=== PATIENT | male | born 1975 | race Caucasian/White ===

== ENCOUNTER 2017-12-08 00:40 | Emergency (ER) | payer BC ==
--- OUTSIDE RECORDS SUMMARY | 2017-12-08 00:43 | XMS REPORT | Continuity of Care Document ---
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
325 mg=1 Active Enteric Coated tab, PO, BID, # 2018 Ortho Tablet 60 tab, 0 and Refill(s), given Spine to patient Dexamethasone
10 mg, 1 Inactive mL, Route: IVP, 2018 Orth[facility] Drug form: INJ, and ONCE, Dosing Spine Weight 120.545, kg, Start date: 12/01/17 13:19:00 CDT, Stop date: 12/01/17 13:19:00 CDT
Notes: MEDICATION WASTE Product Size: 10 mg Product Wasted: ___ mg Aspirin 81 MG
81 mg=1 Active Chewable Tablet tab, PO, BID, # 2018 Ortho 56 tab, 0 and Refill(s) Spine Acetaminophen 325
1 tab, PO, Active MG / Hydrocodone Q6H, PRN for 2018 Ortho Bitartrate 7.5 MG pain, X 10 day, and Oral Tablet # 40 tab, 0 Spine [Adams 7.5/325] Refill(s), given to patient celecoxib 200 MG
200 mg=1 Active Oral Capsule cap, PO, BID, # 2018 Ortho [Celebrex] 28 cap, 0 and Refill(s) Spine Lisinopril
40 mg, 2 Inactive tab, Route: PO2017 Ortho Drug form: TAB, and Daily, Dosing Spine Weight 120.545, kg, Start date: 12/01/17 9:00:00 CDT, Duration: 30 day, Stop date: 12/30/17 9:00:00 CDT
Notes: (Same as: Prinivil, Zestril) carvedilol
12.5 mg, 1 Inactive tab, Route: PO, 2017 Ortho Drug form: TAB, and Daily, Dosing Spine Weight 120.545, kg, Start date: 12/01/17 9:00:00 CDT, Duration: 30 day, Stop date: 12/30/17 9:00:00 CDT
Notes: Give with food. (Same As: Coreg) Amlodipine
10 mg, 1 Inactive tab, Route: PO, 2017 Ortho Drug form: TAB, and Daily, Dosing Spine Weight 120.545, kg, Start date: 12/01/17 9:00:00 CDT, Duration: 30 day, Stop date: 12/30/17 9:00:00 CDT
Notes: (Same as: Norvasc) Aspirin 325 MG
325 mg, 1 Inactive Enteric Coated tab, Route: PO, 2017 Ortho Tablet Drug form: and ECTAB, Q12H, Spine Dosing Weight 120.545, kg, Start date: 12/01/17 9:00:00 CDT, Duration: 30 day, Stop date: 12/30/17 21:00:00 CDT
Notes: (Do Not Crush) Do not crush or chew. Zofran
4 mg, 1 Inactive tab, Route: PO, 2017 Ortho Drug form: and TABDIS, Q8H, Spine Dosing Weight 120.545, kg, Start date: 12/01/17 0:00:00 CDT, Duration: 3 doses or times, Stop date: 12/01/17 16:00:00 CDT
Notes: (Same as: Zofran ODT) Tranexamic Acid
1.95 gm, 3 Inactive tab, Route: PO, 2017 Ortho Drug form: TAB, and ONCE, Dosing Spine Weight 120.545, kg, Start date: 11/30/17 19:19:00 CDT, Stop date: 11/30/17 19:19:00 CDT
Notes: (Same as: Lysteda) Non-Formulary docusate sodium
100 mg, 1 No Longer cap, Route: PO, Active 2018 Ortho Drug form: CAP, and BID, Dosing Spine Weight 120.545, kg, Start date: 11/30/17 17:00:00 CDT, Duration: 30 day, Stop date: 12/30/17 9:00:00 CDT
Notes: (Same as: Colace) (Do Not Crush) Celebrex
200 mg, 1 No Longer cap, Route: PO, Active 2017 Ortho Drug form: CAP, and BID, Dosing Spine Weight 120.545, kg, Start date: 11/30/17 17:00:00 CDT, Duration: 30 day, Stop date: 12/30/17 9:00:00 CDT
Notes: NSAID. Please check indication. Not for seizure. (Same As: CeleBREX) Cefazolin
2 gm, 100 No Longer mL, Route: IVPB, Active 2017 Ortho Drug form: INJ, and Q6H, Dosing Spine Weight 120.545, kg, Start date: 11/30/17 16:00:00 CDT, Duration: 3 doses or times, Stop date: 12/01/17 4:00:00 CDT, ABX Indication: Surgical Prophylaxis
Notes: Same as: Ancef Diphenhydramine
50 mg, 2 No Longer cap, Route: PO, Active 2017 Ortho Drug form: CAP, and TID, Dosing Spine Weight 120.545, kg, PRN Itching, Start date: 11/30/17 13:19:00 CDT, Duration: 30 day, Stop date: 12/30/17 13:18:00 CDT
Notes: (Same as: Benadryl) POLYETHYLENE
17 gm, 1 No Longer GLYCOL 3350 pkt, Route: PO, Active 2018 Ortho Drug form: PWDR, and ONCE, Dosing Spine Weight 120.545, kg, PRN Constipation, Start date: 11/30/17 13:19:00 CDT
Notes: Dissolve in 8 oz of water or juice. (Same as: Miralax) Dulcolax Laxative
5 mg, 1 No Longer tab, Route: PO, Active 2018 Ortho Drug form: and ECTAB, ONCE, Spine Dosing Weight 120.545, kg, PRN Constipation, Start date: 11/30/17 13:19:00 CDT
Notes: (Same As: Dulcolax, Correctol) (Do Not Crush) "Do Not Crush" Melatonin
3 mg, 1 No Longer tab, Route: PO, Active 2017 Ortho Drug form: TAB, and Bedtime, Dosing Spine Weight 120.545, kg, PRN Sleep, Start date: 11/30/17 13:19:00 CDT, Duration: 30 day, Stop date: 12/30/17 13:18:00 CDT
Notes: (Same as: Melatonin) Morphine
4 mg, 2 mL, No Longer Route: IVP, Drug Active 2017 Ortho form: INJ, Q4H, and Dosing Weight Spine 120.545, kg, PRN Pain Score 7-10, Start date: 11/30/17 13:19:00 CDT, Stop date: 12/30/17 13:18:00 CDT
Notes: (Same as:MORPhine Sulfate) Acetaminophen 325
1 tab, No Longer MG / Hydrocodone Route: PO, Drug Active 2018 Ortho Bitartrate 5 MG Form: TAB, and Oral Tablet Dosing Weight Spine [Adams 5/325] 120.545, kg, Q4H, PRN Pain Score 1-3, Start date: 11/30/17 13:19:00 CDT, Duration: 30 day, Stop date: 12/30/17 13:18:00 CDT
Notes: (Same as: Adams 325/5) Do not exceed 4gm/day of acetaminophen. Famotidine
20 mg, 1 No Longer tab, Route: PO, Active 2018 Ortho Drug form: TAB, and BID, Dosing Spine Weight 120.545, kg, PRN Indigestion, Start date: 11/30/17 13:19:00 CDT, Duration: 30 day, Stop date: 12/30/17 13:18:00 CDT
Notes: (Same as: Pepcid) Tylenol
650 mg, 2 No Longer tab, Route: PO, Active 2018 Ortho Drug form: TAB, and Q6H, Dosing Spine Weight 120.545, kg, PRN For Temp > 100.4 F, Start date: 11/30/17 13:19:00 CDT, Duration: 30 day, Stop date: 12/30/17 13:18:00 CDT
Notes: Do not exceed 4 gm/day. (Same as: Tylenol) Acetaminophen 325
1 tab, No Longer MG / Hydrocodone Route: PO, Drug Active 2018 Ortho Bitartrate 10 MG Form: TAB, and Oral Tablet Dosing Weight Spine 120.545, kg, Q4H, PRN Pain Score 4-6, Start date: 11/30/17 13:19:00 CDT, Duration: 30 day, Stop date: 12/30/17 13:18:00 CDT
Notes: Do not exceed 4gm/day of acetaminophen. (Same as: Adams 325/10) NS 1,000 mL
1,000 mL, No Longer Rate: 85 ml/hr, Active 2018 Ortho Infuse over: and 11.8 hr, Route: Spine IV, Dosing Weight 120.545 kg, Total Volume: 1,000, Start date: 11/30/17 13:19:00 CDT, Duration: 30 day, Stop date: 12/30/17 13:18:00 CDT, 2.5, m2 ondansetron
Route: IV, Inactive (ANES) Drug form: INJ, 2018 Ortho ONCE, Stop date: and 11/30/17 Spine 13:10:00 CDT fentaNYL (ANES)
Route: IV, Inactive Drug form: INJ, 2018 Ortho ONCE, Stop date: and 11/30/17 Spine 13:05:00 CDT fentaNYL (ANES)
Route: IV, Inactive Drug form: INJ, 2018 Ortho ONCE, Stop date: and 11/30/17 Spine 12:20:00 CDT dexamethasone
Route: IV, Inactive (ANES) Drug form: INJ, 2018 Ortho ONCE, Stop date: and 11/30/17 Spine 10:59:00 CDT rocuronium (ANES)
Route: IV, Inactive Drug form: INJ, 2018 Ortho ONCE, Stop date: and 11/30/17 Spine 10:59:00 CDT succinylcholine
Route: IV, Inactive (ANES) Drug form: INJ, 2018 Ortho ONCE, Stop date: and 11/30/17 Spine 10:54:00 CDT midazolam (ANES)
Route: IV, Inactive Drug form: SOLN, 2018 Ortho ONCE, Stop date: and 11/30/17 Spine 10:54:00 CDT lidocaine (ANES)
Route: IV, Inactive Drug form: INJ, 2018 Ortho ONCE, Stop date: and 11/30/17 Spine 10:54:00 CDT propofol (ANES)
Route: IV, Inactive Drug form: INJ, 2018 Ortho ONCE, Stop date: and 11/30/17 Spine 10:54:00 CDT ceFAZolin (ANES)
Route: IV, Inactive Drug form: INJ, 2018 Ortho ONCE, Stop date: and 11/30/17 Spine 10:28:00 CDT Lactated Ringers
1,000 mL, Inactive IV 1,000 mL Rate: 40 ml/hr, 2018 Ortho Infuse over: 25 and hr, Route: IV, Spine Dosing Weight 120.545 kg, Total Volume: 1,000, Start date: 11/30/17 9:55:00 CDT, Duration: 30 day, Stop date: 12/30/17 9:54:00 CDT, 2.5, m2 Lactated Ringers
Route: IV, Inactive Injection IV Total Volume: 2018 Ortho (ANES) 1000 mL 1,000, Start and date: 11/30/17 Spine 9:18:00 CDT, Stop date: 11/30/17 10:18:00 CDT Zofran ODT
4 mg, 1 No Longer tab, Route: PO, Active 2017 Ortho Drug form: and TABDIS, ONCE, Spine PRN Nausea & Vomiting, Start date: 11/30/17 9:02:00 CDT
Notes: (Same as: Zofran ODT) Naloxone
0.4 mg, 1 Inactive mL, Route: IVP, 2017 Ortho Drug form: INJ, and Q2MIN, Dosing Spine Weight 121.773, kg, PRN Narcotic Reversal, Start date: 11/30/17 7:45:00 CDT, Duration: 8 doses or times, Stop date: Limited # of times
Not es: Same as Narcan Flumazenil
0.2 mg, 2 Inactive mL, Route: IVP, 2017 Ortho Drug form: INJ, and PRN, Dosing Spine Weight 121.773, kg, PRN Benzodiazepine Reversal, Initial dose, Start date: 11/30/17 7:45:00 CDT, Stop date: 11/30/17 15:00:00 CDT
Notes : (Same as: Romazicon) Hydromorphone
0.5 mg, Inactive 0.25 mL, Route: 2017 Ortho IVP, Drug form: and INJ, Q5Min, Spine Dosing Weight 121.773, kg, PRN Pain Score 7-10, Start date: 11/30/17 7:45:00 CDT, Duration: 4 doses or times, Stop date: 11/30/17 15:00:00 CDT
Notes: Same as Dilaudid Ketorolac
30 mg, 1 Inactive mL, Route: IVP, 2017 Ortho Drug form: INJ, and ONCE, Dosing Spine Weight 121.773, kg, Start date: 11/30/17 7:45:00 CDT, Stop date: 11/30/17 7:45:00 CDT
Notes: (Same as:Toradol) IV bolus must be given >15 seconds. Give IM administration slowly and deeply into the muscle. Not for use > 4 days MEDICATION WASTE Product Size: 30 mg Product Wasted: ___ mg Acetaminophen
1,000 mg, Inactive 100 mL, Route: 2018 Ortho IVPB, Drug form: and INJ, ONCE, Spine Dosing Weight 121.773, kg, PRN Pain Score 1-5, Start date: 11/30/17 7:45:00 CDT
Notes: Infuse over 15 minutes Do not exceed 4gm/day of acetaminophen MEDICATION WASTE Product Size: 1000 mg Product Wasted: ___ mg Morphine
2 mg, 0.2 Inactive mL, Route: IVP, 2017 Ortho Drug form: INJ, and Q5Min, Dosing Spine Weight 121.773, kg, PRN Pain Score 4-6, Start date: 11/30/17 7:45:00 CDT, Duration: 5 doses or times, Stop date: 11/30/17 15:00:00 CDT
Notes : (Same as:MORPhine Sulfate) Oxycodone
10 mg, 2 Inactive tab, Route: PO, 2017 Ortho Drug form: TAB, and Q4H, Dosing Spine Weight 121.773, kg, PRN Pain Score 7-10, Start date: 11/30/17 7:45:00 CDT, Stop date: 11/30/17 15:00:00 CDT
Notes: (Same as: Roxicodone) Ondansetron
4 mg, 2 mL, Inactive Route: IVP, Drug 2017 Ortho form: INJ, ONCE, and Dosing Weight Spine 121.773, kg, PRN Nausea & Vomiting, Start date: 11/30/17 7:45:00 CDT
Notes: (Same as: Zofran) MEDICATION WASTE Product Size: 4 mg Product Wasted: ___ mg Meperidine
12.5 mg, Inactive 0.5 mL, Route: 2017 Ortho IVP, Drug form: and INJ, Q10Min, Spine Dosing Weight 121.773, kg, PRN Other -See Comment, For shivering, Start date: 11/30/17 7:45:00 CDT, Duration: 2 doses or times, Stop date: 11/30/17 15:00:00 CDT
Notes: (Same as: Demerol) "Use Precaution in Elderly, Seizure disorders, and Renal impairment" Promethazine
6.25 mg, Inactive 0.25 mL, Route: 2017 Ortho IVPB, Drug form: and INJ, ONCE, Spine Dosing Weight 121.773, kg, PRN Nausea & Vomiting, Start date: 11/30/17 7:45:00 CDT
Notes: Do not give IV push. (Same as: Phenergan) Hydralazine
10 mg, 0.5 Inactive mL, Route: IVP, 2017 Ortho Drug form: INJ, and Q20Min, Dosing Spine Weight 121.773, kg, PRN Elevated BP, Start date: 11/30/17 7:45:00 CDT, Duration: 2 doses or times, Stop date: 11/30/17 15:00:00 CDT
Notes : (Same as: Apresoline) Push over 5 minutes Labetalol
10 mg, 2 Inactive 11/30/ mL, Route: IVP, 2017 Ortho Drug form: INJ, and Q5Min, Dosing Spine Weight 121.773, kg, PRN Elevated BP, Start date: 11/30/17 7:45:00 CDT, Duration: 5 doses or times, Stop date: 11/30/17 15:00:00 CDT Tranexamic Acid
1.95 gm, 3 Inactive 11/30/ tab, Route: PO, 2017 Ortho Drug form: TAB, and ONCE, Dosing Spine Weight 121.773, kg, Start date: 11/30/17 7:05:00 CDT, Stop date: 11/30/17 7:05:00 CDT
Notes: (Same as: Lysteda) Non-Formulary Zofran ODT
4 mg, 1 Inactive tab, Route: PO, 2017 Ortho Drug form: and TABDIS, ONCE, Spine Dosing Weight 121.773, kg, Start date: 11/30/17 7:04:00 CDT, Stop date: 11/30/17 7:04:00 CDT
Notes: (Same as: Zofran ODT) Celebrex
400 mg, 2 Inactive cap, Route: PO, 2017 Ortho Drug form: CAP, and ONCE, Dosing Spine Weight 121.773, kg, Start date: 11/30/17 7:04:00 CDT, Stop date: 11/30/17 7:04:00 CDT
Notes: NSAID. Please check indication. Not for seizure. (Same As: CeleBREX) Dexamethasone
10 mg, 1 Inactive mL, Route: IVP2017 Ortho Drug form: INJ, and ONCE, Dosing Spine Weight 121.773, kg, Start date: 11/30/17 7:04:00 CDT, Stop date: 11/30/17 7:04:00 CDT
Notes: MEDICATION WASTE Product Size: 10 mg Product Wasted: ___ mg Ancef
2 gm, 100 Inactive mL, Route: IVPB2017 Ortho Drug form: INJ, and ONCE, Dosing Spine Weight 121.773, kg, Start date: 11/30/17 7:03:00 CDT, Stop date: 11/30/17 7:03:00 CDT, ABX Indication: Surgical Prophylaxis
Notes: Same as: Ancef Ancef + Sodium
1 gm, Inactive Chloride 0.9% IV Route: IVPB2017 Ortho 100 mL ONCE, Dosing and Weight 121.773, Spine kg, Start date: 11/30/17 7:02:00 CDT, Stop date: 11/30/17 7:02:00 CDT, ABX Indication: Surgical Prophylaxis
Notes: (Same As: Brant Haas) MEDICATION WASTE Product Size: 1000 mg Product Wasted: ___ mg polymyxin B
125,000 No Longer sulfate + Sodium unit, Route: Active 2018 Ortho Chloride 0.9% IV IRRIG, ONCALL, and 250 mL Start date: Spine 11/30/17 6:00:00 CDT, Duration: 1 doses or times, Stop date: 11/30/17 13:00:00 CDT, ABX Indication: Surgical Prophylaxis
Notes: (Same as: Polymyxin B Sulfate) vancomycin +
500 mg, No Longer Sodium Chloride Route: IRRIG, Active 2017 Ortho 0.9% IV 250 mL ONCALL, Start and date: 11/30/17 Spine 6:00:00 CDT, Duration: 1 doses or times, Stop date: 11/30/17 13:00:00 CDT, ABX Indication: Surgical Prophylaxis
Notes: TIME CRITICAL MEDICATION (Same As: Vancocin) For adult patients only: Round to nearest 250 mg per Medical Staff approval ropivacaine 0.5%
100 ml/hr, No Longer 246.25 mg + Route: Active 2017 Ortho EPINEPHrine 0.5 InFILtration(loc and mg + ketOROLAC 30 al), ONCALL, Spine mg/mL injectable Start date: solution 30 mg + 11/29/17 6:00:00 cl CDT, Stop date: 11/29/17 13:00:00 CDT meloxicam 15 mg
15 mg=1 Active oral tablet tab, PO, Daily, 2017 Ortho # 30 tab, 0 and Refill(s) Spine amLODIPine 10 mg
10 mg=1 Active oral tablet tab, PO, Daily, 2017 Ortho TAKE DOS, # 30 and tab, 0 Refill(s) Spine carvedilol 12.5
12.5 mg=1 Active mg oral tablet tab, PO, Daily, 2017 Ortho TAKE DOS, # 60 and tab, 0 Refill(s) Spine lansoprazole 15
30 mg, PO, Active MG Enteric Coated Daily, # 15 cap, 2018 Ortho Capsule 0 Refill(s) and [Prevacid] Spine lisinopril 40 mg
40 mg=1 Active oral tablet tab, PO, Daily, 2017 Ortho # 30 tab, 0 and Refill(s) Spine Allergies, Adverse Reactions, Alerts Substance Category Reaction Severity Reaction Status Date Comments Source type Reported NKDA Assertion Drug Active [facility] allergy [facility] Immunizations Immunization Date Given Site Status Last Updated Comments Source Results Order Name Results Value Reference Date Interpretation Comments Source Range CHEM PANEL A/G Ratio 1.2 0.7 - 1.6 12/01 [facility] CHEM PANEL Globulin 2.8 g/dL 2.7 - 4.2 12/01 [facility] CHEM PANEL B/C Ratio 14 6 - 25 12/01 [facility] CHEM PANEL AGAP 10.8 meq/L 10.0 - 12/01 20.0 [facility] CHEM PANEL eGFR 108 12/01 Result Comment: The eGFR is calculated using the CKD-EPI formula. In most young, healthy individuals the eGFR will be >90 mL/ min/1.73m2. The eGFR declines with age. An eGFR of 60-89 may be normal in mL/min/1.73 /2017 some populations, particularly the elderly, for whom the CKD-EPI formula has not been extensively validated. Use of the eGFR is not recommended in the following populations: Ortho m2 and Individuals with unstable creatinine concentrations, including patients and those with serious co-morbid conditions. Spine Patients with extremes in muscle mass or diet. The data above are obtained from the National Kidney Disease Education Program (NKDEP) which additionally recommends that when the eGFR is used in patients with extremes of body mass index for purposes of drug dosing, the eGFR should be multiplied by the estimated BMI. CHEM PANEL Calcium Lvl 7.8 mg/dL 8.5 - 10.5 12/01 [facility] CHEM PANEL Potassium Lvl 3.8 meq/L 3.5 - 5.1 12/01 [facility] CHEM PANEL Chloride Lvl 101 meq/L 95 - 109 12/01 [facility] CHEM PANEL CO2 28 meq/L 24 - 32 12/01 [facility] Sp[facility] CHEM PANEL Creatinine 0.86 mg/dL 0.50 - 06/15 [facility] Lvl 1.40 /2017 [facility] Spine CHEM PANEL Glucose Lvl 126 mg/dL 70 - 99 12/01 [facility] Sp[facility] CHEM PANEL BUN 12 mg/dL 7 - 22 12/01 [facility] Sp[facility] CHEM PANEL Alk Phos 65 unit/L 39 - 136 12/01 [facility] Spine CHEM PANEL ALANINE 63 unit/L 0 - 65 12/01 [facility] AMINOTRANSFER Ortho ASE and Spine CHEM PANEL Albumin Lvl 3.4 g/dL 3.5 - 5.0 12/01 [facility] Spine CHEM PANEL Total Protein 6.2 g/dL 6.4 - 8.4 12/01 [facility] Sp[facility] CHEM PANEL Sodium Lvl 136 meq/L 135 - 145 12/01 [facility] Spine CHEM PANEL ASPARTATE 38 unit/L 0 - 37 12/01 [facility] TRANSAMINASE [facility] Spine CHEM PANEL Bili Total 0.6 mg/dL 0.2 - 1.3 12/01 [facility] and Spine HEMATOLOGY Hgb 10.9 g/dL 14.0 - 12/01 MH 18.0 [facility] and Spine HEMATOLOGY Hct 31.9 % 42.0 - 12/01 MH 54.0 Ortho and Spine BLOOD BANK Antibody Scrn Negative 11/24 RESULTS /2017 Ortho (11/24/17 12:30 PM) and Spine BLOOD BANK ABO/Rh A NEG 11/24 RESULTS /2017 [facility] and Spine CHEM PANEL Bili Total 0.7 mg/dL 0.2 - 1.3 11/24 [facility] and Spine CHEM PANEL eGFR 104 11/24 Result Comment: The eGFR is calculated using the CKD-EPI formula. In most young, healthy individuals the eGFR will be >90 mL/ min/1.73m2. The eGFR declines with age. An eGFR of 60-89 may be normal in mL/min/1.73 /2018 some populations, particularly the elderly, for whom the CKD-EPI formula has not been extensively validated. Use of the eGFR is not recommended in the following populations: Ortho m2 and Individuals with unstable creatinine concentrations, including patients and those with serious co-morbid conditions. Spine Patients with extremes in muscle mass or diet. The data above are obtained from the National Kidney Disease Education Program (NKDEP) which additionally recommends that when the eGFR is used in patients with extremes of body mass index for purposes of drug dosing, the eGFR should be multiplied by the estimated BMI. CHEM PANEL Potassium Lvl 3.6 meq/L 3.5 - 5.1 11/24 [facility] Spine CHEM PANEL Sodium Lvl 137 meq/L 135 - 145 11/24 [facility] Spine CHEM PANEL BUN 8 mg/dL 7 - 22 11/24 [facility] Spine CHEM PANEL Creatinine 0.91 mg/dL 0.50 - 06 [facility] Lvl 1.40 /2017 [facility] and Spine CHEM PANEL Glucose Lvl 96 mg/dL 70 - 99 11/24 [facility] Spine CHEM PANEL CO2 31 meq/L 24 - 32 11/24 [facility] Spine CHEM PANEL Chloride Lvl 99 meq/L 95 - 109 11/24 [facility] Spine CHEM PANEL Alk Phos 89 unit/L 39 - 136 11/24 [facility] Spine CHEM PANEL ALANINE 59 unit/L 0 - 65 11/24 [facility]INO [facility] ASE and Spine CHEM PANEL ASPARTATE 46 unit/L 0 - 37 11/24 [facility] and Spine CHEM PANEL Albumin Lvl 4.5 g/dL 3.5 - 5.0 11/24 [facility] and Spine CHEM PANEL Total Protein 7.4 g/dL 6.4 - 8.4 11/24 [facility] and Spine CHEM PANEL Calcium Lvl 9.0 mg/dL 8.5 - 10.5 11/24 [facility] Spine CHEM PANEL Globulin 2.9 g/dL 2.7 - 4.2 11/24 [facility] and Spine CHEM PANEL B/C Ratio 9 6 - 25 11/24 [facility] and Spine CHEM PANEL AGAP 10.6 meq/L 10.0 - 06 MH 20.0 [facility] and Spine CHEM PANEL A/G Ratio 1.6 0.7 - 1.6 11/24 [facility] and Spine HEMATOLOGY Monocytes 8.1 % 2.0 - 12.0 11/24 [facility] and Spine HEMATOLOGY Eosinophils # 0.1 K/CMM 0.0 - 0.5 11/24 [facility] and Spine HEMATOLOGY Monocytes # 0.4 K/CMM 0.0 - 0.8 11/24 [facility] Spine HEMATOLOGY Lymphocytes # 1.1 K/CMM 1.0 - 5.5 11/24 [facility] and Spine HEMATOLOGY Segs-Bands # 3.9 K/CMM 1.5 - 8.1 11/24 [facility] Spine HEMATOLOGY Basophils 0.7 % 0.0 - 1.0 11/24 [facility] and Spine HEMATOLOGY Eosinophils 1.4 % 0.0 - 4.0 11/24 [facility] Spine HEMATOLOGY Lymphocytes 19.4 % 20.0 - 11/24 MH 40.0 /2017 [facility] and Spine HEMATOLOGY Segs 70.4 % 45.0 - 11/24 MH 75.0 /2017 [facility] and Spine HEMATOLOGY INR 1.00 0.85 - 11/24 MH 1.17 /2017 [facility] Spine HEMATOLOGY PROTIME 13.2 s 12.0 - 11/24 MH 14.7 /2017 [facility] and Spine HEMATOLOGY aPTT 28.9 s 22.9 - 11/24 MH 35.8 /2017 [facility] Spine HEMATOLOGY MPV 8.8 fL 7.4 - 10.4 11/24 [facility] Spine HEMATOLOGY Platelet 148 K/CMM 133 - 450 11/24 [facility] Sp[facility] HEMATOLOGY Hgb 14.3 g/dL 14.0 - 11/24 MH 18.0 [facility] and Spine HEMATOLOGY Hct 42.2 % 42.0 - 11/24 MH 54.0 /2017 [facility] Spine HEMATOLOGY MCH 30.6 pg 27.0 - 11/24 31.0 [facility] Spine HEMATOLOGY MCV 90.5 fL 80.0 - 11/24 94.0 [facility] Spine HEMATOLOGY MCHC 33.8 g/dL 32.0 - 11/24 MH 36.0 [facility] Spine HEMATOLOGY WBC 5.5 K/CMM 3.7 - 10.4 11/24 [facility] Spine HEMATOLOGY RBC 4.66 M/CMM 4.70 - 11/24 MH 6.10 /2017 [facility] and Spine HEMATOLOGY RDW 12.8 % 11.5 - 11/24 14.5 [facility] and Spine URINE CHEM U Cotinine Negative Negative 11/24 Lvl Ortho *NA* and Spine (11/24/17 12:30 PM) URINE AND UA WBC 0-2 /HPF None Seen 11/24 STOOL /HPF /2017 Ortho and Spine URINE AND UA Sq Epi None Seen Few 11/24 STOOL /2018 Ortho (11/24/17 12:12 PM) and Spine URINE AND UA Bacteria Occasional None Seen 11/24 STOOL /HPF /HPF /2017 [facility] and Spine URINE AND UA RBC 0-2 /HPF 0 - 2 11/24 STOOL [facility]o and Spine URINE AND UA Leuk Est Negative Negative 11/24 STOOL Ortho (11/24/17 12:12 PM) and Spine URINE AND UA Ketones Negative Negative 11/24 STOOL Ortho *NA* and Spine (11/24/17 12:12 PM) URINE AND UA Bili Negative Negative 11/24 STOOL Ortho *NA* and Spine (11/24/17 12:12 PM) URINE AND UA pH 7.0 5.0 - 8.0 11/24 STOOL Ortho and Spine URINE AND UA Glucose Negative Negative 11/24 STOOL Ortho (11/24/17 12:12 PM) and Spine URINE AND UA Protein Negative Negative 11/24 STOOL Ortho (11/24/17 12:12 PM) and Spine URINE AND UA Nitrite Negative Negative 11/24 STOOL Ortho (11/24/17 12:12 PM) and Spine URINE AND UA 1.0 EU/dL 0.1 - 1.0 11/24 STOOL Urobilinogen Ortho and Spine URINE AND UA Blood Negative Negative 11/24 STOOL Ortho (11/24/17 12:12 PM) and Spine URINE AND UA Spec Grav <=1.005 <=1.030 11/24 STOOL
*NA*<b Ortho r/>(11/24/17 and 12:12 PM) Spine URINE AND UA Turbidity Clear Clear 11/24 STOOL Ortho (11/24/17 12:12 PM) and Spine URINE AND UA Color Yellow Yellow 11/24 STOOL Ortho *NA* and Spine (11/24/17 12:12 PM) Vital Signs Vital Sign Value Date Comments Source Systolic (mm Hg) 118 12/01/2017 [facility] Spine Diastolic (mm Hg) 85 12/01/2017 [facility] Respitory Rate 18 12/01/2017 [facility] Heart Rate 87 12/01/2017 [facility] Temperature Oral (F) 98.1 F 12/01/2017 [facility] Heart Rate 89 12/01/2017 [facility] Systolic (mm Hg) 114 12/01/2017 [facility] Diastolic (mm Hg) 75 12/01/2017 [facility] Respitory Rate 18 12/01/2017 [facility] Heart Rate 86 12/01/2017 [facility] Systolic (mm Hg) 129 12/01/2017 [facility] Diastolic (mm Hg) 86 12/01/2017 [facility] Respitory Rate 18 12/01/2017 [facility] Temperature Oral (F) 98.1 F 12/01/2017 [facility] Temperature Oral (F) 97.9 F 12/01/2017 [facility] BMI Calculated 36.04 11/30/2017 [facility] Weight 120.545 11/30/2017 [facility] Height 182.88 cm 11/23/2017 [facility] Encounters Location Location Encounter Encounter Reason Attending ADM DC Status Source Details Type Number For Provider Date Date Visit [facility] Inpatient [id number] Dandre 11/30 12/01 Wilton Carballo [facility] Procedures Procedure Code Date Perfomer Comments Source Lumbar discectomy [id number] 06/19/2010 [facility]
--- OUTSIDE RECORDS SUMMARY | 2017-12-08 00:43 | XMS REPORT | Summary of Care ---
:1975 Author Organization [facility] Address [address] [place] [address]- Encounter HQ Sonur_steven(FIN) [phone] Date(s): 11/30/17 - 12/01/17 [facility] [address] [place] [phone]- [phone] Discharge Disposition: Home or Self Care Attending Physician: Dandre Stout MD Admitting Physician: Dandre Stout MD Referring Physician: Dandre Stout MD Vital Signs Most recent to oldest 1 2 3 [Reference Range]: Height 182.88 cm (11/23/17 1:19 PM) Temperature Oral [96.4-99.1 98.1 DegF 98.1 DegF 97.9 DegF DegF] (12/01/17 11:20 AM) (12/01/17 8:00 AM) (12/01/17 4:05 AM) Blood Pressure [90-140/60-90 118/85 mmHg 114/75 mmHg 129/86 mmHg mmHg] (12/01/17 11:20 AM) (12/01/17 10:55 AM) (12/01/17 9:36 AM) Respiratory Rate [14-20 18 BRMIN 18 BRMIN 18 BRMIN BRMIN] (12/01/17 11:20 AM) (12/01/17 9:36 AM) (12/01/17 8:00 AM) Peripheral Pulse Rate [60-100 87 bpm 89 bpm 86 bpm bpm] (12/01/17 11:20 AM) (12/01/17 10:55 AM) (12/01/17 9:36 AM) Weight 120.545 kg (11/30/17 6:10 AM) Body Mass Index 36.04 m2 (11/30/17 6:10 AM) Problem List Condition Effective Dates Status Health Status Informant Avascular necrosis(Confirmed) Active GERD (gastroesophageal reflux Active disease)(Confirmed) HTN (hypertension)(Confirmed) Active Pancreatitis(Confirmed) Resolved Allergies, Adverse Reactions, Alerts Substance Reaction Severity Status NKDA Active Medications acetaminophen-hydrocodone 325 mg-10 mg oral tablet 1 tab, Route: PO, Drug Form: TAB, Dosing Weight 120.545, kg, Q4H, PRN Pain Score 4-6, Start date: 11/30/17 13:19:00 CDT, Duration: 30 day, Stop date: 12/30 13:18:00 CDT Notes: Do not exceed 4gm/day of acetaminophen. (Same as: Pioneer 325/10) Start Date: 11/30/17 Stop Date: 12/01/17 Status: DiscontinuedamLODIPine 10 mg, 1 tab, Route: PO, Drug form: TAB, Daily, Dosing Weight 120.545, kg, Start date: 12/01/17 9:00:00 CDT, Duration: 30 day, Stop date: 12/30/17 9:00:00 CDT Notes: (Same as: Norvasc) Start Date: 12/01/17 Stop Date: 12/01/17 Status: DiscontinuedamLODIPine 10 mg oral tablet 10 mg=1 tab, PO, Daily, TAKE DOS, # 30 tab, 0 Refill(s) Start Date: 11/23/17 Status: OrderedAncef 2 gm, 100 mL, Route: IVPB, Drug form: INJ, ONCE, Dosing Weight 121.773, kg, Start date: 11/30/17 7:03:00 CDT, Stop date: 11/30/17 7:03:00 CDT, ABX Indication: Surgical Prophylaxis Notes: Same as: Ancef Start Date: 11/30/17 Stop Date: 11/30/17 Status: CompletedAncef + Sodium Chloride 0.9% IV 100 mL 1 gm, Route: IVPB, ONCE, Dosing Weight 121.773, kg, Start date: 11/30/17 7:02: 00 CDT, Stop date: 11/30/17 7:02:00 CDT, ABX Indication: Surgical Prophylaxis Notes: (Same As: Ancef, Kefzol) MEDICATION WASTE Product Size: 1000 mgProduct Wasted: ___ mg Start Date: 11/30/17 Stop Date: 11/30/17 Status: CompletedANES acetaminophen 1,000 mg, 100 mL, Route: IVPB, Drug form: INJ, ONCE, Dosing Weight 121.773, kg, PRN Pain Score 1-5, Start date: 11/30/17 7:45:00 CDT Notes: Infuse over 15 minutesDo not exceed 4gm/day of acetaminophen MEDICATION WASTE ProductSize: 1000 mgProduct Wasted: ___ mg Start Date: 11/30/17 Stop Date: 11/30/17 Status: CompletedANES flumazenil 0.2 mg, 2 mL, Route: IVP, Drug form: INJ, PRN, Dosing Weight 121.773, kg, PRN Benzodiazepine Reversal, Initial dose, Start date: 11/30/17 7:45:00 CDT, Stop date: 11/30/17 15:00:00 CDT Notes: (Same as: Romazicon) Start Date: 11/30/17 Stop Date: 11/30/17 Status: DiscontinuedANES hydrALAZINE 10 mg, 0.5 mL, Route: IVP, Drug form: INJ, Q20Min, Dosing Weight 121.773, kg, PRN Elevated BP, Startdate: 11/30/17 7:45:00 CDT, Duration: 2 doses or times, Stop date: 11/30/17 15:00:00 CDT Notes: (Same as: Apresoline)Push over 5 minutes Start Date: 11/30/17 Stop Date: 11/30/17 Status: DiscontinuedANES HYDROmorphone 0.5 mg, 0.25 mL, Route: IVP, Drug form: INJ, Q5Min, Dosing Weight 121.773, kg, PRN Pain Score 7-10, Start date: 11/30/17 7:45:00 CDT, Duration: 4 doses or times, Stop date: 11/30/17 15:00:00 CDT Notes: Same as Dilaudid Start Date: 11/30/17 Stop Date: 11/30/17 Status: CompletedANES ketOROLAC 30 mg, 1 mL, Route: IVP, Drug form: INJ, ONCE, Dosing Weight 121.773, kg, Start date: 11/30/17 7:45:00 CDT, Stop date: 11/30/17 7:45:00 CDT Notes: (Same as:Toradol) IV bolus must be given >15 seconds. Give IM administration slowly and deeply into the muscle.Not for use > 4 days MEDICATION WASTE Product Size: 30 mgProduct Wasted: ___ mg Start Date: 11/30/17 Stop Date: 11/30/17 Status: DiscontinuedANES labetalol 10 mg, 2 mL, Route: IVP, Drug form: INJ, Q5Min, Dosing Weight 121.773, kg, PRN Elevated BP, Start date: 11/30/17 7:45:00 CDT, Duration: 5 doses or times, Stop date: 11/30/17 15:00:00 CDT Start Date: 11/30/17 Stop Date: 11/30/17 Status: DiscontinuedANES meperidine 12.5 mg, 0.5 mL, Route: IVP, Drug form: INJ, Q10Min, Dosing Weight 121.773, kg, PRN Other -See Comment, For shivering, Start date: 11/30/17 7:45:00 CDT, Duration: 2 doses or times, Stop date: 11/30/17 15:00:00 CDT Notes: (Same as: Demerol) "Use Precaution in Elderly, Seizure disorders, and Renal impairment" Start Date: 11/30/17 Stop Date: 11/30/17 Status: DiscontinuedANES morphine Sulfate 2 mg, 0.2 mL, Route: IVP, Drug form: INJ, Q5Min, Dosing Weight 121.773, kg, PRN Pain Score 4-6, Start date: 11/30/17 7:45:00 CDT, Duration: 5 doses or times, Stop date: 11/30/17 15:00:00 CDT Notes: (Same as:MORPhine Sulfate) Start Date: 11/30/17 Stop Date: 11/30/17 Status: DiscontinuedANES naloxone 0.4 mg, 1 mL, Route: IVP, Drug form: INJ, Q2MIN, Dosing Weight 121.773, kg, PRN Narcotic Reversal, Start date: 11/30/17 7:45:00 CDT, Duration: 8 doses or times , Stop date: Limited # of times Notes: Same as Narcan Start Date: 11/30/17 Stop Date: 11/30/17 Status: DiscontinuedANES ondansetron 4 mg, 2 mL, Route: IVP, Drug form: INJ, ONCE, Dosing Weight 121.773, kg, PRN Nausea & Vomiting, Start date: 11/30/17 7:45:00 CDT Notes: (Same as: Zofran) MEDICATION WASTE Product Size: 4 mgProduct Wasted: ___ mg Start Date: 11/30/17 Stop Date: 11/30/17 Status: DiscontinuedANES oxyCODONE 10 mg, 2 tab, Route: PO, Drug form: TAB, Q4H, Dosing Weight 121.773, kg, PRN Pain Score 7-10, Start date: 11/30/17 7:45:00 CDT, Stop date: 11/30/17 15:00:00 CDT Notes: (Same as: Roxicodone) Start Date: 11/30/17 Stop Date: 11/30/17 Status: DiscontinuedANES promethazine 6.25 mg, 0.25 mL, Route: IVPB, Drug form: INJ, ONCE, Dosing Weight 121.773, kg, PRN Nausea & Vomiting, Start date: 11/30/17 7:45:00 CDT Notes: Do not give IV push. (Same as: Phenergan) Start Date: 11/30/17 Stop Date: 11/30/17 Status: Discontinuedaspirin 325 mg tablet, enteric coated 325 mg=1 tab, PO, BID, # 60 tab, 0 Refill(s), given to patient Start Date: 12/01/17 Stop Date: 12/31/17 Status: Orderedaspirin 325 mg tablet, enteric coated 325 mg, 1 tab, Route: PO, Drug form: ECTAB, Q12H, Dosing Weight 120.545, kg, Start date: 12/01/17 9:00:00 CDT, Duration: 30 day, Stop date: 12/30/17 21:00: 00 CDT Notes: (Do Not Crush) Do not crush or chew. Start Date: 12/01/17 Stop Date: 12/01/17 Status: Discontinuedaspirin 81 mg tablet, chewable 81 mg=1 tab, PO, BID, # 56 tab, 0 Refill(s) Start Date: 12/01/17 Stop Date: 12/29/17 Status: Orderedcarvedilol 12.5 mg, 1 tab, Route: PO, Drug form: TAB, Daily, Dosing Weight 120.545, kg, Start date: 12/01/17 9:00:00 CDT, Duration: 30 day, Stop date: 12/30/17 9:00:00 CDT Notes: Give with food. (Same As: Coreg) Start Date: 12/01/17 Stop Date: 12/01/17 Status: Discontinuedcarvedilol 12.5 mg oral tablet 12.5 mg=1 tab, PO, Daily, TAKE DOS, # 60 tab, 0 Refill(s) Start Date: 11/23/17 Status: OrderedceFAZolin (ANES) Route: IV, Drug form: INJ, ONCE, Stop date: 11/30/17 10:28:00 CDT Start Date: 11/30/17 Stop Date: 11/30/17 Status: CompletedceFAZolin (SCIP) 2 gm, 100 mL, Route: IVPB, Drug form: INJ, Q6H, Dosing Weight 120.545, kg, Start date: 11/30/17 16:00:00 CDT, Duration: 3 doses or times, Stop date: 4:00:00 CDT, ABX Indication: Surgical Prophylaxis Notes: Same as: Ancef Start Date: 11/30/17 Stop Date: 12/01/17 Status: CompletedCeleBREX 200 mg, 1 cap, Route: PO, Drug form: CAP, BID, Dosing Weight 120.545, kg, Start date: 11/30/17 17:00:00 CDT, Duration: 30 day, Stop date: 12/30/17 9:00:00 CDT Notes: NSAID. Please check indication. Not for seizure. (Same As: CeleBREX) Start Date: 11/30/17 Stop Date: 12/01/17 Status: DiscontinuedCeleBREX 400 mg, 2 cap, Route: PO, Drug form: CAP, ONCE, Dosing Weight 121.773, kg, Start date: 11/30/17 7:04:00 CDT, Stop date: 11/30/17 7:04:00 CDT Notes: NSAID. Please check indication. Not for seizure. (Same As: CeleBREX) Start Date: 11/30/17 Stop Date: 11/30/17 Status: CompletedCeleBREX 200 mg oral capsule 200 mg=1 cap, PO, BID, # 28 cap, 0 Refill(s) Start Date: 12/01/17 Stop Date: 12/15/17 Status: Ordereddexamethasone 10 mg, 1 mL, Route: IVP, Drug form: INJ, ONCE, Dosing Weight 120.545, kg, Start date: 12/01/17 13:19:00 CDT, Stop date: 12/01/17 13:19:00 CDT Notes: MEDICATION WASTE Product Size: 10 mgProduct Wasted: ___ mg Start Date: 12/01/17 Stop Date: 12/01/17 Status: Completeddexamethasone 10 mg, 1 mL, Route: IVP, Drug form: INJ, ONCE, Dosing Weight 121.773, kg, Start date: 11/30/17 7:04:00 CDT, Stop date: 11/30/17 7:04:00 CDT Notes: MEDICATION WASTE Product Size: 10 mgProduct Wasted: ___ mg Start Date: 11/30/17 Stop Date: 11/30/17 Status: Completeddexamethasone (ANES) Route: IV, Drug form: INJ, ONCE, Stop date: 11/30/17 10:59:00 CDT Start Date: 11/30/17 Stop Date: 11/30/17 Status: CompleteddiphenhydrAMINE 50 mg, 2 cap, Route: PO, Drug form: CAP, TID, Dosing Weight 120.545, kg, PRN Itching, Start date: 11/30/17 13:19:00 CDT, Duration: 30 day, Stop date: 13:18:00 CDT Notes: (Same as: Benadryl) Start Date: 11/30/17 Stop Date: 12/01/17 Status: Discontinueddocusate sodium 100 mg, 1 cap, Route: PO, Drug form: CAP, BID, Dosing Weight 120.545, kg, Start date: 11/30/17 17:00:00 CDT, Duration: 30 day, Stop date: 12/30/17 9:00:00 CDT Notes: (Same as: Colace) (Do Not Crush) Start Date: 11/30/17 Stop Date: 12/01/17 Status: DiscontinuedDulcolax Laxative 5 mg, 1 tab, Route: PO, Drug form: ECTAB, ONCE, Dosing Weight 120.545, kg, PRN Constipation, Start date: 11/30/17 13:19:00 CDT Notes: (Same As: Dulcolax, Correctol) (Do Not Crush) "Do Not Crush" Start Date: 11/30/17 Stop Date: 12/01/17 Status: Discontinuedfamotidine 20 mg, 1 tab, Route: PO, Drug form: TAB, BID, Dosing Weight 120.545, kg, PRN Indigestion, Start date: 11/30/17 13:19:00 CDT, Duration: 30 day, Stop date: 13:18:00 CDT Notes: (Same as: Pepcid) Start Date: 11/30/17 Stop Date: 12/01/17 Status: DiscontinuedfentaNYL (ANES) Route: IV, Drug form: INJ, ONCE, Stop date: 11/30/17 13:05:00 CDT Start Date: 11/30/17 Stop Date: 11/30/17 Status: CompletedfentaNYL (ANES) Route: IV, Drug form: INJ, ONCE, Stop date: 11/30/17 12:20:00 CDT Start Date: 11/30/17 Stop Date: 11/30/17 Status: CompletedLactated Ringers Injection IV (ANES) 1000 mL Route: IV, Total Volume: 1,000, Start date: 11/30/17 9:18:00 CDT, Stop date: 10:18:00 CDT Start Date: 11/30/17 Stop Date: 11/30/17 Status: CompletedLactated Ringers IV 1,000 mL 1,000 mL, Rate: 40 ml/hr, Infuse over: 25 hr, Route: IV, Dosing Weight 120.545 kg, Total Volume: 1,000, Start date: 11/30/17 9:55:00 CDT, Duration: 30 day, Stop date: 12/30/17 9:54:00 CDT, 2.5, m2 Start Date: 11/30/17 Stop Date: 11/30/17 Status: Discontinuedlidocaine (ANES) Route: IV, Drug form: INJ, ONCE, Stop date: 11/30/17 10:54:00 CDT Start Date: 11/30/17 Stop Date: 11/30/17 Status: Completedlisinopril 40 mg, 2 tab, Route: PO, Drug form: TAB, Daily, Dosing Weight 120.545, kg, Start date: 12/01/17 9:00:00 CDT, Duration: 30 day, Stop date: 12/30/17 9:00:00 CDT Notes: (Same as: Prinivil, Zestril) Start Date: 12/01/17 Stop Date: 12/01/17 Status: Discontinuedlisinopril 40 mg oral tablet 40 mg=1 tab, PO, Daily, # 30 tab, 0 Refill(s) Start Date: 11/23/17 Status: Orderedmelatonin 3 mg, 1 tab, Route: PO, Drug form: TAB, Bedtime, Dosing Weight 120.545, kg, PRN Sleep, Start date: 11/30/17 13:19:00 CDT, Duration: 30 day, Stop date: 12/30/17 13:18:00 CDT Notes: (Same as: Melatonin) Start Date: 11/30/17 Stop Date: 12/01/17 Status: Discontinuedmeloxicam 15 mg oral tablet 15 mg=1 tab, PO, Daily, # 30 tab, 0 Refill(s) Start Date: 11/23/17 Status: Orderedmidazolam (ANES) Route: IV, Drug form: SOLN, ONCE, Stop date: 11/30/17 10:54:00 CDT Start Date: 11/30/17 Stop Date: 11/30/17 Status: Completedmorphine Sulfate 4 mg, 2 mL, Route: IVP, Drug form: INJ, Q4H, Dosing Weight 120.545, kg, PRN Pain Score 7-10, Start date: 11/30/17 13:19:00 CDT, Stop date: 12/30/17 13:18: 00 CDT Notes: (Same as:MORPhine Sulfate) Start Date: 11/30/17 Stop Date: 12/01/17 Status: DiscontinuedNorco 5/325 oral tablet 1 tab, Route: PO, Drug Form: TAB, Dosing Weight 120.545, kg, Q4H, PRN Pain Score 1-3, Start date: 11/30/17 13:19:00 CDT, Duration: 30 day, Stop date: 12/30 13:18:00 CDT Notes: (Same as: Pioneer 325/5) Do not exceed 4gm/day of acetaminophen. Start Date: 11/30/17 Stop Date: 12/01/17 Status: DiscontinuedNorco 7.5/325 oral tablet 1 tab, PO, Q6H, PRN for pain, X 10 day, # 40 tab, 0 Refill(s), given to patient Start Date: 12/01/17 Stop Date: 12/11/17 Status: OrderedNS 1,000 mL 1,000 mL, Rate: 85 ml/hr, Infuse over: 11.8 hr, Route: IV, Dosing Weight 120.545 kg, Total Volume: 1,000, Start date: 11/30/17 13:19:00 CDT, Duration: 30 day, Stop date: 12/30/17 13:18:00 CDT, 2.5, m2 Start Date: 11/30/17 Stop Date: 12/01/17 Status: Discontinuedondansetron (ANES) Route: IV, Drug form: INJ, ONCE, Stop date: 11/30/17 13:10:00 CDT Start Date: 11/30/17 Stop Date: 11/30/17 Status: Completedpolyethylene glycol 3350 17 gm, 1 pkt, Route: PO, Drug form: PWDR, ONCE, Dosing Weight 120.545, kg, PRN Constipation, Start date: 11/30/17 13:19:00 CDT Notes: Dissolve in 8 oz of water or juice.(Same as: Miralax) Start Date: 11/30/17 Stop Date: 12/01/17 Status: Discontinuedpolymyxin B sulfate + Sodium Chloride 0.9% IV 250 mL 125,000 unit, Route: IRRIG, ONCALL, Start date: 11/30/17 6:00:00 CDT, Duration: 1 doses or times, Stop date: 11/30/17 13:00:00 CDT, ABX Indication: Surgical Prophylaxis Notes: (Same as: Polymyxin B Sulfate) Start Date: 11/30/17 Stop Date: 12/01/17 Status: DiscontinuedPrevacid OTC 15 mg oral delayed release capsule 30 mg, PO, Daily, # 15 cap, 0 Refill(s) Start Date: 11/23/17 Stop Date: 12/08/17 Status: Orderedpropofol (ANES) Route: IV, Drug form: INJ, ONCE, Stop date: 11/30/17 10:54:00 CDT Start Date: 11/30/17 Stop Date: 11/30/17 Status: Completedrocuronium (ANES) Route: IV, Drug form: INJ, ONCE, Stop date: 11/30/17 10:59:00 CDT Start Date: 11/30/17 Stop Date: 11/30/17 Status: Completedropivacaine 0.5% 246.25 mg + EPINEPHrine 0.5 mg + ketOROLAC 30 mg/mL injectable solution 30 mg + cl 100 ml/hr, Route: InFILtration(local), ONCALL, Start date: 11/29/17 6:00:00 CDT , Stop date: 11/29/1812:00:00 CDT Start Date: 11/29/17 Stop Date: 12/01/17 Status: Discontinuedsuccinylcholine (ANES) Route: IV, Drug form: INJ, ONCE, Stop date: 11/30/17 10:54:00 CDT Start Date: 11/30/17 Stop Date: 11/30/17 Status: Completedtranexamic acid 1.95 gm, 3 tab, Route: PO, Drug form: TAB, ONCE, Dosing Weight 120.545, kg, Start date: 11/30/17 19:19:00 CDT, Stop date: 11/30/17 19:19:00 CDT Notes: (Same as: Lysteda) Non-Formulary Start Date: 11/30/17 Stop Date: 11/30/17 Status: Completedtranexamic acid 1.95 gm, 3 tab, Route: PO, Drug form: TAB, ONCE, Dosing Weight 121.773, kg, Start date: 11/30/17 7:05:00 CDT, Stop date: 11/30/17 7:05:00 CDT Notes: (Same as: Lysteda) Non-Formulary Start Date: 11/30/17 Stop Date: 11/30/17 Status: CompletedTylenol 650 mg, 2 tab, Route: PO, Drug form: TAB, Q6H, Dosing Weight 120.545, kg, PRN For Temp > 100.4 F,Start date: 11/30/17 13:19:00 CDT, Duration: 30 day, Stop date: 12/30/17 13:18:00 CDT Notes: Do not exceed 4 gm/day. (Same as: Tylenol) Start Date: 11/30/17 Stop Date: 12/01/17 Status: Discontinuedvancomycin + Sodium Chloride 0.9% IV 250 mL 500 mg, Route: IRRIG, ONCALL, Start date: 11/30/17 6:00:00 CDT, Duration: 1 doses or times, Stop date: 11/30/17 13:00:00 CDT, ABX Indication: Surgical Prophylaxis Notes: TIME CRITICAL MEDICATION(Same As: Vancocin)For adult patients only: Round to nearest 250 mg per Medical Staff approval Start Date: 11/30/17 Stop Date: 12/01/17 Status: DiscontinuedZofran 4 mg, 1 tab, Route: PO, Drug form: TABDIS, Q8H, Dosing Weight 120.545, kg, Start date: 12/01/17 0:00:00 CDT, Duration: 3 doses or times, Stop date: 16:00:00 CDT Notes: (Same as: Zofran ODT) Start Date: 12/01/17 Stop Date: 12/01/17 Status: DiscontinuedZofran ODT 4 mg, 1 tab, Route: PO, Drug form: TABDIS, ONCE, PRN Nausea & Vomiting, Start date: 11/30/17 9:02:00 CDT Notes: (Same as: Zofran ODT) Start Date: 11/30/17 Stop Date: 12/01/17 Status: DiscontinuedZofran ODT 4 mg, 1 tab, Route: PO, Drug form: TABDIS, ONCE, Dosing Weight 121.773, kg, Start date: 11/30/17 7:04:00 CDT, Stop date: 11/30/17 7:04:00 CDT Notes: (Same as: Ana Rosa MARSHALL) Start Date: 11/30/17 Stop Date: 11/30/17 Status: Completed Results BLOOD BANK RESULTS Most recent to oldest [Reference Range]: 1 2 ABO/Rh A NEG *Unknown* (11/24/17 12:30 PM) Antibody Scrn Negative (11/24/17 12:30 PM) ELECTROLYTES Most recent to oldest [Reference Range]: 1 2 Sodium Lvl [135-145 mEq/L] 136 mEq/L 137 mEq/L (12/01/17 4:10 AM) (11/24/17 12:30 PM) Potassium Lvl [3.5-5.1 mEq/L] 3.8 mEq/L 3.6 mEq/L (12/01/17 4:10 AM) (11/24/17 12:30 PM) Chloride Lvl [95-109 mEq/L] 101 mEq/L 99 mEq/L (12/01/17 4:10 AM) (11/24/17 12:30 PM) CO2 [24-32 mEq/L] 28 mEq/L 31 mEq/L (12/01/17 4:10 AM) (11/24/17 12:30 PM) AGAP [10.0-20.0 mEq/L] 10.8 mEq/L 10.6 mEq/L (12/01/17 4:10 AM) (11/24/17 12:30 PM) CHEM PANEL Most recent to oldest [Reference Range]: 1 2 Creatinine Lvl [0.50-1.40 mg/dL] 0.86 mg/dL 0.91 mg/dL (12/01/17 4:10 AM) (11/24/17 12:30 PM) eGFR 108 mL/min/1.73m2 1 104 mL/min/1.73m2 2 *NA* *NA* (12/01/17 4:10 AM) (11/24/17 12:30 PM) BUN [7-22 mg/dL] 12 mg/dL 8 mg/dL (12/01/17 4:10 AM) (11/24/17 12:30 PM) B/C Ratio [6-25] 14 9 (6/15/18 4:10 AM) (11/24/17 12:30 PM) Glucose Lvl [70-99 mg/dL] 126 mg/dL 96 mg/dL *HI* (11/24/17 12:30 PM) (12/01/17 4:10 AM) Total Protein [6.4-8.4 g/dL] 6.2 g/dL 7.4 g/dL *LOW* (11/24/17 12:30 PM) (12/01/17 4:10 AM) Albumin Lvl [3.5-5.0 g/dL] 3.4 g/dL 4.5 g/dL *LOW* (11/24/17 12:30 PM) (12/01/17 4:10 AM) Globulin [2.7-4.2 g/dL] 2.8 g/dL 2.9 g/dL (12/01/17 4:10 AM) (11/24/17 12:30 PM) A/G Ratio [0.7-1.6] 1.2 1.6 (12/01/17 4:10 AM) (11/24/17 12:30 PM) Calcium Lvl [8.5-10.5 mg/dL] 7.8 mg/dL 9.0 mg/dL *LOW* (11/24/17 12:30 PM) (12/01/17 4:10 AM) ALT [0-65 unit/L] 63 unit/L 59 unit/L (12/01/17 4:10 AM) (11/24/17 12:30 PM) AST [0-37 unit/L] 38 unit/L 46 unit/L *HI* *HI* (12/01/17 4:10 AM) (11/24/17 12:30 PM) Alk Phos [39-136 unit/L] 65 unit/L 89 unit/L (12/01/17 4:10 AM) (11/24/17 12:30 PM) Bili Total [0.2-1.3 mg/dL] 0.6 mg/dL 0.7 mg/dL (12/01/17 4:10 AM) (11/24/17 12:30 PM) 1Result Comment: The eGFR is calculated using the CKD-EPI formula. In most young , healthy individualsthe eGFR will be >90 mL/min/1.73m2. The eGFR declines with age. An eGFR of 60-89 may be normal insome populations, particularly the elderly, for whom the CKD-EPI formula has not been extensively validated. Use of the eGFR is not recommended in the following populations: Individuals with unstable creatinine concentrations, including patients and those with serious co-morbid conditions. Patients with extremes in muscle mass or diet. The data above are obtained from the National Kidney Disease Education Program ( NKDEP) which additionally recommends that when the eGFR is used in patients with extremes of body mass index for purposesof drug dosing, the eGFR should be multiplied by the estimated BMI.2Result Comment: The eGFR is calculated using the CKD-EPI formula. In most young, healthy individualsthe eGFR will be >90 mL/min/1.73m2. The eGFR declines with age. An eGFR of 60-89 may be normal insome populations, particularly the elderly, for whom the CKD-EPI formula has not been extensively validated. Use of the eGFR is not recommended in the following populations: Individuals with unstable creatinine concentrations, including patients and those with serious co-morbid conditions. Patients with extremes in muscle mass or diet. The data above are obtained from the National Kidney Disease Education Program ( NKDEP) which additionally recommends that when the eGFR is used in patients with extremes of body mass index for purposesof drug dosing, the eGFR should be multiplied by the estimated BMI.URINE CHEM Most recent to oldest [Reference Range]: 1 2 U Cotinine Lvl [Negative] Negative *NA* (11/24/17 12:30 PM) URINE AND STOOL Most recent to oldest [Reference Range]: 1 2 UA Turbidity [Clear] Clear (11/24/17 12:12 PM) UA Color [Yellow] Yellow *NA* (11/24/17 12:12 PM) UA pH [5.0-8.0] 7.0 (11/24/17 12:12 PM) UA Spec Grav [<=1.030] <=1.005 *NA* (11/24/17 12:12 PM) UA Glucose [Negative] Negative (11/24/17 12:12 PM) UA Blood [Negative] Negative (11/24/17 12:12 PM) UA Ketones [Negative] Negative *NA* (11/24/17 12:12 PM) UA Protein [Negative] Negative (11/24/17 12:12 PM) UA Urobilinogen [0.1-1.0 EU/dL] 1.0 EU/dL (11/24/17 12:12 PM) UA Bili [Negative] Negative *NA* (11/24/17 12:12 PM) UA Leuk Est [Negative] Negative (11/24/17 12:12 PM) UA Nitrite [Negative] Negative (11/24/17 12:12 PM) UA WBC [None Seen /HPF] 0-2 /HPF (11/24/17 12:12 PM) UA RBC [0-2 /HPF] 0-2 /HPF (11/24/17 12:12 PM) UA Bacteria [None Seen /HPF] Occasional /HPF (11/24/17 12:12 PM) UA Sq Epi [Few] None Seen (11/24/17 12:12 PM) HEMATOLOGY Most recent to oldest [Reference Range]: 1 2 WBC [3.7-10.4 K/CMM] 5.5 K/CMM (11/24/17 12:30 PM) RBC [4.70-6.10 M/CMM] 4.66 M/CMM *LOW* (11/24/17 12:30 PM) Hgb [14.0-18.0 g/dL] 10.9 g/dL 14.3 g/dL *LOW* (11/24/17 12:30 PM) (12/01/17 4:10 AM) Hct [42.0-54.0 %] 31.9 % 42.2 % *LOW* (11/24/17 12:30 PM) (12/01/17 4:10 AM) MCV [80.0-94.0 fL] 90.5 fL (11/24/17 12:30 PM) MCH [27.0-31.0 pg] 30.6 pg (11/24/17 12:30 PM) MCHC [32.0-36.0 g/dL] 33.8 g/dL (11/24/17 12:30 PM) RDW [11.5-14.5 %] 12.8 % (11/24/17 12:30 PM) MPV [7.4-10.4 fL] 8.8 fL (11/24/17 12:30 PM) Platelet [133-450 K/CMM] 148 K/CMM (11/24/17 12:30 PM) Segs [45.0-75.0 %] 70.4 % (11/24/17 12:30 PM) Lymphocytes [20.0-40.0 %] 19.4 % *LOW* (11/24/17 12:30 PM) Monocytes [2.0-12.0 %] 8.1 % (11/24/17 12:30 PM) Eosinophils [0.0-4.0 %] 1.4 % (11/24/17 12:30 PM) Basophils [0.0-1.0 %] 0.7 % (11/24/17 12:30 PM) Segs-Bands # [1.5-8.1 K/CMM] 3.9 K/CMM (11/24/17 12:30 PM) Lymphocytes # [1.0-5.5 K/CMM] 1.1 K/CMM (11/24/17 12:30 PM) Monocytes # [0.0-0.8 K/CMM] 0.4 K/CMM (11/24/17 12:30 PM) Eosinophils # [0.0-0.5 K/CMM] 0.1 K/CMM (11/24/17 12:30 PM) PT [12.0-14.7 seconds] 13.2 seconds (11/24/17 12:30 PM) INR [0.85-1.17] 1.00 (11/24/17 12:30 PM) PTT [22.9-35.8 seconds] 28.9 seconds (11/24/17 12:30 PM) Immunizations No data available for this section Procedures Procedure Date Related Diagnosis Body Site Status Lumbar discectomy 2010 Completed Social History Social History Type Response Smoking Status Current some day smoker; Type: Cigarettes; Exposure to Tobacco Smoke None; Cigarette Smoking Last 365 Days Yes; Reg Smoking Cessation Counseling Yes1 entered on: 11/30/17 1STATES HE ONLY SMOKES "SOCIALLY" AND HAS NOT SMOKED IN 7-8 MONTHS Assessment and Plan Extracted from: Title: Discharge Summary Author: Dandre Stout MD Date: 12/01/17 Discharge Summary Admission date: 11/30/17 Discharge date:12/01/17 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 Patient underwent the operative procedure of a RTHA. Patient was monitored by the internal medicine servic e and remained stable throughout the post operative course. Patient's H&H on the first postoperative day was 10.9/31.9. Patient was seen by physical therapy twice daily and was ambulating well with a walker prior to discharge. ROM goals achieved. Patient was cleared for discharge on 12/01/17. Hospital course was uneventful. Diet: regular Meds: please see med reconciliation list Activity: WBAT, walker transition to cane, posterior hip precautions Follow up: follow up in [address] Stout Extracted from: Title: Orthopedic progress note Author: Coreen Erickson NP Date: 12/01/17 Progress Daily [facility] Completed: Monday, 12:32 by Coreen Erickson NP RM: 325 - 00, HY 3OSH OFELIA , MCKENNA LEWIS 42y (: 1975) Attending: Dandre Stout MD Service: Orthopedic Reason for Admission: AVASCULAR NECROSIS, RIGHT HIP Working DRG: Code status: None Specified=FULL CODE Isolation: No Isolation/Standard Precautions Allergies: NKDA SUBJECTIVE Pain well controlled. No overnight issues. Denies sob/n/v. Reports feeling well and is able to ambulate and work with PT. ASSESSMENT & EXAM Gen: A & O x4, no acute distress Card:pulses palpable, calves soft nontender, good capillary refill Resp:respirations regular and unlabored Musc: Right hip mild swelling, compressible, moderate tenderness, good stability, ROM progressing, EHL/FHL/TA intact Neuro:N/V and sensation intact Skin: dressing intact, HV d/c'd, mild ecchymosis present, no s/s infection PLAN & TREATMENT -FWBAT, posterior hip precautions -transition walker to cane as tolerated -continue PT and HEP education given -continue DVT prophylaxis ASA, SCD, MORGAN, ambulation -continue pain management -continue dressing, changed dressing since was peeling up and applied new silver dressing, may change drain site as needed with gauze and tegaderm -reinforced importance of no alcohol during post op perior and to increase protein intake -hospitalist consult for medical management -case management consult for discharge planning -plan for possible d/c home after second PT if meeting PT goals, follow up in 2 weeks DIAGNOSES & PROBLEMS s/p RTHA for Right hip DJD and AVN Ready for Discharge (Yes/No)? this PM 12hr drain output 30 cc 24hr Labs 12/01 0410 Sodium Lvl 136 Potassium Lvl 3.8 Chloride Lvl 101 CO2 28 AGAP 10.8 Glucose Lvl 126 H Creatinine Lvl 0.86 BUN 12 B/C Ratio 14 Total Protein 6.2 L Albumin Lvl 3.4 L Globulin 2.8 A/G Ratio 1.2 Calcium Lvl 7.8 L ALT 63 AST 38 H Alk Phos 65 Bili Total 0.6 eGFR 108 Hgb 10.9 L Hct 31.9 L Vitals Tmp(F) Pulse BP RR SpO2 FIO2 12/01 11:20 98.1 87 118/85 18 96 --- 12/01 10:55 ---- 89 114/75 -- --- --- 12/01 09:36 ---- 86 129/86 18 --- --- 12/01 08:00 98.1 90 129/87 18 98 --- 12/01 07:40 ---- --- ----- -- 98 --- 24 Hr Tmax: 98.5F (36.94c) at 11/30 14:35 Vital Signs are the last 5 in the past 48 hours. Date Wt(kg) Wt(lb) Ht(cm) Ht(in) Method 11/30 120.55 265.20 Measured 11/23 182.88 72.00 11/30 (initial) 120.55 265.20 Measured 11/23 182.88 72.00 Stated I&O Record In Out Bal 12/01 24hr Tot 352 500 -148 11/30 24hr Tot 3240 1950 1290 Medications (37) Active Scheduled Meds (7): 12/01/17 amLODIPine 10 mg PO Daily 12/01/17 aspirin (aspirin 325 mg tablet, enteric coated) 325 mg PO Q12H 12/01/17 carvedilol 12.5 mg PO Daily 11/30/17 celecoxib (CeleBREX) 200 mg PO BID 11/30/17 docusate (docusate sodium) 100 mg PO BID 12/01/17 lisinopril 40 mg PO Daily 12/01/17 ondansetron (Zofran) 4 mg PO Q8H Unscheduled Meds (3): 11/30/17 polymyxin B sulfate + Sodium Chloride 0.9% IV 250 mL 125,000 unit IRRIG ONCALL 250 ml/hr 11/29/17 ropivacaine 246.25 mg + EPINEPHrine 0.5 mg + ketOROLAC 30 mg + cloNIDine 80 microgram + Sodium Chlo (ropivacaine 0.5% 246.25 mg + EPINEPHrine 0.5 mg + ketOROLAC 30 mg/mL injectable solution 30 mg + cl) 246.25 mg InFILtration(local) ONCALL 100 ml/hr 11/30/17 vancomycin + Sodium Chloride 0.9% IV 250 mL 500 mg IRRIG ONCALL 250 ml /hr PRN Meds (7): 11/30/17 acetaminophen-hydrocodone (acetaminophen-hydrocodone 325 mg-10 mg oral tablet) 1 tab PO Q4H 11/30/17 acetaminophen-hydrocodone (Pioneer 5/325 oral tablet) 1 tab PO Q4H 11/30/17 acetaminophen (Tylenol) 650 mg PO Q6H 11/30/17 diphenhydrAMINE 50 mg PO TID 11/30/17 famotidine 20 mg PO BID 11/30/17 melatonin 3 mg PO Bedtime 11/30/17 morphine Sulfate 4 mg IVP Q4H One Time Meds (19): 11/30/17 (not done) ceFAZolin + Sodium Chloride 0.9% IV 100 mL (Ancef + Sodium Chloride 0.9% IV 100 mL) 1 gm IVPB ONCE 200 ml/hr 11/30/17 (not done) ceFAZolin (Ancef) 2 gm IVPB ONCE 200 ml/hr (Completed) ceFAZolin (ceFAZolin (ANES)) IV ONCE 11/30/17 (Completed) celecoxib (CeleBREX) 400 mg PO ONCE 12/01/17 (Ordered) dexamethasone 10 mg IVP ONCE 11/30/17 (Completed) dexamethasone 10 mg IVP ONCE (Completed) dexamethasone (dexamethasone (ANES)) IV ONCE (Completed) fentaNYL (fentaNYL (ANES)) IV ONCE (Completed) fentaNYL (fentaNYL (ANES)) IV ONCE 11/30/17 (Discontinued) ketOROLAC (ANES ketOROLAC) 30 mg IVP ONCE (Completed) lidocaine (lidocaine (ANES)) IV ONCE (Completed) midazolam (midazolam (ANES)) IV ONCE 11/30/17 (Completed) ondansetron (Zofran ODT) 4 mg PO ONCE (Completed) ondansetron (ondansetron (ANES)) IV ONCE (Completed) propofol (propofol (ANES)) IV ONCE (Completed) rocuronium (rocuronium (ANES)) IV ONCE (Completed) succinylcholine (succinylcholine (ANES)) IV ONCE 11/30/17 (Completed) tranexamic acid 1.95 gm PO ONCE 11/30/17 (Completed) tranexamic acid 1.95 gm PO ONCE Continuous Infusions (1): 11/30/17 Sodium Chloride 0.9% IV 1,000 mL (NS 1,000 mL) 1,000 mL 85 ml/hr Extracted from: Title: Consult Note Author: Omi Aggiesiobhan Miller DO Date: 11/24/17 1.Preop cardiovascular exam -Type of surgery:Right total hip arthroplasty, intermediate risk -Surgery specific medical issues:Hypertension -Physical exam concerns: -Patient is able to complete greater than 4 METs without cardiovascular symptoms(stairs) -Baseline EKG reveals normal sinus rhythm -Outpatient supervisor poultry processing:None -Revised cardiac index score is 0 thus putting the patient on a 0.4% risk of major perioperative cardiac event -Patient is considered a low perioperative cardiovascular risk for this intermediate risk procedure and may proceed with no further preoperative workup -The risks and benefitsof surgery were discussed with the patient 2.Right hip pain Patient is to undergo right total hip arthroplasty by Dr. Stout on November 30, 2017,he was previously taking meloxicam for pain but has stopped 3.Avascular necrosis The patient is to undergo right total hip arthroplastyby Dr. Stout on November 30, 2017 4.GERD (gastroesophageal reflux disease) Continue Prevacid as needed 5.HTN (hypertension) The blood pressure is controlled continue amlodipine, carvediloland lisinopril, hold lisinopril in the morning answered 6.Elevated LFTs AST is slightly elevated suspect this is secondary to alcohol useas the patient hasbeen drinking more alcohol thanhe normally does, he was counseled oncutting back, this will need to be monitored [facility] [address] hospitalist is a software developer consultant, please call [phone] with questions or concerns.
[2017-12-08] MEDS ORDERED: MORPHINE 4 MG/ML SYR ONE ×2 (02:12→02:23)
[2017-12-08] MEDS ORDERED: ONDANSETRON 4 MG (ODT) TAB ONE ×2 (02:12→02:24)
--- NOTE | 2017-12-08 02:50 | EDPHYS ---
Physician Documentation [facility] Name: Terry Saenz Jr Age: 42 yrs Sex: Male : 1975 Arrival Date: 12/08/2017 Time: 00:47 Bed 16 Private MD: ED Physician Young Schroeder HPI: 12/08 02:37 This 42 yrs old Male presents to ER via EMS with complaints of Right Hip Pain.pm1 02:37 The patient or guardian reports pain, swelling. that occurred at home. Hx of AVN and pm1 patient had hip replacement surgery to right hip on 11/30/2017. Will be having left hip replaced in 2-3 weeks. Patient has run out of his pain medications and has not been ambulatory. He has not been walking around, primarily sitting and lying down since he has had the surgery. No chest pain, fever, or shortness of breath. Historical: - Allergies: 00:59 No Known Allergies; bs1 - Home Meds: 00:59 amlodipine oral [Active]; carvedilol Oral [Active]; lisinopril Oral [Active]; Logsden bs1 Oral [Active]; Celebrex Oral [Active]; Prevacid Oral [Active]; Aspirin Oral [Active]; - PMHx: 00:59 chronic back pain; Hypertension; avascular necrosis; bs1 - PSHx: 00:59 back sx; hip sx; bs1 - Immunization history:: Adult Immunizations up to date. - Social history:: Smoking status: Patient/guardian denies using tobacco. - Ebola Screening: : Patient negative for fever greater than or equal to 101.5 degrees Fahrenheit, and additional compatible Ebola Virus Disease symptoms Patient denies exposure to infectious person. ROS: 02:37 Constitutional: Negative for fever, chills, and weight loss, Eyes: Negative for injury, pm1 pain, redness, and discharge, ENT: Negative for injury, pain, and discharge, Neck: Negative for injury, pain, and swelling, Respiratory: Negative for shortness of breath, cough, wheezing, and pleuritic chest pain, Abdomen/GI: Negative for abdominal pain, nausea, vomiting, diarrhea, and constipation, Back: Negative for injury and pain. 02:37 : Negative for injury, bleeding, discharge, and swelling. 02:37 Skin: Negative for injury, rash, and discoloration, Neuro: Negative for headache, weakness, numbness, tingling, and seizure. 02:37 Cardiovascular: Positive for edema, Negative for chest pain, palpitations. 02:37 MS/extremity: Positive for pain, of the right hip. Exam: 02:37 Constitutional: This is a well developed, well nourished patient who is awake, alert, pm1 and in no acute distress. Head/Face: Normocephalic, atraumatic. Eyes: Pupils equal round and reactive to light, extra-ocular motions intact. Lids and lashes normal. Conjunctiva and sclera are non-icteric and not injected. Cornea within normal limits. Periorbital areas with no swelling, redness, or edema. ENT: Nares patent. No nasal discharge, no septal abnormalities noted. Tympanic membranes are normal and external auditory canals are clear. Oropharynx with no redness, swelling, or masses, exudates, or evidence of obstruction, uvula midline. Mucous membranes moist. Neck: Trachea midline, no thyromegaly or masses palpated, and no cervical lymphadenopathy. Supple, full range of motion without nuchal rigidity, or vertebral point tenderness. No Meningismus. Chest/axilla: Normal chest wall appearance and motion. Nontender with no deformity. No lesions are appreciated. Cardiovascular: Regular rate and rhythm with a normal S1 and S2. No gallops, murmurs, or rubs. Normal PMI, no JVD. No pulse deficits. Respiratory: Lungs have equal breath sounds bilaterally, clear to auscultation and percussion. No rales, rhonchi or wheezes noted. No increased work of breathing, no retractions or nasal flaring. Abdomen/GI: Soft, non-tender, with normal bowel sounds. No distension or tympany. No guarding or rebound. No evidence of tenderness throughout. Back: No spinal tenderness. No costovertebral tenderness. Full range of motion. Skin: Warm, dry with normal turgor. Normal color with no rashes, no lesions, and no evidence of cellulitis. 02:37 Cardiovascular: Edema: pedal edema, that is moderate, right greater than left. 02:37 Musculoskeletal/extremity: Extremities: grossly normal except: noted in the right hip: swelling, tenderness, There is no evidence of decreased ROM, ecchymosis, erythema, ROM: intact in all extremities, Circulation is intact in all extremities. Pulses: noted to be 2+ in the right dorsalis pedis artery and left dorsalis pedis artery, Sensation intact. 02:37 Neuro: Orientation: is normal, Motor: moves all fours, Sensation: is normal, no obvious gross deficits. Vital Signs: 00:55 BP 139 / 88; Pulse 102; Resp 17; Temp 98.5(O); Pulse Ox 100% on R/A; Weight 117.93 kg; bs1 Height 6 ft. (182.88 cm); Pain 10/10; 01:45 BP 142 / 88; Pulse 102; Resp 18; Pulse Ox 100% on R/A; Pain 7/10; bs1 02:45 BP 132 / 86; Pulse 102; Resp 17; Pulse Ox 99% on R/A; bs1 03:25 BP 127 / 81; Pulse 103; Resp 16 S; Temp 98; Pulse Ox 99% ; Pain 4/10; bs1 00:55 Body Mass Index 35.26 (117.93 kg, 182.88 cm) bs1 MDM: 00:48 Patient medically screened. pm1 02:48 Data reviewed: vital signs. Data interpreted: Pulse oximetry: on room air is 100 %. pm1 Interpretation: normal. Counseling: I had a detailed discussion with the patient and/or guardian regarding: radiology results, the need for outpatient follow up, for definitive care, a orthopedic surgeon, to return to the emergency department if symptoms worsen or persist or if there are any questions or concerns that arise at home. 12/08 00:57 Order name: Hip Right 2 View XRAY pm1 12/08 01:03 Order name: Extrem Venous W Compression Lg US pm1 Administered Medications: 02:33 Drug: morphine 4 mg Route: IM; Site: left deltoid; rv 03:26 Follow up: Response: No adverse reaction bs1 02:33 Drug: Zofran 4 mg Route: PO; rv 03:26 Follow up: Response: No adverse reaction bs1 03:23 Drug: Logsden 10 mg-325 mg 1 tabs Route: PO; bs1 03:26 Follow up: Response: No adverse reaction bs1 Disposition: 19:06 Co-signature as Attending Physician, Young Schroeder MD. Disposition: 12/08/17 02:50 Discharged to Home. Impression: Postoperative right hip pain, Edema, unspecified - lower extremity. - Condition is Stable. - Discharge Instructions: Edema, Total Hip Replacement, Care After. - Prescriptions for Tylenol- Codeine #3 300-30 mg Oral Tablet - take 2 tablets by ORAL route every 6 hours As needed; 20 tablet. - Medication Reconciliation Form, Thank You Letter, Prescription Opioid Use form. - Follow up: Emergency Department; When: As needed; Reason: Worsening of condition. Follow up: Private Physician; When: 2 - 3 days; Reason: Recheck today's complaints, Continuance of care, Re-evaluation by your physician. - Problem is new. - Symptoms have improved. Signatures: Dispatcher [employer] [facility] Regis Norman, ROLL FORMER ROLL FORMER pm1 Young Schroeder MD MD gs Salazar, Brittany, RN RN bs1 iRcky Medina RN RN rv Corrections: (The following items were deleted from the chart) 01:10 00:57 Extremity Venous Uni Ltd+US.RAD.BRZ ordered. [facility] 03:28 02:50 12/08/2017 02:50 Discharged to Home. Impression: Postoperative right hip pain; bs1 Edema, unspecified - lower extremity. Condition is Stable. Forms are Medication Reconciliation Form, Thank You Letter, Antibiotic Education, Prescription Opioid Use. Follow up: Emergency Department; When: As needed; Reason: Worsening of condition. Follow up: Private Physician; When: 2 - 3 days; Reason: Recheck today's complaints, Continuance of care, Re-evaluation by your physician. Problem is new. Symptoms have improved. pm1
--- NOTE | 2017-12-08 02:50 | ER ---
Nurse's Notes [facility] Name: Terry Saenz Jr Age: 42 yrs Sex: Male : 1975 Arrival Date: 12/08/2017 Time: 00:47 Bed 16 Private MD: Diagnosis: Postoperative right hip pain;Edema, unspecified-lower extremity Presentation: 12/08 00:47 Presenting complaint: EMS states: "Patient c/o right hip pain and swelling to right bs1 lower leg, reports having surgery last week in [place] and pain continue to increase.". Transition of care: patient was not received from another setting of care. Onset of symptoms was December 07, 2017. Risk Assessment: Do you want to hurt yourself or someone else? Patient reports no desire to harm self or others. Initial Sepsis Screen: Does the patient meet any 2 criteria? HR > 90 bpm. Does the patient have a suspected source of infection? No. Patient's initial sepsis screen is negative. Care prior to arrival: None. 00:47 Method Of Arrival: EMS: [facility] bs1 00:47 Acuity: SCOUT 3 bs1 Historical: - Allergies: 00:59 No Known Allergies; bs1 - Home Meds: 00:59 amlodipine oral [Active]; carvedilol Oral [Active]; lisinopril Oral [Active]; Fontana bs1 Oral [Active]; Celebrex Oral [Active]; Prevacid Oral [Active]; Aspirin Oral [Active]; - PMHx: 00:59 chronic back pain; Hypertension; avascular necrosis; bs1 - PSHx: 00:59 back sx; hip sx; bs1 - Immunization history:: Adult Immunizations up to date. - Social history:: Smoking status: Patient/guardian denies using tobacco. - Ebola Screening: : Patient negative for fever greater than or equal to 101.5 degrees Fahrenheit, and additional compatible Ebola Virus Disease symptoms Patient denies exposure to infectious person. Screenin:00 Abuse screen: Denies threats or abuse. Denies injuries from another. Nutritional bs1 screening: No deficits noted. Tuberculosis screening: No symptoms or risk factors identified. Fall Risk No fall in past 12 months (0 pts). No secondary diagnosis (0 pts). No IV (0 pts). Ambulatory Aid- Crutches/Cane/Walker (15 pts). Gait- Weak (10 pts.). Mental Status- Oriented to own ability (0 pts). Total Wells Fall Scale indicates Low Risk Score (25-44 pts). Fall prevention measures have been instituted. Placed close to Nursing Station Frequent Obs/Assesments occuring Family Present and informed to notify staff if they need to leave bedside As available Patient and Family Educated on Fall Prevention Program and strategies. Assessment: 01:04 General: Appears in no apparent distress. uncomfortable, Behavior is cooperative, bs1 anxious. Pain: Complains of pain in right hip Pain does not radiate. Neuro: Level of Consciousness is awake, alert, obeys commands. Cardiovascular: Denies chest pain, shortness of breath, Heart tones S1 S2 present Capillary refill < 3 seconds Patient's skin is warm and dry. Cardiovascular: Edema is 2+ to left ankle, left foot, right upper thigh, right ankle and right foot. Respiratory: Airway is patent Trachea midline Breath sounds are clear bilaterally. GI: No signs and/or symptoms were reported involving the gastrointestinal system. : No signs and/or symptoms were reported regarding the genitourinary system. EENT: No signs and/or symptoms were reported regarding the EENT system. Derm: Skin is intact, Skin is pink, warm \\T\\ dry. normal. Musculoskeletal: Circulation, motion, and sensation intact. Capillary refill < 3 seconds, Range of motion: limited in right hip Swelling present in right hip Reports pain in right hip. 02:33 Reassessment: Patient and/or family updated on plan of care and expected duration. Pain bs1 level reassessed. Patient is alert, oriented x 3, equal unlabored respirations, skin warm/dry/pink. C/o pain to right hip. Morphine and Zofran given. . 03:20 Reassessment: Patient appears in no apparent distress at this time. Patient and/or bs1 family updated on plan of care and expected duration. Pain level reassessed. Patient is alert, oriented x 3, equal unlabored respirations, skin warm/dry/pink. Patient requesting norco pain medication prior to discharge, informed COIN MACHINE OPERATOR Emerson. Gave verbal order to give norco 10/325 po x1. Order Received. Vital Signs: 00:55 BP 139 / 88; Pulse 102; Resp 17; Temp 98.5(O); Pulse Ox 100% on R/A; Weight 117.93 kg; bs1 Height 6 ft. (182.88 cm); Pain 10/10; 01:45 BP 142 / 88; Pulse 102; Resp 18; Pulse Ox 100% on R/A; Pain 7/10; bs1 02:45 BP 132 / 86; Pulse 102; Resp 17; Pulse Ox 99% on R/A; bs1 03:25 BP 127 / 81; Pulse 103; Resp 16 S; Temp 98; Pulse Ox 99% ; Pain 4/10; bs1 00:55 Body Mass Index 35.26 (117.93 kg, 182.88 cm) bs1 ED Course: 00:47 Patient arrived in ED. bs1 00:48 Regis Norman NP is PHCP. pm1 00:48 Young Schroeder MD is Attending Physician. pm1 00:50 Triage completed. bs1 00:56 Tiffanie Moses, DMITRI is Primary Nurse. bs1 01:01 Patient has correct armband on for positive identification. Bed in low position. Call bs1 light in reach. Side rails up X 1. Pulse ox on. NIBP on. 01:08 Patient taken to ultrasound. via stretcher. hr 01:14 Extrem Venous W Compression Lg US In Process Unspecified. EDMS 01:20 X-ray completed. Patient tolerated procedure well. kw 01:42 Hip Right 2 View XRAY In Process Unspecified. EDMS 01:52 Patient moved back from radiology. hr 02:33 Arm band placed on left wrist. bs1 03:25 No provider procedures requiring assistance completed. Patient did not have IV access bs1 during this emergency room visit. Administered Medications: 02:33 Drug: morphine 4 mg Route: IM; Site: left deltoid; rv 03:26 Follow up: Response: No adverse reaction bs1 02:33 Drug: Zofran 4 mg Route: PO; rv 03:26 Follow up: Response: No adverse reaction bs1 03:23 Drug: Fontana 10 mg-325 mg 1 tabs Route: PO; bs1 03:26 Follow up: Response: No adverse reaction bs1 Outcome: 02:50 Discharge ordered by . pm1 03:25 Discharged to home via wheelchair. bs1 03:25 Condition: stable 03:25 Discharge instructions given to patient, significant other, Instructed on discharge instructions, follow up and referral plans. medication usage, Demonstrated understanding of instructions, follow-up care, medications, Prescriptions given X 1. 03:28 Patient left the ED. bs1 Signatures: Dispatcher [employer] EDMS Jayshree Agee Kimberlee kw Marinas, Patrick, LEOLA COIN MACHINE OPERATOR pm1 Tiffanie Moses, DMITRI RN bs1 Ricky Medina RN RN rv Corrections: (The following items were deleted from the chart) 01:03 00:55 BP 139 / 88; Pulse 102bpm; Resp 17bpm; Pulse Ox 100% RA; 117.93 kg; Height 6 ft.; bs1 BMI: 35.2; Pain 10/10; bs1 03:30 03:28 Reassessment: Patient appears in no apparent distress at this time. Patient bs1 and/or family updated on plan of care and expected duration. Pain level reassessed. Patient is alert, oriented x 3, equal unlabored respirations, skin warm/dry/pink. Patient states symptoms have improved. bs1
[2017-12-08] MEDS ORDERED: HYDROCODONE/APAP 10/325 TAB ONE (03:20)
[2017-12-08 03:38] VITALS: O2SAT 99
[2017-12-08 03:39] VITALS: BP 127/81; TEMP 98
--- NOTE | 2017-12-08 09:27 | RAD REPORT ---
EXAM DESCRIPTION: VASExtrem Venous W Compress Bil12/08/2017 1:44 am CLINICAL HISTORY: Right leg pain and swelling. COMPARISON: 2010 FINDINGS: The examination is somewhat limited secondary to edema and body habitus. Right common femoral, superficial femoral, popliteal and right posterior tibial veins are compressibl e and demonstrate augmentation. Doppler demonstrates good flow. IMPRESSION: No evidence of deep venous thrombosis involving the right lower extremity.
--- NOTE | 2017-12-08 09:40 | RAD REPORT ---
EXAM DESCRIPTION: RAD - Hip Right 2 View - 12/08/2017 1:42 am CLINICAL HISTORY: Right hip pain FINDINGS: No fracture or dislocation is seen. Postsurgical changes of a right hip arthroplasty are seen. The prosthesis is in good position.
== END 2017-12-08 03:28 | disposition home or self-care (01) ==
LOC: ER 00:40
DX: T84.84XA Pain due to internal orthopedic prosthetic devices, implants and grafts, initial encounter (principal); R60.0 Localized edema; I10 Essential (primary) hypertension; Z79.82 Long term (current) use of aspirin
CPT/HCPCS: 93970; 96372; 99284

== ENCOUNTER 2019-04-13 04:28 | Inpatient (IN) | payer BC ==
[2019-04-13] MEDS ORDERED: NA CHLORIDE 0.9% 2,000 ML ONE ×2 (04:56→05:03)
[2019-04-13] MEDS ORDERED: FAMOTIDINE 20 MG/2 ML VIAL IV ONE (04:56)
[2019-04-13] MEDS ORDERED: MORPHINE 4 MG/ML SYR ONE ×2 (05:03→05:36)
[2019-04-13] MEDS ORDERED: ONDANSETRON 4 MG/2 ML VIAL ONE ×2 (05:03→05:36)
[2019-04-13 05:21] LABS: Absolute Lymphocytes (CBC) 0.7 K/uL (0.7-4.9); Basophils % 0.2 % (0-1.3); Hematocrit 42.6 % (39.6-49.0); Lymphocytes % 10.3 % (15.3-44.8); RBC Red Blood Cell Count 4.85 M/uL (4.33-5.43)
[2019-04-13 05:35] LABS: ALT/SGPT 48 U/L (12-78); AST/SGOT 41 U/L (15-37); Albumin 4.6 g/dL (3.4-5.0); Alkaline Phosphatase 95 U/L (45-117); BUN Blood Urea Nitrogen 9 mg/dL (7-18); Bicarbonate 28 mmol/L (21-32); Bilirubin Direct 0.4 mg/dL (0-0.2); Bilirubin Total 1.2 mg/dL (0.2-1.0); Glucose Level 113 mg/dL (74-106); Lipase 672 U/L (73-393); Magnesium 1.8 mg/dL (1.8-2.4); NT PRO-BNP 79 pg/mL (<125); Potassium 3.4 mmol/L (3.5-5.1); Protein, Total 8.3 g/dL (6.4-8.2); Sodium Level 131 mmol/L (136-145); Troponin (Emerg Dept Use Only) < 0.02 ng/mL (0.0-0.045)
--- NOTE | 2019-04-13 05:41 | EDPHYS ---
Physician Documentation [facility] Name: Terry Saenz Jr Age: 44 yrs Sex: Male : 1975 Arrival Date: 04/13/2019 Time: 04:31 Bed 7 Private MD: MARBIN Physician Artemio Bojorquez HPI: 04/13 05:04 This 44 yrs old Male presents to ER via Wheelchair with complaints of hortencia Abdominal Pain. 05:04 The patient presents with abdominal pain in the epigastric area, in the upper abdomen. hortencia Onset: The symptoms/episode began/occurred 2 day(s) ago. The patient presents to the emergency department with nausea, vomiting, that is intermittent, abdominal pain, of the epigastric area, right upper quadrant and left upper quadrant. Onset: The symptoms/episode began/occurred 2 day(s) ago. Possible causes: unknown. The symptoms are aggravated by movement, pressure, food , alcohol, The symptoms are alleviated by nothing. remaining still. Associated signs and symptoms: The patient has no apparent associated signs or symptoms. Associated signs and symptoms: none. Historical: - Allergies: 04:45 No Known Allergies; jd3 - Home Meds: 04:45 amlodipine oral [Active]; lisinopril Oral [Active]; Prevacid Oral [Active]; carvedilol jd3 Oral [Active]; - PMHx: 04:45 chronic back pain; Hypertension; avascular necrosis; jd3 - PSHx: 04:45 back; hip; jd3 - Immunization history:: Adult Immunizations up to date. - Social history:: Smoking status: Patient/guardian denies using tobacco, but has a distant history of tobacco abuse. - Ebola Screening: : Patient negative for fever greater than or equal to 101.5 degrees Fahrenheit, and additional compatible Ebola Virus Disease symptoms. - Family history:: not pertinent. ROS: 05:04 Constitutional: Negative for fever, chills, and weight loss, Eyes: Negative for injury, hortencia pain, redness, and discharge, ENT: Negative for injury, pain, and discharge, Neck: Negative for injury, pain, and swelling, Cardiovascular: Negative for chest pain, palpitations, and edema, Respiratory: Negative for shortness of breath, cough, wheezing, and pleuritic chest pain, Back: Negative for injury and pain. Exam: 05:07 Constitutional: This is a well developed, well nourished patient who is awake, alert, hortencia and in no acute distress. Head/Face: Normocephalic, atraumatic. Eyes: Pupils equal round and reactive to light, extra-ocular motions intact. Lids and lashes normal. Conjunctiva and sclera are non-icteric and not injected. Cornea within normal limits. Periorbital areas with no swelling, redness, or edema. ENT: Nares patent. No nasal discharge, no septal abnormalities noted. Tympanic membranes are normal and external auditory canals are clear. Oropharynx with no redness, swelling, or masses, exudates, or evidence of obstruction, uvula midline. Mucous membranes moist. Neck: Trachea midline, no thyromegaly or masses palpated, and no cervical lymphadenopathy. Supple, full range of motion without nuchal rigidity, or vertebral point tenderness. No Meningismus. Chest/axilla: Normal chest wall appearance and motion. Nontender with no deformity. No lesions are appreciated. Respiratory: Lungs have equal breath sounds bilaterally, clear to auscultation and percussion. No rales, rhonchi or wheezes noted. No increased work of breathing, no retractions or nasal flaring. Back: No spinal tenderness. No costovertebral tenderness. Full range of motion. Male : Normal genitalia with no discharge or lesions. Skin: Warm, dry with normal turgor. Normal color with no rashes, no lesions, and no evidence of cellulitis. MS/ Extremity: Pulses equal, no cyanosis. Neurovascular intact. Full, normal range of motion. Neuro: Awake and alert, GCS 15, oriented to person, place, time, and situation. Cranial nerves II-XII grossly intact. Motor strength 5/5 in all extremities. Sensory grossly intact. Cerebellar exam normal. Normal gait. Psych: Awake, alert, with orientation to person, place and time. Behavior, mood, and affect are within normal limits. 05:07 Cardiovascular: Rate: tachycardic, Rhythm: regular, Pulses: Pulses are 4+ in bilateral radial, brachial, femoral, popliteal, posterior tibial and and dorsalis pedis arteries.. 05:07 Respiratory: Exam negative for 05:07 Abdomen/GI: Inspection: abdomen appears normal, Bowel sounds: normal, Palpation: moderate abdominal tenderness, in the epigastric area, right upper quadrant and left upper quadrant, Liver: no appreciated palpable abnormalities, Hernia: not appreciated. Vital Signs: 04:45 BP 160 / 103; Pulse 102; Resp 17 S; Temp 97.9(O); Pulse Ox 99% on R/A; Weight 113.4 kg jd3 (R); Height 6 ft. 0 in. (182.88 cm) (R); Pain 10/10; 06:09 BP 156 / 107; Pulse 82; Resp 17 S; Pulse Ox 96% on R/A; jd3 04:45 Body Mass Index 33.91 (113.40 kg, 182.88 cm) jd3 MDM: 04:52 Patient medically screened. [facility] 05:08 Data reviewed: vital signs, nurses notes, lab test result(s), EKG, radiologic studies, [facility] CT scan, plain films. 04/13 05:04 Order name: Basic Metabolic Panel; Complete Time: 05:36 EDMS 04/13 05:04 Order name: Liver (Hepatic) Function; Complete Time: 05:36 EDMS 04/13 05:04 Order name: Troponin (Emerg Dept Use Only); Complete Time: 05:36 EDMS 04/13 05:04 Order name: NT PRO-BNP; Complete Time: 05:36 EDMS 04/13 05:04 Order name: Magnesium; Complete Time: 05:36 EDMS 04/13 05:04 Order name: Lipase; Complete Time: 05:36 EDMS 04/13 05:06 Order name: Creatinine (Radiology Only); Complete Time: 05:36 EDMS 04/13 05:06 Order name: CBC with Automated Diff; Complete Time: 05:36 EDMS 04/13 05:06 Order name: Protime (+INR); Complete Time: 05:36 EDMS 04/13 05:06 Order name: Abdomen EDMS 04/13 05:09 Order name: Chest Single View EDMS 04/13 06:03 Order name: Comprehensive Metabolic Panel EDFL 04/13 06:03 Order name: Comprehensive Metabolic Panel EDMS 04/13 06:04 Order name: CBC with Automated Diff EDMS 04/13 06:04 Order name: CBC with Automated Diff EDMS 04/13 06:04 Order name: Lipase EDMS 04/13 06:04 Order name: Lipase EDMS 04/13 06:04 Order name: Lipid Profile EDFL 04/13 06:04 Order name: Lipid Profile [facility] 04/13 04:41 Order name: IV Saline Lock; Complete Time: 04:48 [facility] 04/13 04:41 Order name: Labs collected and sent; Complete Time: 04:48 [facility] 04/13 04:54 Order name: EKG; Complete Time: 05:31 [facility] 04/13 04:54 Order name: Cardiac monitoring; Complete Time: 05:17 [facility] 04/13 04:54 Order name: EKG - Nurse/Tech; Complete Time: 05:17 [facility] 04/13 04:54 Order name: O2 Per Protocol; Complete Time: 04:58 [facility] 04/13 04:54 Order name: O2 Sat Monitoring; Complete Time: 04:58 [facility] 04/13 06:04 Order name: CONS Pharmacy Consult [facility] 04/13 06:04 Order name: NPO [facility] Administered Medications: 05:15 Drug: Pepcid 20 mg Route: IVP; Site: right antecubital; jd3 06:15 Follow up: Response: No adverse reaction jd3 05:16 Drug: NS 0.9% 1000 ml Route: IV; Rate: 1 bolus; Site: right antecubital; jd3 06:32 Follow up: Response: No adverse reaction; IV Status: Completed infusion; IV Intake: jd3 1000ml 05:16 Drug: NS 0.9% 1000 ml Route: IV; Rate: 1 bolus; Site: right antecubital; jd3 06:32 Follow up: Response: No adverse reaction; IV Status: Completed infusion; IV Intake: jd3 1000ml 05:16 Drug: NS 0.9% 1000 ml Route: IV; Rate: 1 bolus; Site: right antecubital; jd3 06:33 Follow up: IV Status: Infusion continued upon admission jd3 05:16 Drug: NS 0.9% 1000 ml Route: IV; Rate: 125 ml/hr; Site: right antecubital; jd3 06:33 Follow up: Response: No adverse reaction; IV Status: Infusion continued upon admission jd3 05:16 Drug: morphine 4 mg Route: IVP; Site: right antecubital; jd3 05:35 Follow up: Response: No adverse reaction; Pain is unchanged, physician notified jd3 05:16 Drug: Zofran 4 mg Route: IVP; Site: right antecubital; jd3 05:35 Follow up: Response: No adverse reaction jd3 05:42 Not Given (Duplicate Order): morphine 4 mg IVP once; RASS on ADMIN: Combtv4, Very jd3 Agttd3, Agttd2, Rstlss1, AlertClm0, Drwsy-1, Lt Sdtn-2, Mod Sdtn-3, Dp Sdtn-4, UnArsble-5 05:42 Not Given (Duplicate Order): Zofran 4 mg IVP once; over 2 minutes jd3 05:43 Drug: morphine 4 mg Route: IVP; Site: right antecubital; jd3 06:33 Follow up: Response: No adverse reaction; RASS: Alert and Calm (0) jd3 05:43 Drug: Zofran 4 mg Route: IVP; Site: right antecubital; jd3 06:34 Follow up: Response: No adverse reaction jd3 06:07 Drug: Dilaudid 1 mg Route: IVP; Site: right antecubital; jd3 06:34 Follow up: Response: No adverse reaction; RASS: Alert and Calm (0) jd3 06:08 Drug: Potassium Chloride 20 mEq Route: IV; Rate: per protocol; Site: right antecubital; jd3 06:34 Follow up: Response: No adverse reaction; IV Status: Infusion continued upon admission jd3 Disposition: 04/13/19 05:40 Hospitalization ordered by Pattie Aggarwal for Inpatient Admission. Preliminary diagnosis are Abdominal tenderness, Vomiting, Acute pancreatitis, Hypokalemia. - Bed requested for Telemetry/MedSurg (Inpatient). - Status is Inpatient Admission. jd3 - Condition is Fair. - Problem is new. - Symptoms have improved. UTI on Admission? No Signatures: Dispatcher [employer] EDMS Nichol Reynoso RN RN mw Anderson, Corey, MD MD cha Davies, Jonathon, RN RN jd3 Corrections: (The following items were deleted from the chart) 05:35 05:31 Abdomen Pelvis W Con+CT.RAD.BRZ ordered. EDMS EDMS 05:39 05:31 PROTIME (+INR)+COAG.LAB.BRZ ordered. EDMS EDMS 05:40 05:31 BASIC METABOLIC PANEL+C.LAB.BRZ ordered. EDMS EDMS 05:40 05:31 CBC+H.LAB.BRZ ordered. [facility] EDFL 05:40 05:31 Creatinine for Radiology+C.LAB.BRZ ordered. [facility] EDFL 05:40 05:31 HEPATIC FUNCTION+C.LAB.BRZ ordered. EDFL EDFL 05:40 05:31 LIPASE+C.LAB.BRZ ordered. EDFL EDFL 05:40 05:31 MAGNESIUM+C.LAB.BRZ ordered. [facility] EDFL 05:40 05:31 PROBNP+C.LAB.BRZ ordered. [facility] EDFL 05:40 05:31 TROPONIN (EMERG DEPT USE ONLY)+C.LAB.BRZ ordered. [facility] EDFL 05:41 05:40 Hospitalization Ordered by Pattie Aggarwal MD for Inpatient Admission. Preliminary hortencia diagnosis is Abdominal tenderness; Vomiting; Acute pancreatitis. Bed requested for Telemetry/MedSurg (Inpatient). Status is Inpatient Admission. Condition is Fair. Problem is new. Symptoms have improved. UTI on Admission? No. hortencai 06:07 05:41 04/13/2019 05:40 Hospitalization Ordered by Pattie Aggarwal MD for Inpatient mw Admission. Preliminary diagnosis is Abdominal tenderness; Vomiting; Acute pancreatitis; Hypokalemia. Bed requested for Telemetry/MedSurg (Inpatient). Status is Inpatient Admission. Condition is Fair. Problem is new. Symptoms have improved. UTI on Admission? No. hortencia 06:21 05:31 Chest Single View+RAD.RAD.BRZ ordered. [facility] EDFL 06:38 06:07 04/13/2019 05:40 Hospitalization Ordered by Pattie Aggarwal MD for Inpatient jd3 Admission. Preliminary diagnosis is Abdominal tenderness; Vomiting; Acute pancreatitis; Hypokalemia. Bed requested for Telemetry/MedSurg (Inpatient). Status is Inpatient Admission. Condition is Fair. Problem is new. Symptoms have improved. UTI on Admission? No. mw
--- NOTE | 2019-04-13 05:41 | ER ---
Nurse's Notes [facility] Name: Terry Saenz Jr Age: 44 yrs Sex: Male : 1975 Arrival Date: 04/13/2019 Time: 04:31 Bed 7 Private MD: Diagnosis: Abdominal tenderness;Vomiting;Acute pancreatitis;Hypokalemia Presentation: 04/13 04:41 Presenting complaint: Patient states: "I have had pancreatitis before and it feels like jd3 that. it has been years since I had it though so I don't know what could be causing it.". Transition of care: patient was not received from another setting of care. Onset of symptoms was April 13, 2019. Risk Assessment: Do you want to hurt yourself or someone else? Patient reports no desire to harm self or others. Initial Sepsis Screen: Does the patient meet any 2 criteria? No. Patient's initial sepsis screen is negative. Does the patient have a suspected source of infection? No. Patient's initial sepsis screen is negative. Care prior to arrival: None. 04:41 Method Of Arrival: Wheelchair jd3 04:41 Acuity: SCOUT 3 jd3 Historical: - Allergies: 04:45 No Known Allergies; jd3 - Home Meds: 04:45 amlodipine oral [Active]; lisinopril Oral [Active]; Prevacid Oral [Active]; carvedilol jd3 Oral [Active]; - PMHx: 04:45 chronic back pain; Hypertension; avascular necrosis; jd3 - PSHx: 04:45 back; hip; jd3 - Immunization history:: Adult Immunizations up to date. - Social history:: Smoking status: Patient/guardian denies using tobacco, but has a distant history of tobacco abuse. - Ebola Screening: : Patient negative for fever greater than or equal to 101.5 degrees Fahrenheit, and additional compatible Ebola Virus Disease symptoms. - Family history:: not pertinent. Screenin:48 Abuse screen: Denies threats or abuse. Nutritional screening: No deficits noted. jd3 Tuberculosis screening: No symptoms or risk factors identified. Fall Risk Ambulatory Aid- None/Bed Rest/Nurse Assist (0 pts). Gait- Normal/Bed Rest/Wheelchair (0 pts) Mental Status- Oriented to own ability (0 pts). Total Wells Fall Scale indicates No Risk (0-24 pts). Assessment: 04:46 General: Appears in no apparent distress. uncomfortable, Behavior is calm, cooperative, jd3 appropriate for age. Pain: Complains of pain in right upper quadrant and left upper quadrant Pain does not radiate. Quality of pain is described as sharp, tender, Is continuous. Neuro: Level of Consciousness is awake, alert, obeys commands, Oriented to person, place, time, situation. Cardiovascular: Denies chest pain, Capillary refill < 3 seconds Patient's skin is warm and dry. Respiratory: Airway is patent Respiratory effort is even, unlabored, Respiratory pattern is regular, symmetrical, Denies cough, shortness of breath. GI: Abdomen is round non-distended, Bowel sounds present X 4 quads. Abd is soft X 4 quads Abdomen is tender to palpation in right upper quadrant and left upper quadrant Reports upper abdominal pain, nausea, vomiting, Patient currently denies diarrhea. : No signs and/or symptoms were reported regarding the genitourinary system. EENT: No signs and/or symptoms were reported regarding the EENT system. Derm: Skin is intact, Skin is dry, Skin is normal, Skin temperature is warm. Musculoskeletal: Circulation, motion, and sensation intact. Range of motion: intact in all extremities. Vital Signs: 04:45 BP 160 / 103; Pulse 102; Resp 17 S; Temp 97.9(O); Pulse Ox 99% on R/A; Weight 113.4 kg jd3 (R); Height 6 ft. 0 in. (182.88 cm) (R); Pain 10/10; 06:09 BP 156 / 107; Pulse 82; Resp 17 S; Pulse Ox 96% on R/A; jd3 04:45 Body Mass Index 33.91 (113.40 kg, 182.88 cm) jd3 ED Course: 04:31 Patient arrived in ED. ag3 04:41 Robel Sands, RN is Primary Nurse. jd3 04:43 Triage completed. jd3 04:43 Initial lab(s) drawn, by me, sent to lab. Inserted saline lock: 20 gauge in right jb4 antecubital area, using aseptic technique. Blood collected. 04:46 Arm band placed on. jd3 04:48 Patient has correct armband on for positive identification. Placed in gown. Bed in low jd3 position. Call light in reach. Side rails up X 1. Adult w/ patient. 04:52 Artemio Bojorquez MD is Attending Physician. hortencia 05:12 Chest Single View In Process Unspecified. EDMS 05:38 Pattie Aggarwal MD is Hospitalizing Provider. hortencia 06:06 Abdomen In Process Unspecified. EDMS 06:31 No provider procedures requiring assistance completed. Patient admitted, IV remains in jd3 place. Administered Medications: 05:15 Drug: Pepcid 20 mg Route: IVP; Site: right antecubital; jd3 06:15 Follow up: Response: No adverse reaction jd3 05:16 Drug: NS 0.9% 1000 ml Route: IV; Rate: 1 bolus; Site: right antecubital; jd3 06:32 Follow up: Response: No adverse reaction; IV Status: Completed infusion; IV Intake: jd3 1000ml 05:16 Drug: NS 0.9% 1000 ml Route: IV; Rate: 1 bolus; Site: right antecubital; jd3 06:32 Follow up: Response: No adverse reaction; IV Status: Completed infusion; IV Intake: jd3 1000ml 05:16 Drug: NS 0.9% 1000 ml Route: IV; Rate: 1 bolus; Site: right antecubital; jd3 06:33 Follow up: IV Status: Infusion continued upon admission jd3 05:16 Drug: NS 0.9% 1000 ml Route: IV; Rate: 125 ml/hr; Site: right antecubital; jd3 06:33 Follow up: Response: No adverse reaction; IV Status: Infusion continued upon admission jd3 05:16 Drug: morphine 4 mg Route: IVP; Site: right antecubital; jd3 05:35 Follow up: Response: No adverse reaction; Pain is unchanged, physician notified jd3 05:16 Drug: Zofran 4 mg Route: IVP; Site: right antecubital; jd3 05:35 Follow up: Response: No adverse reaction jd3 05:42 Not Given (Duplicate Order): morphine 4 mg IVP once; RASS on ADMIN: Combtv4, Very jd3 Agttd3, Agttd2, Rstlss1, AlertClm0, Drwsy-1, Lt Sdtn-2, Mod Sdtn-3, Dp Sdtn-4, UnArsble-5 05:42 Not Given (Duplicate Order): Zofran 4 mg IVP once; over 2 minutes jd3 05:43 Drug: morphine 4 mg Route: IVP; Site: right antecubital; jd3 06:33 Follow up: Response: No adverse reaction; RASS: Alert and Calm (0) jd3 05:43 Drug: Zofran 4 mg Route: IVP; Site: right antecubital; jd3 06:34 Follow up: Response: No adverse reaction jd3 06:07 Drug: Dilaudid 1 mg Route: IVP; Site: right antecubital; jd3 06:34 Follow up: Response: No adverse reaction; RASS: Alert and Calm (0) jd3 06:08 Drug: Potassium Chloride 20 mEq Route: IV; Rate: per protocol; Site: right antecubital; jd3 06:34 Follow up: Response: No adverse reaction; IV Status: Infusion continued upon admission jd3 Intake: 06:32 IV: 1000ml; Total: 1000ml. jd3 06:32 IV: 1000ml; Total: 2000ml. jd3 Outcome: 05:40 Decision to Hospitalize by Provider. hortencia 06:31 Admitted to Med/surg accompanied by nurse, via wheelchair, room 415, with chart, Report jd3 called to Billy RIZVI 06:31 Condition: stable 06:31 Instructed on the need for admit, Demonstrated understanding of instructions. 06:38 Patient left the ED. jd3 Signatures: Dispatcher [employer] EDArtemio Patel MD MD cha Bryson, James RN RN jb4 Robel Sands RN RN jd3 Mary Hernandez3 Corrections: (The following items were deleted from the chart) 06:35 06:31 Admitted to Med/surg accompanied by nurse, via wheelchair, room 415, jd3 jd3
[2019-04-13] MEDS ORDERED: KCL 20 MEQ/100 mL IVPB 20 MEQ/100 ML BAG IV ONE (05:50)
[2019-04-13] MEDS ORDERED: ONDANSETRON 4 MG/2 ML VIAL IV PRN ×3 (06:01→15:19)
[2019-04-13] MEDS ORDERED: HYDROMORPHONE HCL 1 MG/ML INJ ONE (06:01)
[2019-04-13] MEDS: NA CHLORIDE 0.9% 1,000 ML IV SCH ×3 (07:00→21:08)
--- NOTE | 2019-04-13 07:12 | P.HP ---
Certification for Inpatient Patient admitted to: Inpatient With expected LOS: >2 Midnights Patient will require the following post-hospital care: None Practitioner: I am a practitioner with admitting privileges, knowledge of patient current condition, hospital course, and medical plan of care. Services: Services provided to patient in accordance with Admission requirements found in Title 42 Section 412.3 of the Code of Federal Regulations Patient History Date of Service: 04/13/19 Reason for admission: Acute pancreatitis secondary to alcoholism History of Present Illness: Patient is a 44-year-old gentleman who presents to the hospital with abdominal pain. This is been going on for the last 2 days. He has been having some nausea and vomiting. Patient was diagnosed with pancreatitis on 3 separate occasions in the past. He has never been told that he has gallstones. These are more likely related to alcohol use. He used to drink more heavily. Currently, he only drinks about a six-pack daily. He does this when he gets also work. He has lost some weight in the last few months. His pain started 2 days ago after he had a 6 pack to drink. The pain continued to progress and he came into the hospital. His lipase was significantly elevated. CT of the abdomen and pelvis is pending. Allergies No Known Drug Allergies Allergy (Unverified 11/23/14 06:20) Unknown No Known Allergies Allergy (Uncoded 04/05/17 07:06) Unknown - Past Medical/Surgical History -: Pancreatitis -: Alcohol use -: Prior tobacco use -: Questionable Avascular necrosis of bilateral hips -: Bilateral hip surgery -: Back surgery - Family History Father Notes: Patient with multiple medical issues in his family. Patient with diabetes and pulmonary disease. - Social History Smoking Status: Former smoker Alcohol use: Yes CD- Drugs: No Review of Systems 10-point ROS is otherwise unremarkable Physical Examination - Vital Signs Temperature: 97.9 F Blood Pressure: 156/107 Pulse: 82 Respirations: 17 Pulse Ox (%): 98 - Physical Exam General: Alert, In no apparent distress, Oriented x3 HEENT: Atraumatic, PERRLA, Mucous membr. moist/pink, EOMI, Sclerae nonicteric Neck: Supple, 2+ carotid pulse no bruit, No LAD, Without JVD or thyroid abnormality Respiratory: Clear to auscultation bilaterally, Normal air movement Cardiovascular: Regular rate/rhythm, Normal S1 S2, No murmurs Gastrointestinal: Normal bowel sounds, Soft and benign, Non-distended, No rebound, Tenderness (Patient with epigastric tenderness), Guarding Musculoskeletal: No clubbing, No swelling, No tenderness Integumentary: No rashes Neurological: Normal gait, Normal speech, Normal strength at 5/5 x4 extr, Normal tone, Sensation intact, Cranial nerves 3-12 intact, Normal affect Lymphatics: No axilla or inguinal lymphadenopathy - Studies Laboratory Data (last 24 hrs) 04/13/19 04:57: PT 11.8, INR 1.00 04/13/19 04:54: PT Cancelled, INR Cancelled 04/13/19 04:43: Creatinine 0.83 04/13/19 04:43: WBC 7.1, Hgb 14.4, Hct 42.6, Plt Count 138 L 04/13/19 04:43: Sodium 131 L, Potassium 3.4 L, BUN 9, Creatinine 0.82, Glucose 113 H, Magnesium 1.8, Total Bilirubin 1.2 H, AST 41 H, ALT 48, Alkaline Phosphatase 95, Lipase 672 H 04/13/19 04:41: Creatinine Cancelled 04/13/19 04:41: WBC Cancelled, Hgb Cancelled, Hct Cancelled, Plt Count Cancelled 04/13/19 04:41: Sodium Cancelled, Potassium Cancelled, BUN Cancelled, Creatinine Cancelled, Glucose Cancelled, Magnesium Cancelled, Total Bilirubin Cancelled, AST Cancelled, ALT Cancelled, Alkaline Phosphatase Cancelled, Lipase Cancelled Assessment & Plan - Problems (Diagnosis) (1) Acute pancreatitis Current Visit: Yes Status: Acute (2) Alcohol use Current Visit: Yes Status: Acute (3) History of hip surgery Current Visit: Yes Status: Acute (4) History of back surgery Current Visit: Yes Status: Acute (5) History of tobacco use Current Visit: Yes Status: Acute - Plan Plan: 1. Aggressive IV hydration 2. Repeat electrolytes along with lipid profile and lipase level 3. Pain control 4. NPO 5. Counseled regarding refraining from alcohol use as is risk of pancreatitis has increased 6. Monitor hemodynamics closely 7. CT abdomen pelvis pending 8. GI and DVT prophylaxis Discharge Plan: Home Plan to discharge in: Greater than 2 days - Advance Directives Does patient have a Living Will: No Does patient have a Durable POA for Healthcare: No - Code Status/Comfort Care Code Status Assessed: Yes Code Status: Full Code Critical Care: No Time Spent Managing PTS Care (In Minutes): 40
[2019-04-13 08:06] VITALS: BMI 33.9
[2019-04-13] MEDS: HYDROMORPHONE HCL 1 MG/ML INJ IV PRN ×5 (08:09→21:05)
[2019-04-13] MEDS ORDERED: OXYCODONE HCL 5 MG TAB PO PRN (10:11)
--- NOTE | 2019-04-13 10:16 | RAD REPORT ---
EXAM DESCRIPTION: Penny Single View04/13/2019 5:12 am CLINICAL HISTORY: Chest pain COMPARISON: 2016 FINDINGS: The lungs appear clear of acute infiltrate. The heart is normal size IMPRESSION: No acute abnormalities displayed
--- NOTE | 2019-04-13 12:29 | EKG ---
Test Date: 2019-04-13 Test Time: 05:13:46 Book Cleaner: LIYAH MEASUREMENT RESULTS: Intervals: Rate: 78 MN: 134 QRSD: 84 QT: 364 QTc: 414 [place]: P: 49 MN: 134 QRS: 40 T: 35 INTERPRETIVE STATEMENTS: Normal sinus rhythm Normal ECG Compared to ECG 04/05/2017 05:31:06 Sinus arrhythmia no longer present Electronically Signed On 04-13-19 12:28:13 CDT by Nicholas Saldaña
--- NOTE | 2019-04-13 14:26 | P.PN ---
Date of Service: 04/13/19 Patient seen and examined. Acute pancreatitis suspected to be alcohol-induced. He reports uncontrolled abdominal pain. Patient reports the hydromorphone has not been effective in controlling his pain. He refused to take oral oxycodone. I changed pain medications to IV morphine p.r.n. Continue IV hydration and antiemetics. Serial lipase Keep NPO today. Monitor liver enzymes and blood chemistry. Follow CT abdomen and pelvis official result.
[2019-04-13 23:37] VITALS: O2SAT 97
[2019-04-14] MEDS: HYDROMORPHONE HCL 1 MG/ML INJ IV PRN ×5 (00:30→12:07)
[2019-04-14] MEDS: NA CHLORIDE 0.9% 1,000 ML IV SCH ×3 (02:17→16:20)
[2019-04-14 06:30] LABS: Absolute Lymphocytes (CBC) 0.9 K/uL (0.7-4.9); Basophils % 0.4 % (0-1.3); Hematocrit 37.8 % (39.6-49.0); Lymphocytes % 20.8 % (15.3-44.8); MPV 9.1 fL (7.6-11.3); RBC Red Blood Cell Count 4.22 M/uL (4.33-5.43)
[2019-04-14 06:43] LABS: ALT/SGPT 59 U/L (12-78); AST/SGOT 66 U/L (15-37); Albumin 3.9 g/dL (3.4-5.0); Alkaline Phosphatase 82 U/L (45-117); BUN Blood Urea Nitrogen 10 mg/dL (7-18); Bicarbonate 28 mmol/L (21-32); Bilirubin Total 1.1 mg/dL (0.2-1.0); Glucose Level 85 mg/dL (74-106); HDL Cholesterol 63 mg/dL (40-60); LDL Cholesterol, Calculated 72 (<130); Lipase 265 U/L (73-393); Protein, Total 7.4 g/dL (6.4-8.2); Sodium Level 137 mmol/L (136-145)
--- NOTE | 2019-04-14 10:58 | P.PN ---
Subjective Date of Service: 04/14/19 Chief Complaint: Acute pancreatitis secondary to alcoholism Patient reports significant improvement in abdominal pain. He stated he is hungry and requesting for food. He has been afebrile. Physical Examination - Vital Signs Temperature: 98.0 F Blood Pressure: 139/85 Pulse: 76 Respirations: 19 Pulse Ox (%): 95 - Physical Exam General: Alert, In no apparent distress, Oriented x3 HEENT: Mucous membr. moist/pink Neck: Supple, JVD not distended Respiratory: Clear to auscultation bilaterally, Normal air movement Cardiovascular: No edema, Regular rate/rhythm, Normal S1 S2, No murmurs Capillary refill: <2 Seconds Gastrointestinal: Normal bowel sounds, Soft and benign, Non-distended, Tenderness (Mild epigastric tenderness on deep palpation.) Musculoskeletal: No swelling, No erythema Integumentary: No rashes, No erythema Neurological: Normal speech, Normal strength at 5/5 x4 extr, Cranial nerves 3- 12 intact Assessment And Plan - Current Problems (Diagnosis) (1) Acute pancreatitis Current Visit: Yes Status: Acute (2) Alcohol use Current Visit: Yes Status: Acute (3) History of tobacco use Current Visit: Yes Status: Acute - Plan Clinically improved. AST is mildly elevated and could be due to alcohol intake. Start clear liquid diet and advance as tolerated Continue IV opiates p.r.n. for pain Alcohol cessation advised Smoking cessation also advised.
--- NOTE | 2019-04-14 16:54 | P.DS ---
Admission Date: 04/13/19 Discharge Date: 04/14/19 Disposition: ROUTINE DISCHARGE Discharge Condition: GOOD Reason for Admission: Acute pancreatitis secondary to alcoholism Consultations: None Procedures: None - Problems (1) Acute pancreatitis Status: Acute (2) Alcohol use Status: Acute (3) History of tobacco use Status: Acute Brief History of Present Illness: 44 year old gentleman with a PMH of HTN presented to the ED with a complain of abdominal pain of sudden onset, occurred after he drank a 6 pack beer. He has a history of acute pancreatitis in the past. His lipase was elevated to [address] abdomen/pelvis reported findings suggestive of acute pancreatitis and borderline distended gall bladder but no gall stones. Patient was admitted for further management. Hospital Course: Patient was kept NPO and treated supportively with IV fluids, IV hydromorphone prn for pain and antiemetics. His lipase level trended down to normal the next day of hospitalization. Patient initially required IV hydromorphone around the clock but his pain improved the following day and required less pain medication. He also tolerated diet advancement to soft diet today without nausea or vomiting or abdominal pain. Total bilirubin level was mildly elevated but this trended down. AST was also mildly elevated. Other liver enzymes were within normal limit. Fatty liver as reported by the CT abdomen was noted and could explain the elevated AST and bilirubin. Patient has been advised to avoid alcohol and to loose weight. He is deemed clinically stable for discharge. Vital Signs/Physical Exam: Temp Pulse Resp BP Pulse Ox 98.0 F 78 19 158/89 H 98 04/14/19 12:00 04/14/19 12:00 04/14/19 12:37 04/14/19 12:00 04/14/19 12:37 General: Alert, In no apparent distress, Oriented x3 HEENT: Mucous membr. moist/pink Neck: Supple Respiratory: Clear to auscultation bilaterally, Normal air movement Cardiovascular: No edema Gastrointestinal: Normal bowel sounds, Soft and benign, Non-distended, No tenderness Musculoskeletal: No swelling Integumentary: No rashes Neurological: Normal strength at 5/5 x4 extr Laboratory Data at Discharge: WBC 4.4 K/uL (4.3-10.9) D 04/14/19 05:45 Hgb 12.8 g/dL (13.6-17.9) L 04/14/19 05:45 Hct 37.8 % (39.6-49.0) L 04/14/19 05:45 Plt Count 105 K/uL (152-406) L D 04/14/19 05:45 PT 11.8 SECONDS (9.5-12.5) 04/13/19 04:57 INR 1.00 04/13/19 04:57 Sodium 137 mmol/L (136-145) 04/14/19 05:45 Potassium 4.0 mmol/L (3.5-5.1) 04/14/19 05:45 BUN 10 mg/dL (7-18) 04/14/19 05:45 Creatinine 0.68 mg/dL (0.55-1.3) 04/14/19 05:45 Glucose 85 mg/dL (74-106) 04/14/19 05:45 Magnesium 1.8 mg/dL (1.8-2.4) 04/13/19 04:43 Total Bilirubin 1.1 mg/dL (0.2-1.0) H 04/14/19 05:45 AST 66 U/L (15-37) H 04/14/19 05:45 ALT 59 U/L (12-78) 04/14/19 05:45 Alkaline Phosphatase 82 U/L (45-117) 04/14/19 05:45 Triglycerides 104 mg/dL (<150) 04/14/19 05:45 Cholesterol 156 mg/dL (<200) 04/14/19 05:45 HDL Cholesterol 63 mg/dL (40-60) H 04/14/19 05:45 Cholesterol/HDL Ratio 2.48 04/14/19 05:45 Lipase 265 U/L (73-393) 04/14/19 05:45 Home Medications: Amlodipine [Norvasc*] 10 mg PO DAILY 04/13/19 Carvedilol [Coreg*] 12.5 mg PO DAILY 04/13/19 Lansoprazole [Prevacid] 30 mg PO PRN 04/13/19 Lisinopril [Prinivil*] 20 mg PO DAILY 04/13/19 Patient Discharge Instructions: Follow up with PCP within 2 weeks. Avoid alcohol. Diet: AHA Activity: Ad kath Followup: BILLY CAMPUZANO [OUTSIDE PHYSICIAN] - 1-2 Weeks (Call to schedule an appointment) Time spent managing pt's care (in minutes): 38
[2019-04-14 16:55] VITALS: BP 160/91; TEMP 97.8
--- NOTE | 2019-04-15 13:07 | RAD REPORT ---
EXAM DESCRIPTION: CT - Abdomen Pelvis W Contrast - 04/13/2019 7:11 am CLINICAL HISTORY: The patient is 44 years old and is Male; ABD PAIN TECHNIQUE: Axial computed tomography images of the abdomen and pelvis with intravenous contrast. S agittal and coronal reformatted images were created and reviewed. This CT exam was performed using one or more of the following dose reduction techniques: automated exposure control, adjustment of t he mA and/or kV according to patient size, and/or use of iterative reconstruction technique. COMPARISON: No relevant prior studies available. FINDINGS: LUNG BASES: Unremarkable. No mass. No consolidation. ABDOMEN: LIVER: There is a diffuse decrease in hepatic parenchymal density, consistent with fatty infiltr ation. GALLBLADDER AND BILE DUCTS: The gallbladder is distended. No calcified gallstones are seen. PANCREAS: Peripancreatic inflammation and fluid surrounding the head and uncinate process of the pancreas is present. SPLEEN: Unremarkable. ADRENALS: Unremarkable. No mass. KIDNEYS AND URETERS: Unremarkable. The kidneys enhance symmetrically. No obstructing renal or ur eteral calculus is seen. No hydronephrosis or hydroureter. No perinephric fluid or stranding. STOMACH AND BOWEL: Oral contrast is present within the stomach and small bowel. Bowel wall thick ening and surrounding inflammation involving the proximal duodenum is noted. Oral contrast is noted w ithin the proximal small bowel. The remainder the small bowel is normal in caliber. Stool is present throughout colon. Scattered colonic diverticula are noted without surrounding inflammation. PELVIS: APPENDIX: The appendix is normal in caliber without surrounding inflammation. BLADDER: The bladder is well distended. REPRODUCTIVE: Unremarkable as visualized. ABDOMEN and PELVIS: INTRAPERITONEAL SPACE: Unremarkable. No free air. No significant fluid collection. BONES/JOINTS: Bilateral hip prostheses are present. SOFT TISSUES: The soft tissues are normal. VASCULATURE: The IVC is duplex. No abdominal aortic aneurysm. LYMPH NODES: Unremarkable. No enlarged lymph nodes. IMPRESSION: 1. Findings suggestive of mild acute pancreatitis. 2. Distended gallbladder. No calcified gallstones. If there is clinical concern for acute gallbladd er pathology, findings could be further evaluated with ultrasound or HIDA scan. Electronically signed by: Elif Cleveland MD 04/13/2019 6:35 AM CDT Due to temporary technical issues with the PACS/Fluency reporting system, reports are being signed by the in house radiologist as a courtesy to ensure prompt reporting. The interpreting radiologist is f ully responsible for the content of the report.
== END 2019-04-14 18:17 | disposition home or self-care (01) | DRG 440 ==
LOC: ER 04:28 → ERHOLD 06:24 → OBSVTOIN 06:24 → 4TH 06:34
PROVIDERS: ADMIT Hospitalist; ATTEND Hospitalist
DX: K85.20 Alcohol induced acute pancreatitis without necrosis or infection (principal); Z87.891 Personal history of nicotine dependence
CPT/HCPCS: 36415; 71045; 74177; 80048; 80053; 80061; 80076; 83690; 83735; 83880; 84484; 85025; 85610; 93005; 96361; 96365; 96375; 99285; J1170; J2405; J7030; Q9967

== ENCOUNTER 2021-06-01 18:31 | Inpatient (IN) | payer BC, SELFPAY ==
[2021-06-01] MEDS ORDERED: ONDANSETRON 4 MG/2 ML VIAL ONE ×2 (20:04→21:01)
[2021-06-01] MEDS ORDERED: MORPHINE 4 MG/ML SYR ONE ×2 (20:04→21:01)
[2021-06-01] MEDS ORDERED: NA CHLORIDE 0.9% 3,000 ML ONE (20:04)
[2021-06-01] MEDS ORDERED: FAMOTIDINE 20 MG/2 ML VIAL IV ONE (20:05)
[2021-06-01 20:09] LABS: Absolute Lymphocytes (CBC) 0.6 K/uL (0.7-4.9); Basophils % 0.6 % (0-1.3); Lymphocytes % 5.3 % (15.3-44.8); MPV 7.2 fL (7.6-11.3); RBC Red Blood Cell Count 3.83 M/uL (4.33-5.43)
[2021-06-01 20:14] LABS: Protime INR 1.21
--- NOTE | 2021-06-01 20:36 | RAD REPORT ---
EXAM DESCRIPTION: RAD - Chest Single View - 06/01/2021 8:00 pm CLINICAL HISTORY: ABDOMINAL DISTENTION Chest pain. COMPARISON: Chest Single View dated 04/13/2019; Chest Single View dated 04/05/2017; CHEST PA AND LAT 2 VIEW dated 06/15/2011; CHEST SINGLE VIEW dated 01/08/2011 FINDINGS: Portable technique limits examination quality. The lungs are grossly clear. The heart is normal in size. No displaced fractures. IMPRESSION: No acute intrathoracic process suspected.
[2021-06-01 21:16] LABS: ALT/SGPT 39 U/L (12-78); AST/SGOT 48 U/L (15-37); Albumin 3.7 g/dL (3.4-5.0); Alkaline Phosphatase 145 U/L (45-117); BUN Blood Urea Nitrogen 11 mg/dL (7-18); Bicarbonate 26 mmol/L (21-32); Bilirubin Direct 0.7 mg/dL (0-0.2); Bilirubin Total 1.3 mg/dL (0.2-1.0); Glucose Level 102 mg/dL (74-106); HDL Cholesterol 36 mg/dL (40-60); LDL Cholesterol, Calculated 90 (<130); Lipase 1979 U/L (73-393); Magnesium 1.9 mg/dL (1.8-2.4); NT PRO-BNP 462 pg/mL (<125); Potassium 3.8 mmol/L (3.5-5.1); Protein, Total 8.4 g/dL (6.4-8.2); Sodium Level 127 mmol/L (136-145); Troponin (Emerg Dept Use Only) < 0.02 ng/mL (0.0-0.045)
--- NOTE | 2021-06-01 21:49 | EDPHYS ---
Physician Documentation [facility] Name: Terry Saenz Jr Age: 46 yrs Sex: Male : 1975 Arrival Date: 06/01/2021 Time: 18:40 Bed 7 Private MD: Mimi Ferrell C ED Physician Artemio Bojorquez HPI: 06/01 21:36 This 46 yrs old Male presents to ER via Ambulatory with complaints of hortencia Abdominal Pain. 21:36 The patient presents with abdominal pain in the upper abdomen, abdominal distention in hortencia the upper abdomen, in the lower abdomen. Onset: The symptoms/episode began/occurred 4 day(s) ago. The patient presents to the emergency department with nausea, vomiting. Onset: The symptoms/episode began/occurred 4 day(s) ago. Possible causes: unknown. The symptoms are aggravated by movement, The symptoms are alleviated by remaining still. Associated signs and symptoms: The patient has no apparent associated signs or symptoms. The symptoms do not radiate. Modifying factors: The symptoms are alleviated by nothing, the symptoms are aggravated by food. Historical: - Allergies: 18:47 No Known Allergies; jh6 - Home Meds: 18:47 amlodipine oral [Active]; carvedilol Oral [Active]; lisinopril Oral [Active]; Prevacid jh6 Oral [Active]; - PMHx: 18:47 avascular necrosis; chronic back pain; Hypertension; jh6 - Social history:: Smoking status: Patient denies any tobacco usage or history of. - Family history:: not pertinent. ROS: 21:36 Constitutional: Negative for fever, chills, and weight loss, Eyes: Negative for injury, hortencia pain, redness, and discharge, ENT: Negative for injury, pain, and discharge, Neck: Negative for injury, pain, and swelling, Cardiovascular: Negative for chest pain, palpitations, and edema, Respiratory: Negative for shortness of breath, cough, wheezing, and pleuritic chest pain, Back: Negative for injury and pain, : Negative for injury, bleeding, discharge, and swelling, MS/Extremity: Negative for injury and deformity, Skin: Negative for injury, rash, and discoloration, Neuro: Negative for headache, weakness, numbness, tingling, and seizure, Psych: Negative for depression, anxiety, suicide ideation, homicidal ideation, and hallucinations, Allergy/Immunology: Negative for hives, rash, and allergies, Endocrine: Negative for neck swelling, polydipsia, polyuria, polyphagia, and marked weight changes. 21:36 Abdomen/GI: Positive for abdominal pain, nausea and vomiting, abdominal cramps, abdominal distension. Exam: 21:36 Constitutional: This is a well developed, well nourished patient who is awake, alert, hortencia and in no acute distress. Head/Face: Normocephalic, atraumatic. Eyes: Pupils equal round and reactive to light, extra-ocular motions intact. Lids and lashes normal. Conjunctiva and sclera are non-icteric and not injected. Cornea within normal limits. Periorbital areas with no swelling, redness, or edema. ENT: Nares patent. No nasal discharge, no septal abnormalities noted. Tympanic membranes are normal and external auditory canals are clear. Oropharynx with no redness, swelling, or masses, exudates, or evidence of obstruction, uvula midline. Mucous membranes moist. Neck: Trachea midline, no thyromegaly or masses palpated, and no cervical lymphadenopathy. Supple, full range of motion without nuchal rigidity, or vertebral point tenderness. No Meningismus. Chest/axilla: Normal chest wall appearance and motion. Nontender with no deformity. No lesions are appreciated. Cardiovascular: Regular rate and rhythm with a normal S1 and S2. No gallops, murmurs, or rubs. Normal PMI, no JVD. No pulse deficits. Respiratory: Lungs have equal breath sounds bilaterally, clear to auscultation and percussion. No rales, rhonchi or wheezes noted. No increased work of breathing, no retractions or nasal flaring. Back: No spinal tenderness. No costovertebral tenderness. Full range of motion. Male : Normal genitalia with no discharge or lesions. Skin: Warm, dry with normal turgor. Normal color with no rashes, no lesions, and no evidence of cellulitis. MS/ Extremity: Pulses equal, no cyanosis. Neurovascular intact. Full, normal range of motion. Neuro: Awake and alert, GCS 15, oriented to person, place, time, and situation. Cranial nerves II-XII grossly intact. Motor strength 5/5 in all extremities. Sensory grossly intact. Cerebellar exam normal. Normal gait. Psych: Awake, alert, with orientation to person, place and time. Behavior, mood, and affect are within normal limits. 21:36 Abdomen/GI: Inspection: distension, that is mild, Bowel sounds: active, Palpation: moderate abdominal tenderness, in the epigastric area, right upper quadrant and left upper quadrant, Liver: no appreciated palpable abnormalities, Hernia: not appreciated. 21:50 ECG was reviewed by the Attending Physician. [facility] Vital Signs: 18:45 BP 149 / 90; Pulse 112; Resp 18; Temp 98.6(O); Pulse Ox 100% ; Weight 111.13 kg; Height jh6 6 ft. 0 in. (182.88 cm); Pain 8/10; 20:17 BP 142 / 101; Pulse 98; Resp 14 S; Pulse Ox 97% on R/A; mk 21:14 BP 149 / 103; Pulse 96; Resp 15 S; Pulse Ox 99% on R/A; as6 23:30 BP 142 / 99; Pulse 92; Resp 20 S; Pulse Ox 96% on R/A; as6 18:45 Body Mass Index 33.23 (111.13 kg, 182.88 cm) 6 MDM: 19:17 Patient medically screened. [facility] 21:43 Differential diagnosis: appendicitis, diverticulitis, viral gastroenteritis, hortencia gastroenteritis, appendicitis, bowel obstruction, cholecystitis, Cholelithiasis, diverticulitis, gastritis, non-specific abd pain, pancreatitis, Peptic Ulcer Disease, Pyelonephritis, urinary tract infection. Data reviewed: vital signs, nurses notes, lab test result(s), EKG, radiologic studies, CT scan, plain films, ultrasound. Data interpreted: radiation monitor: rate is 96 beats/min, rhythm is regular, Pulse oximetry: on room air is 99 %. Test interpretation: by ED physician or midlevel provider: ECG, plain radiologic studies. Counseling: I had a detailed discussion with the patient and/or guardian regarding: the historical points, exam findings, and any diagnostic results supporting the discharge/admit diagnosis, lab results, radiology results, the need for further work-up and treatment in the hospital. 06/01 19:43 Order name: Basic Metabolic Panel [facility] 06/01 19:43 Order name: CBC with Diff [facility] 06/01 19:43 Order name: LFT's [facility] 06/01 19:43 Order name: Magnesium [facility] 06/01 19:43 Order name: NT PRO-BNP [facility] 06/01 19:43 Order name: PT-INR; Complete Time: 20:42 [facility] 06/01 19:43 Order name: Troponin (emerg Dept Use Only); Complete Time: 21:32 [facility] 06/01 19:43 Order name: Lipase; Complete Time: 21:32 [facility] 06/01 19:43 Order name: Lipid Profile; Complete Time: 21:32 [facility] 06/01 19:43 Order name: SARS-COV-2 RT PCR (Document "Date of Onset" if Symptomatic); Complete Time: hortencia 21:32 06/01 19:44 Order name: Basic Metabolic Panel; Complete Time: 21:32 EDMS 06/01 19:44 Order name: CBC with Automated Diff; Complete Time: 20:42 EDVT 06/01 19:44 Order name: Liver (Hepatic) Function; Complete Time: 21:32 EDVT 06/01 19:44 Order name: Magnesium; Complete Time: 21:32 EDVT 06/01 19:43 Order name: XRAY Chest (1 view); Complete Time: 20:42 [facility] 06/01 19:43 Order name: EKG; Complete Time: 19:44 [facility] 06/01 19:43 Order name: Cardiac monitoring; Complete Time: 20:16 [facility] 06/01 19:43 Order name: CT Abd/Pelvis - IV Contrast Only [facility] 06/01 19:44 Order name: NT PRO-BNP; Complete Time: 21:32 EDVT 06/01 21:34 Order name: US Abdomen Limited [facility] 06/01 19:43 Order name: EKG - Nurse/Tech; Complete Time: 20:16 [facility] 06/01 19:43 Order name: IV Saline Lock; Complete Time: 20:16 [facility] 06/01 19:43 Order name: Labs collected and sent; Complete Time: 20:16 [facility] 06/01 19:43 Order name: O2 Per Protocol; Complete Time: 20:16 [facility] 06/01 19:43 Order name: O2 Sat Monitoring; Complete Time: 20:16 [facility] EC:50 Rate is 97 beats/min. Rhythm is regular. QRS [place] is Normal. AL interval is normal. QRS hortencia interval is normal. QT interval is normal. No Q waves. T waves are Normal. No ST changes noted. Clinical impression: NSR w/ Non-specific ST/T Changes and No evidence of ischemia. Interpreted by me. Reviewed by me. Administered Medications: 20:10 Drug: NS 0.9% 1000 ml Route: IV; Rate: 1 bolus; Site: right antecubital; mk 21:11 Follow up: Response: No adverse reaction; IV Status: Completed infusion; IV Intake: as6 1000ml 20:10 Drug: NS 0.9% 1000 ml Route: IV; Rate: 1 bolus; Site: right antecubital; mk 21:11 Follow up: Response: No adverse reaction; IV Status: Completed infusion; IV Intake: as6 1000ml 20:10 Drug: morphine 4 mg Route: IVP; Site: right antecubital; mk 21:12 Follow up: Response: No adverse reaction; RASS: Alert and Calm (0) as6 20:10 Drug: Zofran (Ondansetron) 4 mg Route: IVP; Site: right antecubital; mk 21:12 Follow up: Response: No adverse reaction as6 20:10 Drug: Pepcid (famotidine) 20 mg Route: IVP; Site: right antecubital; mk 21:12 Follow up: Response: No adverse reaction as6 21:10 Drug: morphine 4 mg Route: IVP; Site: right antecubital; as6 21:11 Drug: NS 0.9% 1000 ml Route: IV; Rate: 125 ml/hr; Site: right antecubital; as6 21:11 Drug: Zofran (Ondansetron) 4 mg Route: IVP; Site: right antecubital; as6 21:55 Drug: NS 0.9% 1000 ml Route: IV; Rate: 1 bolus; Site: right antecubital; vg1 23:01 Drug: Dilaudid (HYDROmorphone) 1 mg Route: IVP; Site: right antecubital; as6 Disposition Summary: 06/01/21 21:49 Hospitalization Ordered Hospitalization Status: Inpatient Admission hortencia Provider: Pattei Aggarwal cha Location: Telemetry/MedSurg (Inpatient) hortencia Condition: Fair hortencia Problem: new hortencia Symptoms: have improved hortencia Bed/Room Type: Standard hortenica Room Assignment: [id number](06/01/21 23:27) cg Diagnosis - Abdominal pain, unspecified hortencia - Vomiting hortencia - Other acute pancreatitis without necrosis or infection hortencia Forms: - Medication Reconciliation Form hortencia - SBAR form hortencia Signatures: Dispatcher [employer] Artemio Church MD MD cha Garcia, Genevieve, RN RN tatiana Isabel, Rochelle, RN RN vg1 Jorden Kang RN RN as6 Sandra Marion RN RN jh6 Concepción García RN RN mk Corrections: (The following items were deleted from the chart) 23:27 21:49 [facility]
--- NOTE | 2021-06-01 21:49 | ER ---
Nurse's Notes [facility] Name: Terry Saenz Jr Age: 46 yrs Sex: Male : 1975 Arrival Date: 06/01/2021 Time: 18:40 Bed 7 Private MD: Mimi Ferrell C Diagnosis: Abdominal pain, unspecified;Vomiting;Other acute pancreatitis without necrosis or infection Presentation: 06/01 18:45 Chief complaint: Patient states: hx of pancreatitis and has had increased upper abd 6 pain. sudden onset 4 days ago. Coronavirus screen: Vaccine status: Patient reports being unvaccinated. Ebola Screen: No symptoms or risks identified at this time. Initial Sepsis Screen: Does the patient meet any 2 criteria? No. Patient's initial sepsis screen is negative. Does the patient have a suspected source of infection? No. Patient's initial sepsis screen is negative. Risk Assessment: Do you want to hurt yourself or someone else? Patient reports no desire to harm self or others. Onset of symptoms was May 31, 2021 at 08:00. 18:45 Method Of Arrival: Ambulatory [facility] 18:45 Acuity: SCOUT 3 [facility] Triage Assessment: 18:48 General: Appears in no apparent distress. Behavior is calm, cooperative. Pain: [facility] Complains of pain in epigastric area, left upper quadrant and left lower quadrant Pain currently is 8 out of 10 on a pain scale. Quality of pain is described as sharp, throbbing, Pain began 2-3 days ago. Is continuous, Aggravated by eating, drinking, increased activity. GI: Abd is soft Abdomen is tender to palpation in epigastric area and left upper quadrant. Historical: - Allergies: 18:47 No Known Allergies; [facility] - Home Meds: 18:47 amlodipine oral [Active]; carvedilol Oral [Active]; lisinopril Oral [Active]; Prevacid jh6 Oral [Active]; - PMHx: 18:47 avascular necrosis; chronic back pain; Hypertension; [facility] - Social history:: Smoking status: Patient denies any tobacco usage or history of. - Family history:: not pertinent. Screenin:19 Abuse screen: Denies threats or abuse. Nutritional screening: No deficits noted. mk Tuberculosis screening: No symptoms or risk factors identified. Fall Risk None identified. Assessment: 20:18 General: Appears in no apparent distress. uncomfortable, Behavior is calm, cooperative. mk Pain: Complains of pain in abdomen. Neuro: Level of Consciousness is awake, alert, obeys commands, Oriented to person, place, time, situation. Cardiovascular: Capillary refill < 3 seconds Patient's skin is warm and dry. Respiratory: Airway is patent Trachea midline Respiratory effort is even, unlabored, Respiratory pattern is regular, symmetrical. GI: Bowel sounds present X 4 quads. Reports lower abdominal pain, upper abdominal pain, constipation, cramping. Derm: Skin is intact, is healthy with good turgor. 21:15 Reassessment: No changes from previously documented assessment. Patient and/or family as6 updated on plan of care and expected duration. Pain level reassessed. Patient is alert, oriented x 3, equal unlabored respirations, skin warm/dry/pink. Vital Signs: 18:45 BP 149 / 90; Pulse 112; Resp 18; Temp 98.6(O); Pulse Ox 100% ; Weight 111.13 kg; Height jh6 6 ft. 0 in. (182.88 cm); Pain 8/10; 20:17 BP 142 / 101; Pulse 98; Resp 14 S; Pulse Ox 97% on R/A; mk 21:14 BP 149 / 103; Pulse 96; Resp 15 S; Pulse Ox 99% on R/A; as6 23:30 BP 142 / 99; Pulse 92; Resp 20 S; Pulse Ox 96% on R/A; as6 18:45 Body Mass Index 33.23 (111.13 kg, 182.88 cm) 6 ED Course: 18:40 Patient arrived in ED. am2 18:41 Mimi Ferrell FNP is Private Physician. am2 18:47 Triage completed. jh6 18:49 Arm band placed on right wrist. jh6 19:12 Anisa Lopez is Primary Nurse. tw5 19:17 Artemio Bojorquez MD is Attending Physician. hortencia 20:00 XRAY Chest (1 view) In Process Unspecified. EDMS 20:16 SARS-COV-2 RT PCR (Document "Date of Onset" if Symptomatic) Sent. mk 20:19 Placed in gown. Bed in low position. Call light in reach. Side rails up X2. Cardiac mk monitor on. Pulse ox on. NIBP on. 21:13 Magnesium Sent. as6 21:13 Liver (Hepatic) Function Sent. as6 21:13 NT PRO-BNP Sent. as6 21:13 Basic Metabolic Panel Sent. as6 21:13 Lipase Sent. as6 21:13 Lipid Profile Sent. as6 21:13 Troponin (emerg Dept Use Only) Sent. as6 21:14 NT PRO-BNP Sent. as6 21:14 Magnesium Sent. as6 21:14 LFT's Sent. as6 21:14 CBC with Diff Sent. as6 21:14 Basic Metabolic Panel Sent. as6 21:38 CT Abd/Pelvis - IV Contrast Only In Process Unspecified. EDMS 21:46 Pattie Aggarwal MD is Hospitalizing Provider. hortencia 22:41 US Abdomen Limited In Process Unspecified. EDMS Administered Medications: 20:10 Drug: NS 0.9% 1000 ml Route: IV; Rate: 1 bolus; Site: right antecubital; mk 21:11 Follow up: Response: No adverse reaction; IV Status: Completed infusion; IV Intake: as6 1000ml 20:10 Drug: NS 0.9% 1000 ml Route: IV; Rate: 1 bolus; Site: right antecubital; mk 21:11 Follow up: Response: No adverse reaction; IV Status: Completed infusion; IV Intake: as6 1000ml 20:10 Drug: morphine 4 mg Route: IVP; Site: right antecubital; mk 21:12 Follow up: Response: No adverse reaction; RASS: Alert and Calm (0) as6 20:10 Drug: Zofran (Ondansetron) 4 mg Route: IVP; Site: right antecubital; mk 21:12 Follow up: Response: No adverse reaction as6 20:10 Drug: Pepcid (famotidine) 20 mg Route: IVP; Site: right antecubital; mk 21:12 Follow up: Response: No adverse reaction as6 21:10 Drug: morphine 4 mg Route: IVP; Site: right antecubital; as6 21:11 Drug: NS 0.9% 1000 ml Route: IV; Rate: 125 ml/hr; Site: right antecubital; as6 21:11 Drug: Zofran (Ondansetron) 4 mg Route: IVP; Site: right antecubital; as6 21:55 Drug: NS 0.9% 1000 ml Route: IV; Rate: 1 bolus; Site: right antecubital; vg1 23:01 Drug: Dilaudid (HYDROmorphone) 1 mg Route: IVP; Site: right antecubital; as6 Intake: 21:11 IV: 1000ml; Total: 1000ml. as6 21:11 IV: 1000ml; Total: 2000ml. as6 Outcome: 21:49 Decision to Hospitalize [facility] Provider[facility] 06/02 00:19 [facility] Signatures: Dispatcher [employer] EDArtemio Patel MD MD cha Moreno, Amanda am2 Garcia, Victoria, RN RN vg1 Anisa Lopez tw5 Jorden Kang, RN RN as6 Sandra Marion, RN RN jh6 Concepción García, RN RN mk
[2021-06-01] MEDS ORDERED: NA CHLORIDE 0.9% 1,000 ML ONE (21:52)
--- NOTE | 2021-06-01 21:56 | RAD REPORT ---
EXAM DESCRIPTION: CTAbdomen Pelvis W Contrast - 06/01/2021 9:38 pm CLINICAL HISTORY: Abdominal pain. ABD PAIN COMPARISON: Abdomen Pelvis W Contrast dated 04/13/2019; CT ABD PELVIS W CONTRAST dated 11/23/2014 TECHNIQUE: Biphasic CT imaging of the abdomen and pelvis was performed with 100 ml non-ionic IV cont rast. All CT scans are performed using dose optimization technique as appropriate and may include automated exposure control or mA/KV adjustment according to patient size. FINDINGS: The lung bases are clear. Mild diffuse fatty liver is present. The spleen, adrenal glands and kidneys are within normal limits. Mild peripancreatic inflammation is present compatible with mild acute pancreatitis. The gallbladder is distended and contains multiple stones. No bowel obstruction, free air, free fluid or abscess. Sigmoid diverticulosis coli is present without diverticulitis. The appendix is normal. No evidence of significant lymphadenopathy. Duplicated IVC noted. Bilateral hip arthroplasties are noted. Hardware also present at the lumbosacral junction. IMPRESSION: Mild acute pancreatitis. No evidence of pancreatic necrosis, pseudocyst or portal vein t hrombus. Distended gallbladder with multiple stones.
[2021-06-01] MEDS ORDERED: HYDROMORPHONE HCL 1 MG/ML INJ ONE (22:59)
[2021-06-01] MEDS ORDERED: ACETAMINOPHEN 500 MG TAB PO PRN (23:59)
[2021-06-01] MEDS ORDERED: ONDANSETRON 4 MG/2 ML VIAL IV PRN (23:59)
[2021-06-01] MEDS: NA CHLORIDE 0.9% 1,000 ML IV SCH (23:59)
[2021-06-01] MEDS ORDERED: MORPHINE 4 MG/ML SYR IV PRN (23:59)
[2021-06-02] MEDS ORDERED: HYDROMORPHONE HCL 1 MG/ML INJ IV PRN (00:14)
[2021-06-02] MEDS ORDERED: HYDROMORPHONE HCL 0.5 MG/0.5 ML INJ IV ONE (01:20)
--- NOTE | 2021-06-02 01:32 | P.HP ---
Certification for Inpatient Patient admitted to: Inpatient With expected LOS: >2 Midnights Patient will require the following post-hospital care: None Practitioner: I am a practitioner with admitting privileges, knowledge of patient current condition, hospital course, and medical plan of care. Services: Services provided to patient in accordance with Admission requirements found in Title 42 Section 412.3 of the Code of Federal Regulations <Harshad Presley - Last Filed: 06/02/21 01:27> Patient History Date of Service: 06/01/21 Primary Care Provider: Ghassan Reason for admission: pancreatitis History of Present Illness: Mr. Saenz is a 46 yo M with HTN, GERD, history of pancreatitis who presents wit h 10/10 epigastric abdominal pain beginning on Monday. Pain is worse with eating. Denies nausea and vomiting. Plt 150 Na 127 Cl 90 Tbili 1.3 Dbili 0.7 AST 48 BM{ 462 lipase 1979 CTAP IMPRESSION: Mild acute pancreatitis. No evidence of pancreatic necrosis, pseudocyst or portal vein thrombus. Distended gallbladder with multiple stones. - Past Medical/Surgical History Diabetic: No -: Pancreatitis -: Alcohol use -: Prior tobacco use -: Questionable Avascular necrosis of bilateral hips -: Bilateral hip surgery -: Back surgery - Family History Father Notes: Patient with multiple medical issues in his family. Patient with diabetes and pulmonary disease. - Social History Smoking Status: Never smoker Alcohol use: Yes CD- Drugs: No Caffeine use: No Place of Residence: Home <Harshad Presley - Last Filed: 06/02/21 01:27> Date of Service: 06/01/21 <Pattie Aggarwal - Last Filed: 06/03/21 09:02> Allergies No Known Drug Allergies Allergy (Verified 04/13/19 08:01) Unknown Home Medications: Amlodipine [Norvasc*] 10 mg PO DAILY 04/13/19 lisinopriL [Prinivil*] 20 mg PO DAILY 04/13/19 Review of Systems 10-point ROS is otherwise unremarkable General: Unremarkable Eyes: Unremarkable ENT: Unremarkable Respiratory: Unremarkable Cardiovascular: Unremarkable Gastrointestinal: Abdominal Pain Genitourinary: Unremarkable Musculoskeletal: Unremarkable Integumentary: Unremarkable Neurological: Unremarkable Lymphatics: Unremarkable <Harshad Presley - Last Filed: 06/02/21 01:27> Physical Examination - Vital Signs Temperature: 97.6 F Blood Pressure: 142/93 Pulse: 96 Respirations: 19 Pulse Ox (%): 100 - Physical Exam General: Alert, In no apparent distress HEENT: Atraumatic, PERRLA, Mucous membr. moist/pink, EOMI, Sclerae nonicteric Neck: Supple, 2+ carotid pulse no bruit, No LAD, Without JVD or thyroid abnormality Respiratory: Clear to auscultation bilaterally, Normal air movement Cardiovascular: Regular rate/rhythm, Normal S1 S2 Gastrointestinal: Normal bowel sounds, Tenderness Musculoskeletal: No tenderness Integumentary: No rashes Neurological: Normal speech, Normal strength at 5/5 x4 extr, Normal tone, Normal affect Lymphatics: No axilla or inguinal lymphadenopathy - Studies Laboratory Data (last 24 hrs) 06/01/21 19:57: PT 13.9 H, INR 1.21 06/01/21 19:57: WBC 10.50, Hgb 13.1 L, Hct 38.0 L, Plt Count 150 L 06/01/21 19:57: Sodium 127 L, Potassium 3.8, BUN 11, Creatinine 0.97, Glucose 102, Magnesium 1.9, Total Bilirubin 1.3 H, AST 48 H, ALT 39, Alkaline Phosphatase 145 H, Triglycerides 100, Cholesterol 146, HDL Cholesterol 36 L, Cholesterol/HDL Ratio 4.06, Lipase 1979 H <Harshad Presley - Last Filed: 06/02/21 01:27> Assessment and Plan - Problems (Diagnosis) (1) Acute pancreatitis Current Visit: No Status: Acute Qualifiers: Pancreatitis type: biliary Acute pancreatitis complication: no infection or necrosis Qualified Code(s): K85.10 - Biliary acute pancreatitis without necrosis or infection (2) HTN (hypertension) Current Visit: Yes Status: Chronic Qualifiers: Hypertension type: primary hypertension Qualified Code(s): I10 - Essential (primary) hypertension (3) Dehydration with hyponatremia Current Visit: Yes Status: Acute - Plan NPO continue IVF hydration continue pain management and antiemetics trend lipase DVT ppx Discharge Plan: Home Plan to discharge in: 48 Hours - Advance Directives Does patient have a Living Will: No Does patient have a Durable POA for Healthcare: No - Code Status/Comfort Care Code Status Assessed: Yes (full code ) Critical Care: No Time Spent Managing Pts Care (In Minutes): 70 <Harshad Presley - Last Filed: 06/02/21 01:27> - Problems (Diagnosis) (1) Cholelithiasis Current Visit: Yes Status: Acute (2) Acute pancreatitis Current Visit: No Status: Acute Qualifiers: Pancreatitis type: biliary Acute pancreatitis complication: no infection or necrosis Qualified Code(s): K85.10 - Biliary acute pancreatitis without necrosis or infection (3) Alcohol use Current Visit: No Status: Acute <AggarwalPattie - Last Filed: 06/03/21 09:02> Date of Service: 06/01/21 Subjective Continue with HPI as mentioned above Review of Systems 10-point ROS is otherwise unremarkable Physical Examination - Vital Signs Reviewed - Physical Exam General: Alert, In no apparent distress, Oriented x3 HEENT: Atraumatic, PERRLA, EOMI Neck: Supple, JVD not distended Respiratory: Clear to auscultation bilaterally, Normal air movement Cardiovascular: Regular rate/rhythm, Normal S1 S2 Gastrointestinal: Normal bowel sounds, No guarding, Tenderness, Rebound Musculoskeletal: No clubbing, No swelling, No tenderness Integumentary: No rashes Neurological: Normal speech, Normal tone, Sensation intact, Cranial nerves 3-12 intact, Normal affect Lymphatics: No axilla or inguinal lymphadenopathy - Studies Medications List Reviewed: Yes Assessment & Plan - Problems (Diagnosis) (1) Cholelithiasis Current Visit: Yes Status: Acute (2) Acute pancreatitis Current Visit: No Status: Acute Qualifiers: Pancreatitis type: biliary Acute pancreatitis complication: no infection or necrosis Qualified Code(s): K85.10 - Biliary acute pancreatitis without necrosis or infection (3) Alcohol use Current Visit: No Status: Acute - Plan 1. Continue with IV hydration 2. Outpatient follow-up with General surgery 3. Continue with pain control 4. NPO; possibly start clear liquid diet in the morning 5. Strict blood pressure control 6. We will monitor CBC, BMP, LFTs and lipase along with electrolytes. 7. GI and DVT prophylaxis Discharge Plan: Home Plan to discharge in: Greater than 2 days - Advance Directives Does patient have a Living Will: No Does patient have a Durable POA for Healthcare: No - Code Status/Comfort Care Code Status Assessed: Yes Code Status: Full Code Critical Care: No Time Spent Managing PTS Care (In Minutes): 35 <Pattie Aggarwal - Last Filed: 06/03/21 09:02>
[2021-06-02 03:59] LABS: Absolute Lymphocytes (CBC) 0.7 K/uL (0.7-4.9); Basophils % 0.3 % (0-1.3); Hematocrit 33.4 % (39.6-49.0); Lymphocytes % 9.1 % (15.3-44.8); MPV 7.3 fL (7.6-11.3); RBC Red Blood Cell Count 3.32 M/uL (4.33-5.43)
[2021-06-02 04:35] LABS: ALT/SGPT 34 U/L (12-78); AST/SGOT 36 U/L (15-37); Alkaline Phosphatase 111 U/L (45-117); BUN Blood Urea Nitrogen 8 mg/dL (7-18); Bicarbonate 26 mmol/L (21-32); Bilirubin Total 0.9 mg/dL (0.2-1.0); Glucose Level 87 mg/dL (74-106); Lipase 1778 U/L (73-393); Magnesium 1.8 mg/dL (1.8-2.4); Phosphorus 3.2 mg/dL (2.5-4.9); Potassium 3.7 mmol/L (3.5-5.1); Protein, Total 6.7 g/dL (6.4-8.2); Sodium Level 133 mmol/L (136-145)
[2021-06-02] MEDS: HYDROMORPHONE HCL 1 MG/ML INJ IV PRN ×2 (04:54→08:10)
[2021-06-02] MEDS: NA CHLORIDE 0.9% 1,000 ML IV SCH ×2 (06:41→17:39)
--- NOTE | 2021-06-02 07:45 | RAD REPORT ---
EXAM DESCRIPTION: US - Abdomen Exam Limited - 06/01/2021 10:41 pm CLINICAL HISTORY: ABD PAIN COMPARISON: Abdomen Pelvis W Contrast dated 06/01/2021 FINDINGS: Cholelithiasis as well as gallbladder sludge noted. The gallbladder wall is not thickened and measures 3 millimeters. The common bile duct is nondilated measuring 4 millimeters. IMPRESSION: Cholelithiasis without sonographic evidence of acute cholecystitis.
--- NOTE | 2021-06-02 07:49 | EKG ---
Test Date: 2021-06-01 Test Time: 20:08:15 Assembly And Packing Supervisor: PARTHA MEASUREMENT RESULTS: Intervals: Rate: 97 MD: 138 QRSD: 80 QT: 340 QTc: 431 [place]: P: 71 MD: 138 QRS: 43 T: 41 INTERPRETIVE STATEMENTS: Normal sinus rhythm Normal ECG Compared to ECG 04/13/2019 05:13:46 No significant changes Electronically Signed On 06-02-21 07:48:03 TEMPLATE FITTER by Nicholas Saldaña
[2021-06-02] MEDS ORDERED: HYDROMORPHONE HCL 1 MG/ML INJ IV ONE (08:35)
[2021-06-02] MEDS ORDERED: MAGNESIUM SULFATE 1 gm IVPB 1 GM/100 ML BAG IV ONE (09:00)
[2021-06-02] MEDS ORDERED: KCL 20 MEQ/100 mL IVPB 20 MEQ/100 ML BAG IV ONE (11:00)
[2021-06-02 11:02] LABS: Urine Appearance CLEAR (Clear); Urine Bilirubin NEGATIVE (Negative); Urine Blood NEGATIVE (Negative); Urine Color YELLOW (Yellow); Urine Glucose NEGATIVE (Negative); Urine Protein NEGATIVE (Negative); Urine Specific Gravity 1.015 (1.005-1.030); Urine Urobilinogen >=8.0 mg/dL (0.2-1.0); Urine pH 6.5 (5.0-7.0)
[2021-06-02 11:03] LABS: Urine Microscopic Reflex NO UMIC
[2021-06-02] MEDS: HYDROMORPHONE HCL 2 MG/ML inj IV PRN ×4 (11:36→21:07)
[2021-06-03] MEDS: HYDROMORPHONE HCL 2 MG/ML inj IV PRN ×8 (00:16→21:22)
[2021-06-03] MEDS: NA CHLORIDE 0.9% 1,000 ML IV SCH ×4 (00:18→23:49)
--- NOTE | 2021-06-03 00:25 | P.PN ---
Subjective Date of Service: 06/02/21 Patient still with pain; no GB abnormality except for stones; history of alcohol use and alcoholic pancreatitis. Review of Systems 10-point ROS is otherwise unremarkable Physical Examination - Vital Signs Temperature: 97.1 F Blood Pressure: 149/97 Pulse: 94 Respirations: 18 Pulse Ox (%): 99 - Physical Exam General: Alert, In no apparent distress, Oriented x3 HEENT: Atraumatic, PERRLA, EOMI Neck: Supple, JVD not distended Respiratory: Clear to auscultation bilaterally, Normal air movement Cardiovascular: Regular rate/rhythm, Normal S1 S2 Gastrointestinal: Normal bowel sounds, No guarding, Tenderness, Rebound Musculoskeletal: No clubbing, No swelling, No tenderness Integumentary: No rashes Neurological: Normal speech, Normal tone, Sensation intact, Cranial nerves 3-12 intact, Normal affect Lymphatics: No axilla or inguinal lymphadenopathy - Studies Medications List Reviewed: Yes Assessment & Plan - Problems (Diagnosis) (1) Cholelithiasis Current Visit: Yes Status: Acute (2) Acute pancreatitis Current Visit: No Status: Acute Qualifiers: Pancreatitis type: biliary Acute pancreatitis complication: no infection or necrosis Qualified Code(s): K85.10 - Biliary acute pancreatitis without necrosis or infection (3) Alcohol use Current Visit: No Status: Acute - Plan 1. Continue with IV hydration 2. Outpatient follow-up with General surgery 3. Continue with pain control 4. NPO; possibly start clear liquid diet in the morning 5. Strict blood pressure control 6. We will monitor CBC, BMP, LFTs and lipase along with electrolytes. 7. GI and DVT prophylaxis Discharge Plan: Home Plan to discharge in: Greater than 2 days - Advance Directives Does patient have a Living Will: No Does patient have a Durable POA for Healthcare: No - Code Status/Comfort Care Code Status Assessed: Yes Code Status: Full Code Critical Care: No Time Spent Managing PTS Care (In Minutes): 35
[2021-06-03 04:18] LABS: Absolute Lymphocytes (CBC) 0.5 K/uL (0.7-4.9); Basophils % 0.4 % (0-1.3); Hematocrit 31.3 % (39.6-49.0); Lymphocytes % 7.3 % (15.3-44.8); RBC Red Blood Cell Count 3.09 M/uL (4.33-5.43)
[2021-06-03 04:39] LABS: ALT/SGPT 40 U/L (12-78); AST/SGOT 50 U/L (15-37); Alkaline Phosphatase 142 U/L (45-117); BUN Blood Urea Nitrogen 10 mg/dL (7-18); Bicarbonate 24 mmol/L (21-32); Bilirubin Total 0.9 mg/dL (0.2-1.0); Glucose Level 71 mg/dL (74-106); Lipase 999 U/L (73-393); Magnesium 2.2 mg/dL (1.8-2.4); Potassium 3.7 mmol/L (3.5-5.1); Sodium Level 133 mmol/L (136-145)
[2021-06-03] MEDS ORDERED: KCL 20 MEQ/100 mL IVPB 20 MEQ/100 ML BAG IV SCH (07:00)
[2021-06-03] MEDS ORDERED: KCL 10 MEQ/100 ML IVPB 10 MEQ/100 ML BAG IV ONE (07:00)
--- NOTE | 2021-06-03 12:04 | P.PN ---
Subjective Date of Service: 06/03/21 Primary Care Provider: Ghassan Chief Complaint: pancreatitis Subjective: No new changes Physical Examination - Vital Signs Temperature: 97.1 F Blood Pressure: 149/97 Pulse: 94 Respirations: 18 Pulse Ox (%): 99 - Physical Exam General: Alert, In no apparent distress, Oriented x3 HEENT: Atraumatic, Normocephalic, PERRLA Neck: 2+ carotid pulse no bruit, JVD not distended Respiratory: Clear to auscultation bilaterally, Normal air movement Cardiovascular: No edema, Normal pulses, Regular rate/rhythm, Normal S1 S2 Gastrointestinal: Normal bowel sounds, Soft and benign, Non-distended Musculoskeletal: No clubbing, No swelling Integumentary: No rashes, No breakdown Neurological: Normal gait, Normal speech, Normal strength at 5/5 x4 extr - Studies Medications List Reviewed: Yes Assessment And Plan - Current Problems (Diagnosis) (1) HTN (hypertension) Current Visit: Yes Status: Chronic Qualifiers: Hypertension type: primary hypertension Qualified Code(s): I10 - Essential (primary) hypertension (2) Acute pancreatitis Current Visit: No Status: Acute Qualifiers: Pancreatitis type: biliary Acute pancreatitis complication: no infection or necrosis Qualified Code(s): K85.10 - Biliary acute pancreatitis without necrosis or infection - Plan an 1. Continue with IV hydration 2. Continue to monitor lipase trend Start clear liquids diet today since improving lipase 2999 today Continue routine lab monitoring Possible discharge in a.m. HD tolerating p.o. and improved pain symptoms
[2021-06-03] MEDS: PANTOPRAZOLE 40MG TABLET PO SCH (16:29)
[2021-06-03] MEDS: AMLODIPINE 10 MG TAB PO SCH (16:30)
[2021-06-03] MEDS: lisinopriL 20 MG TAB PO SCH (16:30)
[2021-06-04] MEDS: HYDROMORPHONE HCL 2 MG/ML inj IV PRN ×8 (00:23→23:25)
[2021-06-04 05:16] LABS: Absolute Lymphocytes (CBC) 0.5 K/uL (0.7-4.9); Basophils % 0.4 % (0-1.3); Hematocrit 31.2 % (39.6-49.0); Lymphocytes % 7.8 % (15.3-44.8); MPV 7.1 fL (7.6-11.3); RBC Red Blood Cell Count 3.07 M/uL (4.33-5.43)
[2021-06-04 06:01] LABS: ALT/SGPT 39 U/L (12-78); AST/SGOT 33 U/L (15-37); Albumin 2.9 g/dL (3.4-5.0); Alkaline Phosphatase 126 U/L (45-117); BUN Blood Urea Nitrogen 5 mg/dL (7-18); Bicarbonate 24 mmol/L (21-32); Bilirubin Total 0.8 mg/dL (0.2-1.0); Folic Acid, (Folate) 3.8 ng/mL (3.1-17.5); Glucose Level 94 mg/dL (74-106); Lipase 1067 U/L (73-393); Magnesium 1.9 mg/dL (1.8-2.4); Potassium 3.5 mmol/L (3.5-5.1); Protein, Total 6.9 g/dL (6.4-8.2); Sodium Level 132 mmol/L (136-145)
[2021-06-04] MEDS ORDERED: POTASSIUM CL SA 10 MEQ TAB PO ONE (06:10)
[2021-06-04] MEDS: NA CHLORIDE 0.9% 1,000 ML IV SCH ×3 (07:56→23:59)
[2021-06-04] MEDS: PANTOPRAZOLE 40MG TABLET PO SCH (07:57)
[2021-06-04] MEDS: AMLODIPINE 10 MG TAB PO SCH (07:57)
[2021-06-04] MEDS: lisinopriL 20 MG TAB PO SCH (07:57)
--- NOTE | 2021-06-04 14:29 | P.PN ---
Subjective Date of Service: 06/04/21 Primary Care Provider: Ghassan Chief Complaint: pancreatitis Subjective: No new changes, Tolerating diet (Still abdominal pain) Physical Examination - Vital Signs Temperature: 97.6 F Blood Pressure: 149/87 Pulse: 97 Respirations: 16 Pulse Ox (%): 99 - Physical Exam General: Alert, In no apparent distress, Oriented x3 HEENT: Atraumatic, Normocephalic, PERRLA Respiratory: Clear to auscultation bilaterally, Normal air movement Cardiovascular: Normal pulses, Regular rate/rhythm, Normal S1 S2 Gastrointestinal: Normal bowel sounds, Soft and benign, Tenderness Integumentary: No rashes, No breakdown Neurological: Normal speech, Normal strength at 5/5 x4 extr - Studies Medications List Reviewed: Yes Assessment And Plan - Current Problems (Diagnosis) (1) HTN (hypertension) Current Visit: Yes Status: Chronic Qualifiers: Hypertension type: primary hypertension Qualified Code(s): I10 - Essential (primary) hypertension (2) Acute pancreatitis Current Visit: No Status: Acute Qualifiers: Pancreatitis type: biliary Acute pancreatitis complication: no infection or necrosis Qualified Code(s): K85.10 - Biliary acute pancreatitis without necrosis or infection - Plan Plan Continue with IV hydration Continue to monitor lipase trend Continue to follow repeat lipase level in a.m. Continue clear liquid intake Early ambulation advised Continue as needed pain regimen still elevated blood pressure, increase and adjust medication Time Spent Managing PTS Care (In Minutes): 30
[2021-06-04] MEDS ORDERED: lisinopriL 20 MG TAB PO SCH (16:05)
[2021-06-04] MEDS ORDERED: AMLODIPINE 10 MG TAB PO SCH (16:05)
[2021-06-04] MEDS ORDERED: PANTOPRAZOLE 40MG TABLET PO SCH (16:06)
[2021-06-05 01:36] VITALS: BMI 33.2
[2021-06-05] MEDS: HYDROMORPHONE HCL 2 MG/ML inj IV PRN ×8 (02:48→23:50)
[2021-06-05 05:41] LABS: ALT/SGPT 44 U/L (12-78); AST/SGOT 35 U/L (15-37); Alkaline Phosphatase 133 U/L (45-117); BUN Blood Urea Nitrogen 3 mg/dL (7-18); Bicarbonate 25 mmol/L (21-32); Bilirubin Total 0.9 mg/dL (0.2-1.0); Glucose Level 99 mg/dL (74-106); Lipase 1018 U/L (73-393); Potassium 3.4 mmol/L (3.5-5.1); Protein, Total 7.3 g/dL (6.4-8.2); Sodium Level 132 mmol/L (136-145)
[2021-06-05] MEDS ORDERED: POTASSIUM CL SA 10 MEQ TAB PO ONE (05:44)
[2021-06-05] MEDS: NA CHLORIDE 0.9% 1,000 ML IV SCH (05:51)
[2021-06-05] MEDS: PANTOPRAZOLE 40MG TABLET PO SCH (09:06)
[2021-06-05] MEDS: AMLODIPINE 10 MG TAB PO SCH (09:06)
[2021-06-05] MEDS: METOPROLOL TAR 25 MG TAB PO SCH ×2 (09:14→17:38)
[2021-06-05] MEDS: Ringers Lactate 1,000 ML IV SCH ×2 (09:14→17:38)
--- NOTE | 2021-06-05 11:52 | P.PN ---
Subjective Date of Service: 06/05/21 Primary Care Provider: Ghassan Chief Complaint: pancreatitis Subjective: No new changes, No C/O voiced, Tolerating diet Physical Examination - Vital Signs Temperature: 97.5 F Blood Pressure: 147/94 Pulse: 98 Respirations: 18 Pulse Ox (%): 99 - Physical Exam General: Alert, In no apparent distress, Oriented x3 HEENT: Atraumatic, Normocephalic, PERRLA Neck: Supple, 2+ carotid pulse no bruit, JVD not distended Respiratory: Clear to auscultation bilaterally, Normal air movement Cardiovascular: Normal pulses, Regular rate/rhythm, Normal S1 S2 Gastrointestinal: Normal bowel sounds, Soft and benign, Non-distended Musculoskeletal: No clubbing, No swelling Integumentary: No rashes, No breakdown Neurological: Normal gait, Normal speech, Normal strength at 5/5 x4 extr External genitalia: No edema, No lesions - Studies Medications List Reviewed: Yes Assessment And Plan - Current Problems (Diagnosis) (1) HTN (hypertension) Current Visit: Yes Status: Chronic Qualifiers: Hypertension type: primary hypertension Qualified Code(s): I10 - Essential (primary) hypertension (2) Acute pancreatitis Current Visit: No Status: Acute Qualifiers: Pancreatitis type: biliary Acute pancreatitis complication: no infection or necrosis Qualified Code(s): K85.10 - Biliary acute pancreatitis without necrosis or infection - Plan Plan Still elevated lipase at 1018 but marginally improved from yesterday Still continue clear liquids We will switch IVF to lactated Ringer's to minimize potassium loss since recurrent hypokalemia Replaced potassium Follow magnesium level Continue clear liquid diet Improving pain symptoms, continue to follow Continue early ambulation Improving blood pressure regimen, continue current medication - Code Status/Comfort Care Code Status: Full Code
[2021-06-06] MEDS: Ringers Lactate 1,000 ML IV SCH ×4 (00:50→23:09)
[2021-06-06] MEDS: HYDROMORPHONE HCL 2 MG/ML inj IV PRN ×7 (03:46→23:06)
[2021-06-06 04:37] LABS: ALT/SGPT 41 U/L (12-78); AST/SGOT 28 U/L (15-37); Albumin 3.2 g/dL (3.4-5.0); Alkaline Phosphatase 131 U/L (45-117); BUN Blood Urea Nitrogen 2 mg/dL (7-18); Bicarbonate 29 mmol/L (21-32); Glucose Level 97 mg/dL (74-106); Potassium 4.1 mmol/L (3.5-5.1); Protein, Total 7.8 g/dL (6.4-8.2); Sodium Level 134 mmol/L (136-145)
[2021-06-06] MEDS: METOPROLOL TAR 25 MG TAB PO SCH ×2 (05:59→17:22)
[2021-06-06] MEDS: AMLODIPINE 10 MG TAB PO SCH (08:21)
[2021-06-06] MEDS: PANTOPRAZOLE 40MG TABLET PO SCH (08:21)
--- NOTE | 2021-06-06 14:03 | P.PN ---
Subjective Date of Service: 06/06/21 Primary Care Provider: Ghassan Chief Complaint: pancreatitis Subjective: No new changes, Tolerating diet Physical Examination - Vital Signs Temperature: 96.9 F Blood Pressure: 140/84 Pulse: 100 Respirations: 16 Pulse Ox (%): 98 - Physical Exam General: Alert, In no apparent distress, Oriented x3 HEENT: Atraumatic, Normocephalic, PERRLA Neck: 2+ carotid pulse no bruit, JVD not distended Respiratory: Clear to auscultation bilaterally, Normal air movement Cardiovascular: No edema, Normal pulses, Regular rate/rhythm, Normal S1 S2 Gastrointestinal: Normal bowel sounds, Soft and benign, Non-distended Musculoskeletal: No clubbing, No swelling Neurological: Normal speech, Normal strength at 5/5 x4 extr - Studies Medications List Reviewed: Yes Assessment And Plan - Current Problems (Diagnosis) (1) HTN (hypertension) Current Visit: Yes Status: Chronic Qualifiers: Hypertension type: primary hypertension Qualified Code(s): I10 - Essential (primary) hypertension (2) Acute pancreatitis Current Visit: No Status: Acute Qualifiers: Pancreatitis type: biliary Acute pancreatitis complication: no infection or necrosis Qualified Code(s): K85.10 - Biliary acute pancreatitis without necrosis or infection - Plan Plan Improving lipase level to 800, will advance diet today If further decline in lipase in a.m. and tolerated regular diet will plan for discharge home Continue gentle IV fluid Continue lactated Ringer's Continue as needed pain regimen Improving blood pressure we will switch of lisinopril to metoprolol, adjust dose today Continue amlodipine
[2021-06-07] MEDS: HYDROMORPHONE HCL 2 MG/ML inj IV PRN ×3 (01:43→08:12)
[2021-06-07 04:44] LABS: ALT/SGPT 34 U/L (12-78); AST/SGOT 25 U/L (15-37); Albumin 2.8 g/dL (3.4-5.0); Alkaline Phosphatase 121 U/L (45-117); BUN Blood Urea Nitrogen 4 mg/dL (7-18); Bicarbonate 27 mmol/L (21-32); Bilirubin Total 0.8 mg/dL (0.2-1.0); Glucose Level 100 mg/dL (74-106); Potassium 3.5 mmol/L (3.5-5.1); Protein, Total 6.8 g/dL (6.4-8.2); Sodium Level 133 mmol/L (136-145)
[2021-06-07] MEDS: METOPROLOL TAR 25 MG TAB PO SCH (05:07)
[2021-06-07] MEDS: Ringers Lactate 1,000 ML IV SCH (08:11)
[2021-06-07] MEDS: PANTOPRAZOLE 40MG TABLET PO SCH (08:11)
[2021-06-07] MEDS: AMLODIPINE 10 MG TAB PO SCH (08:11)
[2021-06-07 08:26] VITALS: BP 151/89; TEMP 97.5
[2021-06-07] MEDS ORDERED: HYDROCODONE/APAP 7.5/325 MG TAB PO PRN (08:46)
[2021-06-07] MEDS ORDERED: TRAMADOL HCL 50 MG TAB PO PRN (08:46)
[2021-06-07 08:55] VITALS: O2SAT 100
--- NOTE | 2021-06-07 08:57 | P.DS ---
Admission Date: 06/01/21 Discharge Date: 06/07/21 Primary Care Provider: Ander Campuzano NP Disposition: ROUTINE DISCHARGE Discharge Condition: GOOD Reason for Admission: pancreatitis Consultations: none Procedures: COVID: negative CT scan: COMPARISON: Abdomen Pelvis W Contrast dated 04/13/2019; CT ABD PELVIS W CONTRAST dated 11/23/2014 TECHNIQUE: Biphasic CT imaging of the abdomen and pelvis was performed with 100 ml non-ionic IV contrast. All CT scans are performed using dose optimization technique as appropriate and may include automated exposure control or mA/KV adjustment according to patient size. FINDINGS: The lung bases are clear. Mild diffuse fatty liver is present. The spleen, adrenal glands and kidneys are within normal limits. Mild peripancreatic inflammation is present compatible with mild acute pancreatitis. The gallbladder is distended and contains multiple stones. No bowel obstruction, free air, free fluid or abscess. Sigmoid diverticulosis coli is present without diverticulitis. The appendix is normal. No evidence of significant lymphadenopathy. Duplicated IVC noted. Bilateral hip arthroplasties are noted. Hardware also present at the lumbosacral junction. IMPRESSION: Mild acute pancreatitis. No evidence of pancreatic necrosis, pseudocyst or portal vein thrombus. Distended gallbladder with multiple stones. ABUS: COMPARISON: Abdomen Pelvis W Contrast dated 06/01/2021 FINDINGS: Cholelithiasis as well as gallbladder sludge noted. The gallbladder wall is not thickened and measures 3 millimeters. The common bile duct is nondilated measuring 4 millimeters. IMPRESSION: Cholelithiasis without sonographic evidence of acute cholecystitis. Medical Problem List: Epigastric abdominal pain acute pancreatitis likely alcohol related Cholelithiasis without cholecystitis Hypertension GERD Obesity, BMI 33.2 Brief History of Present Illness: 46-year-old female presented with abdominal epigastric pain. Patient reports some alcohol use. Patient reports a history of pancreatitis. Patient with history of hypertension and GERD. Initial CT scan showed mild pancreatitis. No evidence of pancreatic necrosis, pseudocyst or portal vein thrombus. Patient was admitted for treatment. Hospital Course: Patient presented with epigastric abdominal pain secondary to acute pancreatitis likely alcohol related. Patient was admitted for treatment. Patient with history of pancreatitis in the past. Patient reported some alcohol use prior to admission. CT scan revealed pancreatitis without pancreatic necrosis or pseudocyst. Abdominal ultrasound showed cholelithiasis without cholecystitis. His condition improved. At discharge patient able to tolerate heart healthy diet. Lipase improved. At discharge the patient will continue with a heart healthy diet. Recommend no further use of alcohol. Patient with cholelithiasis. Patient should see a surgeon as an outpatient to further address is a patient may require future surgery. Education on pancreatitis provided. At discharge patient may continue with thiamine 100 mg daily. A limited supply of Tylenol #3 will be provided to be used as needed for pain. Recommend follow-up with PCP in 1 week to follow-up this hospitalization. Patient with hypertension. Medications have been adjusted. New medications includes metoprolol. At discharge patient will continue with metoprolol 50 mg 1 pill twice daily, Norvasc 10 mg daily and lisinopril 5 mg 1 pill daily. Recommend to maintain blood pressure less than 130/80. Further adjustment can be done by his PCP. Patient with underlying GERD. At discharge patient will continue with Protonix 40 mg daily. Education on lifestyle modification education provided. Vital Signs/Physical Exam: Temp Pulse Resp BP Pulse Ox 97.5 F 87 18 151/89 H 99 06/07/21 08:00 06/07/21 08:00 06/07/21 08:12 06/07/21 08:00 06/07/21 08:12 General: Alert, In no apparent distress, Oriented x3, Cooperative HEENT: Atraumatic Neck: Supple Respiratory: Clear to auscultation bilaterally, Normal air movement Cardiovascular: Normal pulses, Regular rate/rhythm Gastrointestinal: Normal bowel sounds, No tenderness, No masses, No rebound, No guarding Integumentary: No tenderness/swelling, No erythema, No warmth, No cyanosis Neurological: Normal speech, Normal strength at 5/5 x4 extr, Normal tone, Normal affect Laboratory Data at Discharge: WBC 5.90 K/uL (4.3-10.9) 06/04/21 04:39 Hgb 10.5 g/dL (13.6-17.9) L 06/04/21 04:39 Hct 31.2 % (39.6-49.0) L 06/04/21 04:39 Plt Count 149 K/uL (152-406) L 06/04/21 04:39 PT 13.9 SECONDS (9.5-12.5) H 06/01/21 19:57 INR 1.21 06/01/21 19:57 Sodium 133 mmol/L (136-145) L 06/07/21 03:19 Potassium 3.5 mmol/L (3.5-5.1) 06/07/21 03:19 BUN 4 mg/dL (7-18) L 06/07/21 03:19 Creatinine 0.52 mg/dL (0.55-1.3) L 06/07/21 03:19 Glucose 100 mg/dL (74-106) 06/07/21 03:19 Phosphorus 3.2 mg/dL (2.5-4.9) 06/02/21 03:10 Magnesium 1.9 mg/dL (1.8-2.4) 06/04/21 04:39 Total Bilirubin 0.8 mg/dL (0.2-1.0) 06/07/21 03:19 AST 25 U/L (15-37) 06/07/21 03:19 ALT 34 U/L (12-78) 06/07/21 03:19 Alkaline Phosphatase 121 U/L (45-117) H 06/07/21 03:19 Triglycerides 100 mg/dL (<150) 06/01/21 19:57 Cholesterol 146 mg/dL (<200) 06/01/21 19:57 HDL Cholesterol 36 mg/dL (40-60) L 06/01/21 19:57 Cholesterol/HDL Ratio 4.06 06/01/21 19:57 Lipase 559 U/L (73-393) H 06/07/21 03:19 Home Medications: Amlodipine [Norvasc*] 10 mg PO DAILY 04/13/19 Codeine/APAP [Tylenol W/Codeine #3 tab] 1 tab PO BID PRN #5 tab 06/07/21 Metoprolol Tartrate 50 mg PO BID #60 tablet 06/07/21 Pantoprazole [Protonix Tab*] 40 mg PO ACB #30 tab 06/07/21 Thiamine HCl 100 mg PO DAILY #90 tablet 06/07/21 lisinopriL [Prinivil*] 5 mg PO DAILY #30 tab 06/07/21 New Medications: Metoprolol Tartrate 50 mg PO BID #60 tablet lisinopriL [Prinivil*] 5 mg PO DAILY #30 tab Pantoprazole [Protonix Tab*] 40 mg PO ACB #30 tab Thiamine HCl 100 mg PO DAILY #90 tablet Codeine/APAP [Tylenol W/Codeine #3 tab] 1 tab PO BID PRN #5 tab PRN Reason: Pain Physician Discharge Instructions: Patient presented with epigastric abdominal pain secondary to acute pancreatitis likely alcohol related. Patient was admitted for treatment. Patient with history of pancreatitis in the past. Patient reported some alcohol use prior to admission. CT scan revealed pancreatitis without pancreatic necrosis or pseudocyst. Abdominal ultrasound showed cholelithiasis without cholecystitis. His condition improved. At discharge patient able to tolerate heart healthy diet. Lipase improved. At discharge the patient will continue with a heart healthy diet. Recommend no further use of alcohol. Patient with cholelithiasis. Patient should see a surgeon as an outpatient to further address is a patient may require future surgery. Education on pancreatitis provided. At discharge patient may continue with thiamine 100 mg daily. A limited supply of Tylenol #3 will be provided to be used as needed for pain. Recommend follow-up with PCP in 1 week to follow-up this hospitalization. Patient with hypertension. Medications have been adjusted. New medications includes metoprolol. At discharge patient will continue with metoprolol 50 mg 1 pill twice daily, Norvasc 10 mg daily and lisinopril 5 mg 1 pill daily. Recommend to maintain blood pressure less than 130/80. Further adjustment can be done by his PCP. Patient with underlying GERD. At discharge patient will continue with Protonix 40 mg daily. Education on lifestyle modification education provided. Diet: AHA Activity: Ad kath Followup: BILLY CAMPUZANO [Primary Care Provider] - Time spent managing pt's care (in minutes): 55
[2021-06-07] MEDS ORDERED: lisinopriL 5 MG TAB PO SCH (09:00)
[2021-06-07] MEDS ORDERED: POTASSIUM CL SA 10 MEQ TAB PO ONE (09:00)
== END 2021-06-07 10:38 | disposition home or self-care (01) | DRG 439 ==
LOC: ER 18:31 → ERHOLD 23:29 → 4TH 23:42 → 2ND 06-05 14:49
PROVIDERS: ADMIT Hospitalist; ATTEND Family Medicine
DX: K85.20 Alcohol induced acute pancreatitis without necrosis or infection (principal); E87.1 Hypo-osmolality and hyponatremia; K86.0 Alcohol-induced chronic pancreatitis; I10 Essential (primary) hypertension; G89.29 Other chronic pain; E87.6 Hypokalemia; K80.20 Calculus of gallbladder without cholecystitis without obstruction; M54.9 Dorsalgia, unspecified; K21.9 Gastro-esophageal reflux disease without esophagitis; E86.0 Dehydration; E66.9 Obesity, unspecified; Z68.33 Body mass index [BMI] 33.0-33.9, adult; Z72.89 Other problems related to lifestyle; Z79.899 Other long term (current) drug therapy; Z20.822 Contact with and (suspected) exposure to COVID-19
CPT/HCPCS: 36415; 71045; 74177; 76705; 80048; 80053; 80061; 80076; 81003; 82607; 82746; 83540; 83690; 83735; 83880; 84100; 84132; 84439; 84443; 84484; 85025; 85610; 93005; 94760; 96361; 96374; 96375; 99284; J1170; J2405; J3475; J3480; J7030; J7120; Q9967; U0003

== ENCOUNTER 2022-01-17 12:25 | Inpatient (IN) | payer BC ==
--- NOTE | 2022-01-17 13:34 | RAD REPORT ---
EXAM DESCRIPTION: US - Abdomen Exam Limited - 01/17/2022 1:20 pm CLINICAL HISTORY: ABD PAIN COMPARISON: Abdomen Exam Limited dated 06/01/2021 FINDINGS: The gallbladder demonstrates gallstones and sludge. No pericholecystic fluid or gallbladde r wall thickening. The common bile duct is normal measuring 5 mm. The liver demonstrates no findings of intrahepatic biliary dilatation. IMPRESSION: Cholelithiasis and gallbladder sludge is present. No sonographic features of acute chol ecystitis evident.
[2022-01-17] MEDS ORDERED: NA CHLORIDE 0.9% 0 ML ONE (13:38)
[2022-01-17] MEDS ORDERED: ONDANSETRON 4 MG/2 ML VIAL ONE (13:57)
[2022-01-17] MEDS ORDERED: MORPHINE 4 MG/ML SYR ONE (13:57)
[2022-01-17] MEDS ORDERED: NA CHLORIDE 0.9% 1,000 ML ONE (13:58)
[2022-01-17 14:18] LABS: Absolute Lymphocytes (CBC) 0.8 K/uL (0.7-4.9); Hematocrit 42.8 % (39.6-49.0); Lymphocytes % 6.5 % (15.3-44.8); MCV 95.8 fL (80-100); MPV 7.8 fL (7.6-11.3); RBC Red Blood Cell Count 4.47 M/uL (4.33-5.43)
[2022-01-17 14:31] LABS: Bilirubin Total 3.4 mg/dL (0.2-1.0); Potassium 3.9 mmol/L (3.5-5.1); Protein, Total 8.2 g/dL (6.4-8.2)
[2022-01-17] MEDS ORDERED: HYDROMORPHONE HCL 1 MG/ML INJ ONE ×3 (15:26→22:13)
[2022-01-17] MEDS ORDERED: NA CHLORIDE 0.9% 50 ML ONE (15:26)
[2022-01-17 16:35] LABS: SARS-CoV-2 Antigen Rapid Res Negative (Negative)
[2022-01-17] MEDS ORDERED: HYDROMORPHONE HCL 0.5 MG/0.5 ML INJ ONE (19:39)
[2022-01-17] MEDS ORDERED: HYDROMORPHONE HCL 1 MG/ML INJ IV PRN (20:16)
[2022-01-17] MEDS ORDERED: HYDRALAZINE HCL 20 MG/ML VIAL IV PRN (20:16)
--- NOTE | 2022-01-17 20:59 | P.HP ---
Certification for Inpatient Patient admitted to: Inpatient Patient will require the following post-hospital care: None Practitioner: I am a practitioner with admitting privileges, knowledge of patient current condition, hospital course, and medical plan of care. Services: Services provided to patient in accordance with Admission requirements found in Title 42 Section 412.3 of the Code of Federal Regulations <Stephen Vale - Last Filed: 01/17/22 20:55> Patient History Date of Service: 01/17/22 Reason for admission: Pancreatitis History of Present Illness: 47-year-old male with history of hypertension, GERD, pancreatitis presents emergency department for 3 days of abdominal pain. Patient reports severe pain primarily epigastric, nonradiating with associated nausea. He reports he has had very little p.o. intake, pretty much only liquids at home but still has worsening pain after even small bouts of liquid. He was evaluated in the [facility] department his labs were significant for white blood cell count of 12 platelets 137 sodium 130 chloride 92 creatinine 1.56 GFR 50 5T bili 3.4 AST 79 alk phos 202 lipase 2322, abdominal ultrasound revealed cholelithiasis and gallbladder sludge present no sonographic features of acute cholecystitis were evident the CBD was measured normal at 5 mm. ED provider discussed the case with general surgery who is willing to consult at this point suspect gallbladder pancreatitis. Patient denies drinking alcohol although he did in the past, lipid panel pending as well as CT abdomen pelvis with IV contrast to further evaluate acute pancreatitis. GI currently available to consult as well but not capable of performing ERCP, general surgery is able to perform intraoperative cholangiogram if indicated. - Past Medical/Surgical History Diabetic: No -: Pancreatitis -: history of Alcohol use -: Prior tobacco use -: Questionable Avascular necrosis of bilateral hips -: HTN -: Bilateral hip surgery -: Back surgery Psychosocial/ Personal History: Pt lives at home with his children, works at [employer]. - Family History Father Notes: Patient with multiple medical issues in his family. Patient with diabetes and pulmonary disease. - Social History Smoking Status: Never smoker Alcohol use: No CD- Drugs: No Caffeine use: No Place of Residence: Home <Stephen Vale - Last Filed: 01/17/22 20:55> Date of Service: 01/18/22 <Abdi Serra - Last Filed: 01/18/22 14:10> Allergies No Known Drug Allergies Allergy (Verified 01/17/22 23:04) Unknown Home Medications: Amlodipine [Norvasc] 10 mg PO DAILY 01/18/22 Lansoprazole [Prevacid 24Hr] 15 mg PO DAILY 01/18/22 carvediloL [Coreg*] 12.5 mg PO BID 01/18/22 Review of Systems 10-point ROS is otherwise unremarkable Gastrointestinal: Nausea, Abdominal Pain, As per HPI <Stephen Vale - Last Filed: 01/17/22 20:55> Physical Examination - Physical Exam General: Alert, In no apparent distress, Oriented x3 HEENT: Atraumatic, PERRLA, Mucous membr. moist/pink, EOMI, Sclerae nonicteric Neck: Supple, 2+ carotid pulse no bruit, No LAD, Without JVD or thyroid abnormality Respiratory: Clear to auscultation bilaterally, Normal air movement Cardiovascular: Regular rate/rhythm, Normal S1 S2 Capillary refill: <2 Seconds Gastrointestinal: Normal bowel sounds, Tenderness (Moderate epigastric/RUQ tenderness) Musculoskeletal: No tenderness Integumentary: No rashes Neurological: Normal gait, Normal speech, Normal strength at 5/5 x4 extr, Normal tone, Normal affect Lymphatics: No axilla or inguinal lymphadenopathy - Studies Laboratory Data (last 24 hrs) 01/17/22 14:00: Sodium 130 L, Potassium 3.9, BUN 14, Creatinine 1.56 H, Glucose 121 H, Total Bilirubin 3.4 H, AST 79 H, ALT 59, Alkaline Phosphatase 202 H, Lipase 2322 H 01/17/22 14:00: WBC 12.0 H, Hgb 14.8, Hct 42.8, Plt Count 137 L <Stephen Vale - Last Filed: 01/17/22 20:55> - Studies Laboratory Data (last 24 hrs) 01/17/22 19:51: Triglycerides Cancelled, Cholesterol Cancelled, HDL Cholesterol Cancelled, Cholesterol/HDL Ratio Cancelled 01/17/22 14:00: Sodium 130 L, Potassium 3.9, BUN 14, Creatinine 1.56 H, Glucose 121 H, Total Bilirubin 3.4 H, AST 79 H, ALT 59, Alkaline Phosphatase 202 H, Triglycerides 177 H, Cholesterol 155, HDL Cholesterol 27 L, Cholesterol/HDL Ratio 5.74, Lipase 2322 H 01/17/22 14:00: WBC 12.0 H, Hgb 14.8, Hct 42.8, Plt Count 137 L <Abdi Serra - Last Filed: 01/18/22 14:10> Assessment and Plan - Plan Assessment: Acute pancreatitis Cholelithiasis Hypertension GERD Plan: Acute pancreatitis: Suspect gallbladder pancreatitis given cholelithiasis/gallbladder sludge present. No signs of cholecystitis on ultrasound. Case was discussed with general surgery plan is for n.p.o. after midnight, IV antibiotics, cholecystectomy with cholangiogram tomorrow. Lipid panel pending, patient reports he no longer drinks alcohol. As needed pain medications and antiemetics. Cholelithiasis: Continue as above, suspect gallbladder pancreatitis. General surgery consulted for additional management. Hypertension: Hold oral medications at this time, give as needed antihypertensive. GERD: IV Protonix daily. DVT PPX: SCD Code status: Full Discharge Plan: Home Plan to discharge in: 72 Hours - Advance Directives Does patient have a Living Will: No Does patient have a Durable POA for Healthcare: No - Code Status/Comfort Care Code Status Assessed: Yes (Full code) Critical Care: No Time Spent Managing Pts Care (In Minutes): 70 <Stephen Vale - Last Filed: 01/17/22 20:55> Physician Review: Patient Assessed, Agree with Above Assessment and Plan <Abdi Serra - Last Filed: 01/18/22 14:10>
[2022-01-17] MEDS: D5 0.45 NS 1,000 ML IV SCH (21:08)
[2022-01-17] MEDS ORDERED: HYDRALAZINE HCL 20 MG/ML VIAL ONE (21:09)
[2022-01-17] MEDS ORDERED: D5 0.45 NS 1,000 ML IV ONE (21:10)
--- NOTE | 2022-01-17 21:55 | RAD REPORT ---
EXAM DESCRIPTION: CTAbdomen Pelvis W Contrast - 01/17/2022 9:42 pm CLINICAL HISTORY: Abdominal pain. Pancreatitis suspected COMPARISON: Abdomen Pelvis W Contrast dated 06/01/2021; Abdomen Pelvis W Contrast dated 04/13/20 19; CT ABD PELVIS W CONTRAST dated 11/23/2014 TECHNIQUE: Biphasic CT imaging of the abdomen and pelvis was performed with 100 ml non-ionic IV cont rast. All CT scans are performed using dose optimization technique as appropriate and may include automated exposure control or mA/KV adjustment according to patient size. FINDINGS: The lung bases are clear. Prominent diffuse fatty liver. Gallbladder is distended and contains several stones. The spleen, adre nal and kidneys are within limits. Mild inflammation is seen surrounding the pancreatic uncinate proc ess compatible with acute pancreatitis. No pancreatic necrosis, abscess or pseudocyst. No bowel obstruction, free air, free fluid or abscess. Mild sigmoid diverticulosis coli without diver ticulitis. The appendix is normal. No evidence of significant lymphadenopathy. Bilateral hip arthroplasty. IMPRESSION: Mild acute pancreatitis is present. Cholelithiasis.
[2022-01-17] MEDS: PIPER TAZO 3.375 GM in NA CHLORIDE 0.9% 100 ML IV SCH (23:32)
[2022-01-18] MEDS: PIPER TAZO 3.375 GM in NA CHLORIDE 0.9% 100 ML IV SCH ×3 (00:13→16:00)
[2022-01-18] MEDS ORDERED: PIPER TAZO 3.375 GM in NA CHLORIDE 0.9% 100 ML IV SCH ×2 (01:00→21:00)
[2022-01-18] MEDS: HYDROMORPHONE HCL 1 MG/ML INJ IV PRN ×3 (01:30→10:10)
[2022-01-18] MEDS: ONDANSETRON 4 MG/2 ML VIAL IV PRN ×3 (01:36→16:08)
[2022-01-18 05:34] LABS: Hematocrit 39.2 % (39.6-49.0); Lymphocytes % 7.4 % (15.3-44.8); MCV 96.7 fL (80-100); MPV 7.8 fL (7.6-11.3); RBC Red Blood Cell Count 4.05 M/uL (4.33-5.43)
[2022-01-18 05:52] LABS: Albumin 3.6 g/dL (3.4-5.0); Bilirubin Total 2.7 mg/dL (0.2-1.0); Potassium 3.5 mmol/L (3.5-5.1); Protein, Total 7.6 g/dL (6.4-8.2)
[2022-01-18] MEDS: D5 0.45 NS 1,000 ML IV SCH (06:16)
[2022-01-18] MEDS ORDERED: Ringers Lactate 1,000 ML IV SCH ×3 (07:00→22:00)
[2022-01-18] MEDS ORDERED: KCL 20 MEQ/100 mL IVPB 20 MEQ/100 ML BAG IV SCH (07:30)
[2022-01-18] MEDS ORDERED: PIPERACIL/TAZO 3.375 GM VIAL IV ONE (09:18)
[2022-01-18] MEDS ORDERED: NA CHLORIDE 0.9% 100 ML ONE (09:21)
[2022-01-18] MEDS ORDERED: Ringers Lactate 500 ML IV ONE (09:36)
[2022-01-18] MEDS ORDERED: HYDROMORPHONE HCL 2 MG/ML inj IV PRN (09:58)
[2022-01-18] MEDS: HYDROMORPHONE HCL 2 MG/ML inj IV PRN ×4 (12:41→21:22)
[2022-01-18] MEDS: Ringers Lactate 1,000 ML IV ONE ×2 (12:41→15:59)
--- NOTE | 2022-01-18 14:12 | P.PN ---
Subjective Date of Service: 01/18/22 Chief Complaint: Pancreatitis Subjective: No new changes No acute events since admission. He continues to report significant mid- epigastric pain. He states that his hydromorphone is working, but will wear off within 1-2 hours. Review of Systems 10-point ROS is otherwise unremarkable Gastrointestinal: Nausea, Abdominal Pain (mid-epigastric) Physical Examination - Vital Signs Temperature: 97.7 F Blood Pressure: 125/85 Pulse: 105 Respirations: 15 Pulse Ox (%): 93 - Physical Exam General: Alert, In no apparent distress, Oriented x3, Mild distress HEENT: Atraumatic, Other (mucous membranes dry), Sclerae nonicteric Neck: Supple, JVD not distended Respiratory: Clear to auscultation bilaterally, Normal air movement Cardiovascular: No edema, Regular rate/rhythm, Normal S1 S2, No gallops, No rubs, No murmurs Gastrointestinal: Hypoactive, No rebound, No guarding, Tenderness (mid- epigastric) Musculoskeletal: No clubbing Integumentary: No rashes Neurological: Normal speech, Normal affect - Studies Laboratory Data (last 24 hrs) 01/17/22 19:51: Triglycerides Cancelled, Cholesterol Cancelled, HDL Cholesterol Cancelled, Cholesterol/HDL Ratio Cancelled 01/17/22 14:00: Sodium 130 L, Potassium 3.9, BUN 14, Creatinine 1.56 H, Glucose 121 H, Total Bilirubin 3.4 H, AST 79 H, ALT 59, Alkaline Phosphatase 202 H, Triglycerides 177 H, Cholesterol 155, HDL Cholesterol 27 L, Cholesterol/HDL Ratio 5.74, Lipase 2322 H 01/17/22 14:00: WBC 12.0 H, Hgb 14.8, Hct 42.8, Plt Count 137 L Medications List Reviewed: Yes Assessment And Plan - Plan # Acute Gallstone Pancreatitis # Cholelithiasis # SIRS Criteria (Leukocytosis, Tachycardia) likely secondary to acute pancreatitis - no current source of infection He reports midepigastric pain consistent with acute pancreatitis. His initial lipase was elevated at 2322, and a CT abdomen and pelvis revealed "mild acute pancreatitis is present. Cholelithiasis." His calculated BISAP score is 1, which is suggestive of an increased mortality risk. - Gastroenterology consulted and Dr. Simeon notified - recommendations appreciated - General Surgery consulted and Dr. Shearer notified - recommendations appreciated - NPO for bowel rest - Lactated Ringers 200 mL/hour - Symptom management: - PRN hydromorphone, ondansetron - RUQ ultrasound = "Cholelithiasis and gallbladder sludge is present. No sonographic features of acute cholecystitis evident." - Continue empiric piperacillin-tazobactam for now - Lipid panel = TC 155, HDL 27, LDL 93, TG 177 # Hypertension # Gastroesophageal Reflux Disease - Hold home medications while NPO Abdi Serra M.D. Discharge Plan: Home Plan to discharge in: Greater than 2 days Physician Review: Patient Assessed, Agree with Above Assessment and Plan
[2022-01-18] MEDS: Ringers Lactate 1,000 ML IV SCH (21:25)
[2022-01-19] MEDS: HYDROMORPHONE HCL 2 MG/ML inj IV PRN ×7 (00:24→23:27)
[2022-01-19] MEDS: PIPER TAZO 3.375 GM in NA CHLORIDE 0.9% 100 ML IV SCH ×3 (00:28→16:57)
[2022-01-19] MEDS: Ringers Lactate 1,000 ML IV SCH ×3 (04:37→19:03)
[2022-01-19 05:40] LABS: Absolute Lymphocytes (CBC) 0.7 K/uL (0.7-4.9); Hematocrit 35.7 % (39.6-49.0); Lymphocytes % 6.8 % (15.3-44.8); MCV 99.3 fL (80-100); MPV 7.5 fL (7.6-11.3); RBC Red Blood Cell Count 3.59 M/uL (4.33-5.43)
[2022-01-19 05:51] LABS: Albumin 2.9 g/dL (3.4-5.0); Bilirubin Total 2.4 mg/dL (0.2-1.0); Potassium 3.7 mmol/L (3.5-5.1); Protein, Total 6.9 g/dL (6.4-8.2)
[2022-01-19] MEDS ORDERED: KCL 20 MEQ/100 mL IVPB 20 MEQ/100 ML BAG IV SCH (07:00)
--- NOTE | 2022-01-19 09:34 | EDPHYS ---
Physician Documentation [facility] Name: Terry Saenz Jr Age: 47 yrs Sex: Male : 1975 Arrival Date: 01/17/2022 Time: 12:28 Bed 13 Private MD: ED Physician Jet Bey HPI: 01/17 15:57 This 47 yrs old Male presents to ER via Ambulatory with complaints of Abdominal Pain. kb 15:57 The patient presents with abdominal pain in the upper abdomen. Onset: The kb symptoms/episode began/occurred 3 day(s) ago. The symptoms do not radiate. Associated signs and symptoms: Pertinent positives: nausea, Pertinent negatives: diarrhea, fever, vomiting. The symptoms are described as constant. Modifying factors: The symptoms are alleviated by nothing, the symptoms are aggravated by nothing. Severity of pain: At its worst the pain was moderate in the emergency department the pain is unchanged. The patient has experienced similar episodes in the past. The patient has not recently seen a physician. Historical: - Allergies: 14:16 No Known Drug Allergies; bp - Home Meds: 14:16 amlodipine oral [Active]; carvedilol Oral [Active]; lisinopril Oral [Active]; Prevacid bp Oral [Active]; - PMHx: 14:16 avascular necrosis; chronic back pain; Hypertension; Pancreatitis; bp - Immunization history:: Adult Immunizations unknown. - Social history:: Smoking status: Patient denies any tobacco usage or history of. ROS: 15:34 Constitutional: Negative for fever, chills, and weight loss. kb 15:34 Abdomen/GI: Positive for abdominal pain, nausea, Negative for vomiting, diarrhea. 15:34 All other systems are negative. Exam: 15:34 Constitutional: This is a well developed, well nourished patient who is awake, alert, kb and in no acute distress. Head/Face: Normocephalic, atraumatic. ENT: Moist Mucous membranes Cardiovascular: Regular rate and rhythm with a normal S1 and S2. No gallops, murmurs, or rubs. No pulse deficits. Respiratory: Respirations even and unlabored. No increased work of breathing. Talking in full sentences Skin: Warm, dry with normal turgor. Normal color. MS/ Extremity: Pulses equal, no cyanosis. Neurovascular intact. Full, normal range of motion. Neuro: Awake and alert, GCS 15, oriented to person, place, time, and situation. Moves all extremities. Normal gait. Psych: Awake, alert, with orientation to person, place and time. Behavior, mood, and affect are within normal limits. 15:34 Abdomen/GI: Inspection: abdomen appears normal, Bowel sounds: normal, in all quadrants, Palpation: soft, in all quadrants, moderate abdominal tenderness, in the right upper quadrant and left upper quadrant. Vital Signs: 12:50 BP 127 / 94; Pulse 95; Resp 19; Temp 98.2(T); Pulse Ox 99% ; Weight 117.93 kg; Height 6 briceno ft. 0 in. (182.88 cm); 14:18 BP 137 / 94; Pulse 91; Resp 16; Pulse Ox 100% ; bp 15:44 BP 144 / 99; Pulse 90; Resp 16; Pulse Ox 97% ; bp 17:17 BP 151 / 109; Pulse 93; Resp 16; Pulse Ox 97% ; bp 18:50 BP 149 / 115; Pulse 93; Resp 16; Pulse Ox 97% ; bp 19:08 BP 157 / 107; Pulse 94; Resp 17; Pulse Ox 97% on R/A; sm5 12:50 Body Mass Index 35.26 (117.93 kg, 182.88 cm) briceno MDM: 12:51 Patient medically screened. 15:34 Data reviewed: vital signs, nurses notes. Data interpreted: Pulse oximetry: on room air kb is 100 %. Interpretation: normal. Counseling: I had a detailed discussion with the patient and/or guardian regarding: the historical points, exam findings, and any diagnostic results supporting the discharge/admit diagnosis, lab results, radiology results, the need for further work-up and treatment in the hospital. Physician consultation: Terry Shearer MD was contacted at 15:34, regarding consult, patient's condition, and will see patient in inpatient room. 15:55 Physician consultation: Abdi Serra MD was contacted at 15:55, regarding admission, to the medical/surgical unit. patient's condition, and will see patient in ED. 01/17 12:54 Order name: CBC with Diff; Complete Time: 14:30 kb 01/17 12:54 Order name: CMP; Complete Time: 21:55 kb 01/17 12:54 Order name: Lipase; Complete Time: 21:55 kb 01/17 14:56 Order name: SARS RAPID; Complete Time: 16:49 kb 01/17 19:51 Order name: Lipid Profile la1 01/17 21:53 Order name: Lipid Profile; Complete Time: 21:55 EDMS 01/17 12:54 Order name: Abdomen Limited US; Complete Time: 13:41 kb 01/17 20:53 Order name: CT Abd/Pelvis - IV Contrast Only la1 01/17 21:57 Order name: CT; Complete Time: 21:59 EDMS 01/17 12:54 Order name: IV Saline Lock; Complete Time: 14:16 kb 01/17 12:54 Order name: Labs collected and sent; Complete Time: 14:16 kb Administered Medications: 14:00 Drug: NS 0.9% 1000 ml Route: IV; Rate: 1 bolus; Site: right antecubital; bp 17:18 Follow up: IV Status: Completed infusion; IV Intake: 1000ml bp 14:00 Drug: morphine 4 mg Route: IVP; Infused Over: 4 mins; Site: right antecubital; bp 17:18 Follow up: Response: No adverse reaction bp 14:00 Drug: Zofran (Ondansetron) 4 mg Route: IVP; Site: right antecubital; bp 17:18 Follow up: Response: No adverse reaction bp 15:30 Drug: Dilaudid (HYDROmorphone) 1 mg Route: IVP; Site: right antecubital; bp 17:18 Follow up: Response: Pain is decreased bp 15:30 Drug: NS 0.9% 1000 ml Route: IV; Rate: 125 ml/hr; Site: right antecubital; bp 19:35 Drug: Dilaudid (HYDROmorphone) 0.5 mg Route: IVP; Site: right antecubital; sm5 21:37 Follow up: Response: No adverse reaction; RASS: Alert and Calm (0) sm5 21:08 Drug: hydrALAZINE 10 mg Route: IVP; Site: right antecubital; sm5 22:17 Follow up: Response: No adverse reaction sm5 22:08 Drug: Dilaudid (HYDROmorphone) 1 mg Route: IVP; Site: right antecubital; sm5 22:17 Follow up: Response: No adverse reaction; RASS: Alert and Calm (0) sm5 Disposition: 01/18 19:48 Co-signature as Attending Physician, Jet Bey MD I agree with the assessment and rn plan of care. Attestation: The patient's history, exam findings, diagnostics, and a summary of any interventions or procedures was reviewed in detail with Zoe HOFFMANN. Disposition Summary: 01/17/22 15:56 Hospitalization Ordered Hospitalization Status: Inpatient Admission kb Provider: Abdi Serra [facility] kb Condition: Stable kb Problem: new kb Symptoms: are unchanged kb Bed/Room Type: Standard kb Room Assignment: 215(01/17/22 20:30) mw Diagnosis - Acute pancreatitis without necrosis or infection, unspecified kb - Other cholelithiasis without obstruction kb Forms: - Medication Reconciliation Form kb - SBAR form kb Signatures: Dispatcher [employer] EDZoe Beth FNP-C FNP-Ckb Webb, Martha, RN RN mw Nieto, Roman, MD MD rn Attema, Lee, FNP-C FNP-Dandre Miller RN RN Aggie Fernandes RN RN sm5 Corrections: (The following items were deleted from the chart) 01/17 20:30 15:56 kb mw
--- NOTE | 2022-01-19 09:34 | ER ---
Nurse's Notes [facility] Name: Terry Saenz Jr Age: 47 yrs Sex: Male : 1975 Arrival Date: 01/17/2022 Time: 12:28 Bed 13 Private MD: Diagnosis: Acute pancreatitis without necrosis or infection, unspecified;Other cholelithiasis without obstruction Presentation: 01/17 12:50 Chief complaint: Patient states: pt presented with abdominal pain x3day. Coronavirus briceno screen: Vaccine status: Patient reports being unvaccinated. Ebola Screen: Patient denies travel to an Ebola-affected area in the 21 days before illness onset. Initial Sepsis Screen: Does the patient meet any 2 criteria? HR > 90 bpm. Does the patient have a suspected source of infection? Yes: Acute abdominal pain. Risk Assessment: Do you want to hurt yourself or someone else?. Onset of symptoms was January 15, 2022. 12:50 Method Of Arrival: Ambulatory briceno 12:50 Acuity: SCOUT 3 briceno Triage Assessment: 14:00 General: Appears distressed, uncomfortable, Behavior is calm, cooperative, appropriate bp for age. Pain: Complains of pain in abdomen. EENT: No deficits noted. Neuro: No deficits noted. Cardiovascular: No deficits noted. Respiratory: No deficits noted. 14:00 GI: Reports upper abdominal pain. : No signs and/or symptoms were reported regarding bp the genitourinary system. Derm: No deficits noted. Musculoskeletal: No deficits noted. Historical: - Allergies: 14:16 No Known Drug Allergies; bp - Home Meds: 14:16 amlodipine oral [Active]; carvedilol Oral [Active]; lisinopril Oral [Active]; Prevacid bp Oral [Active]; - PMHx: 14:16 avascular necrosis; chronic back pain; Hypertension; Pancreatitis; bp - Immunization history:: Adult Immunizations unknown. - Social history:: Smoking status: Patient denies any tobacco usage or history of. Screenin:17 Abuse screen: Denies threats or abuse. Denies injuries from another. Nutritional bp screening: No deficits noted. Tuberculosis screening: No symptoms or risk factors identified. Fall Risk None identified. Assessment: 14:17 General: SEE TRIAGE NOTE. bp 15:44 Reassessment: No changes from previously documented assessment. Patient and/or family bp updated on plan of care and expected duration. Pain level reassessed. 17:17 Reassessment: No changes from previously documented assessment. Patient and/or family bp updated on plan of care and expected duration. Pain level reassessed. ADMIT INITIATED. 18:50 Reassessment: ADMIT IN PROCESS. bp 19:25 General: Appears in no apparent distress. Behavior is cooperative. Pain: Complains of sm5 pain in left upper quadrant and right upper quadrant and abdomen. Neuro: Level of Consciousness is awake, alert, obeys commands, Oriented to person, place, time, situation. Cardiovascular: Capillary refill < 3 seconds Patient's skin is warm and dry. Respiratory: Airway is patent Trachea midline Respiratory effort is even, unlabored. GI: Bowel sounds present X 4 quads. Abd is soft. Vital Signs: 12:50 BP 127 / 94; Pulse 95; Resp 19; Temp 98.2(T); Pulse Ox 99% ; Weight 117.93 kg; Height 6 briceno ft. 0 in. (182.88 cm); 14:18 BP 137 / 94; Pulse 91; Resp 16; Pulse Ox 100% ; bp 15:44 BP 144 / 99; Pulse 90; Resp 16; Pulse Ox 97% ; bp 17:17 BP 151 / 109; Pulse 93; Resp 16; Pulse Ox 97% ; bp 18:50 BP 149 / 115; Pulse 93; Resp 16; Pulse Ox 97% ; bp 19:08 BP 157 / 107; Pulse 94; Resp 17; Pulse Ox 97% on R/A; sm5 12:50 Body Mass Index 35.26 (117.93 kg, 182.88 cm) briceno ED Course: 12:28 Patient arrived in ED. am2 12:51 Zoe Berman FNP-C is PHCP. kb 12:51 Jet Bey MD is Attending Physician. kb 12:51 Triage completed. briceno 13:22 Abdomen Limited US In Process Unspecified. EDMS 13:44 Dandre Lloyd, DMITRI is Primary Nurse. bp 14:00 Inserted saline lock: 20 gauge in right antecubital area, using aseptic technique. bp Blood collected. 14:00 Arm band placed on. bp 14:17 Patient has correct armband on for positive identification. Bed in low position. Call bp light in reach. Side rails up X2. 15:55 Abdi Serra MD is Hospitalizing Provider. kb 19:17 Primary Nurse role handed off by Dandre Lloyd, DMITRI mw2 19:33 Aggie Blancas, DMITRI is Primary Nurse. 5 22:16 No provider procedures requiring assistance completed. Patient admitted, IV remains in [address] Administered Medications: 14:00 Drug: NS 0.9% 1000 ml Route: IV; Rate: 1 bolus; Site: right antecubital; bp 17:18 Follow up: IV Status: Completed infusion; IV Intake: 1000ml bp 14:00 Drug: morphine 4 mg Route: IVP; Infused Over: 4 mins; Site: right antecubital; bp 17:18 Follow up: Response: No adverse reaction bp 14:00 Drug: Zofran (Ondansetron) 4 mg Route: IVP; Site: right antecubital; bp 17:18 Follow up: Response: No adverse reaction bp 15:30 Drug: Dilaudid (HYDROmorphone) 1 mg Route: IVP; Site: right antecubital; bp 17:18 Follow up: Response: Pain is decreased bp 15:30 Drug: NS 0.9% 1000 ml Route: IV; Rate: 125 ml/hr; Site: right antecubital; bp 19:35 Drug: Dilaudid (HYDROmorphone) 0.5 mg Route: IVP; Site: right antecubital; 5 21:37 Follow up: Response: No adverse reaction; RASS: Alert and Calm (0) 5 21:08 Drug: hydrALAZINE 10 mg Route: IVP; Site: right antecubital; sm5 22:17 Follow up: Response: No adverse reaction 5 22:08 Drug: Dilaudid (HYDROmorphone) 1 mg Route: IVP; Site: right antecubital; sm5 22:17 Follow up: Response: No adverse reaction; RASS: Alert and Calm (0) [facility] Medication: 14:17 VIS not applicable for this client. bp Intake: 17:18 IV: 1000ml; Total: 1000ml. bp Outcome: 15:56 Decision to Hospitalize by Provider. kb 22:17 Admitted to Med/surg accompanied by nurse, via wheelchair, with chart. 5 22:17 Condition: stable 22:17 Instructed on the need for admit. 22:32 Patient left the ED. 5 Signatures: Dispatcher [employer] EDMS Zoe Berman, SUPERVISOR PROCESS TESTING-C SUPERVISOR PROCESS TESTING-Karen De La Cruz am2 Dandre Lloyd, RN RN Thierno Cerda 2 Aggie Blancas RN RN 5 Lucita-StageChioma melendez RN RN briceno
[2022-01-19] MEDS: ONDANSETRON 4 MG/2 ML VIAL IV PRN (10:15)
--- NOTE | 2022-01-19 13:10 | P.PN ---
Subjective Date of Service: 01/19/22 Chief Complaint: Pancreatitis No acute events overnight. He reports abdominal pain is gradually improving, but still present. Denies any nausea or vomiting. Review of Systems 10-point ROS is otherwise unremarkable Gastrointestinal: Abdominal Pain Physical Examination - Vital Signs Temperature: 97.7 F Blood Pressure: 132/80 Pulse: 104 Respirations: 15 Pulse Ox (%): 93 - Studies Medications List Reviewed: Yes Assessment And Plan - Plan - Physical Exam General: Alert, In no apparent distress, Oriented x3, Mild distress HEENT: Atraumatic, Mucous membranes moist, Sclerae nonicteric Neck: Supple, JVD not distended Respiratory: Clear to auscultation bilaterally, Normal air movement Cardiovascular: No edema, Regular rate/rhythm, Normal S1 S2, No gallops, No rubs, No murmurs Gastrointestinal: Hypoactive, No rebound, No guarding, Tenderness (mid- epigastric) Musculoskeletal: No clubbing Integumentary: No rashes Neurological: Normal speech, Normal affect # Acute Gallstone Pancreatitis # Cholelithiasis # SIRS Criteria (Leukocytosis, Tachycardia) likely secondary to acute pancreatitis - no current source of infection He reports midepigastric pain consistent with acute pancreatitis. His initial lipase was elevated at 2322, and a CT abdomen and pelvis revealed "mild acute pancreatitis is present. Cholelithiasis." His calculated BISAP score is 1, which is suggestive of an increased mortality risk. - Gastroenterology consulted and Dr. Simeon notified - recommendations appreciated - General Surgery consulted and Dr. Shearer notified - recommendations appreciated - NPO for bowel rest - Lactated Ringers 150 mL/hour - Symptom management: - PRN hydromorphone, ondansetron - RUQ ultrasound = "Cholelithiasis and gallbladder sludge is present. No sonographic features of acute cholecystitis evident." - Continue empiric piperacillin-tazobactam for now - Lipid panel = TC 155, HDL 27, LDL 93, TG 177 - Anticipate he will require cholecystectomy prior to discharge, but he is currently making a decision. # Hypertension # Gastroesophageal Reflux Disease - Hold home medications while NPO Abdi Serra M.D. Physician Review: Patient Assessed, Agree with Above Assessment and Plan
--- NOTE | 2022-01-19 15:32 | P.CNS ---
Date of Consult: 01/18/22 PC: This 47-year-old male presents the emergency room with severe abdominal pain for diagnosis and treatment HPC: This patient apparently ate some barbecue over the weekend and had some beers with it. Started having severe right upper quadrant abdominal pain. Has had previous episodes like this. PSHx: Bilateral hip surgeries, back surgery PMHx: Acute pancreatitis, had an episode earlier in the year. At that time was also found to have gallstones. He was scheduled to have an elective procedure done as an outpatient in September. Was unable to keep the appointment. Social Hx: No known allergies Sys R: No cough, wheeze, shortness of breath. No chest pain or palpitations. States he has been doing relatively well at home with his abdominal discomfort. O/E: Awake alert uncomfortable vital signs however are stable HEENT: Not clinically jaundiced Chest: Air entry equal bilaterally Abd: Abdomen has some mild epigastric to right upper quadrant tenderness, no guarding or rebound Brandon: Intact Data: Elevated white cell count, elevated lipase Impression: Acute pancreatitis most likely gallstone Plan: This patient, was admitted on Monday night. I had anticipated doing a surgery Monday. In my experience operating early on these patients is safe, and allows us to also further elaborate the extrahepatic biliary tree. As well as being therapeutic for the gallstones, also allows us to see whether or not an ERCP is indicated. I had wanted to take the patient to the operating room yesterday. I told him after 48 hours I was not as comfortable taking him to the OR because of the increased inflammation, stickiness of the surrounding structures, and possibility of injury to extrahepatic biliary tree. He however wants to discuss with his . I explained to him that I had an OR crew available today however if we did not do it today I would most likely revert to the weight a few weeks before returning to the OR.
--- NOTE | 2022-01-19 15:34 | P.PN ---
Date of Service: 01/19/22 S: Patient states he feels much better today. Says he does not want to do the surgery at this time. O: Vital signs are stable, patient looks much more comfortable today. Lab work is improving. A: Surgically stable, pancreatitis appears to be settling down. P: I had planned on doing his surgery early in his admission. He he was unable to make a decision yesterday about whether he wanted to have the surgery. Today I feel we are outside my comfort of window for doing it. I would recommend at this point that we wait a few weeks until things settle down, then we can discuss surgical options at that time. I have explained to the patient my decision. He is more than welcome to follow-up with me, he had previously seen Dr. Gama, or any other surgeon of his choice. Anticipate gradual resolution of his pain with increase in his diet, and pain control.
[2022-01-20] MEDS: PIPER TAZO 3.375 GM in NA CHLORIDE 0.9% 100 ML IV SCH ×2 (00:16→08:02)
[2022-01-20] MEDS: Ringers Lactate 1,000 ML IV SCH ×5 (01:30→22:29)
[2022-01-20 01:52] VITALS: BMI 35.2
[2022-01-20] MEDS: HYDROMORPHONE HCL 2 MG/ML inj IV PRN ×5 (02:17→22:37)
[2022-01-20] MEDS: ONDANSETRON 4 MG/2 ML VIAL IV PRN ×4 (02:17→22:36)
[2022-01-20 04:01] LABS: Absolute Lymphocytes (CBC) 0.8 K/uL (0.7-4.9); Hematocrit 34.3 % (39.6-49.0); MCV 98.1 fL (80-100)
[2022-01-20 04:14] LABS: Albumin 2.9 g/dL (3.4-5.0); Bilirubin Total 2.8 mg/dL (0.2-1.0); Potassium 3.7 mmol/L (3.5-5.1); Protein, Total 7.3 g/dL (6.4-8.2)
[2022-01-20] MEDS ORDERED: POTASSIUM CL SA 10 MEQ TAB PO ONE (09:00)
--- NOTE | 2022-01-20 13:49 | P.PN ---
Subjective Date of Service: 01/20/22 Chief Complaint: Pancreatitis Subjective: Improving This morning, he reports that his pain has improved significantly. He states that the pain was 10/10 in severity yesterday, and this morning it is 8/10. He was started on a clear liquid diet by General Surgery overnight, and tolerated this without any issues. He spoke with the general surgeon yesterday, and decided that he would like to delay surgery for several weeks. He continues to use the IV hydromorphone regularly, and we will try to wean this off over the next day or so. He is in agreement with this plan. Review of Systems 10-point ROS is otherwise unremarkable Gastrointestinal: Nausea, Abdominal Pain Physical Examination - Vital Signs Temperature: 98.2 F Blood Pressure: 121/94 Pulse: 107 Respirations: 20 Pulse Ox (%): 97 - Studies Medications List Reviewed: Yes Assessment And Plan - Plan - Physical Exam General: Alert, In no apparent distress, Oriented x3, Mild distress HEENT: Atraumatic, Mucous membranes moist, Sclerae nonicteric Neck: Supple, JVD not distended Respiratory: Clear to auscultation bilaterally, Normal air movement Cardiovascular: No edema, Regular rate/rhythm, Normal S1 S2, No gallops, No rubs, No murmurs Gastrointestinal: Hypoactive, No rebound, No guarding, Tenderness (mid- epigastric, improved compared to yesterday) Musculoskeletal: No clubbing Integumentary: No rashes Neurological: Normal speech, Normal affect # Acute Gallstone Pancreatitis # Cholelithiasis # SIRS Criteria (Leukocytosis, Tachycardia) likely secondary to acute pancreatitis - no current source of infection He reports midepigastric pain consistent with acute pancreatitis. His initial lipase was elevated at 2322, and a CT abdomen and pelvis revealed "mild acute pancreatitis is present. Cholelithiasis." His calculated BISAP score was 1, which is suggestive of an increased mortality risk. - Gastroenterology consulted and Dr. Simeon notified - recommendations appreciated - General Surgery consulted and Dr. Shearer notified - recommendations appreciated - On clear liquid diet - advance as tolerated - Lactated Ringers 150 mL/hour -> 125 mL/hr - Symptom management: - PRN hydromorphone (will reduce frequency from q3h to q6h today), ondansetron - RUQ ultrasound = "Cholelithiasis and gallbladder sludge is present. No sonographic features of acute cholecystitis evident." - Discontinue piperacillin-tazobactam at this time - Lipid panel = TC 155, HDL 27, LDL 93, TG 177 - He was offered a cholecystectomy while admitted; however, he has decided to postpone this to the outpatient setting. # Hypertension # Gastroesophageal Reflux Disease - Resume home medications as tolerated Abdi Serra M.D. Discharge Plan: Home Plan to discharge in: 48 Hours Physician Review: Patient Assessed, Agree with Above Assessment and Plan
[2022-01-20] MEDS ORDERED: ACETAMINOPHEN 325 MG TABLET PO PRN (13:53)
[2022-01-21] MEDS: ONDANSETRON 4 MG/2 ML VIAL IV PRN ×2 (04:41→10:33)
[2022-01-21] MEDS: HYDROMORPHONE HCL 2 MG/ML inj IV PRN ×2 (04:42→10:33)
[2022-01-21] MEDS: Ringers Lactate 1,000 ML IV SCH ×2 (05:51→13:44)
[2022-01-21 06:43] LABS: Potassium 3.6 mmol/L (3.5-5.1)
[2022-01-21] MEDS ORDERED: POTASSIUM CL SA 10 MEQ TAB PO ONE (09:00)
--- NOTE | 2022-01-21 14:55 | P.PN ---
Subjective Date of Service: 01/21/22 Chief Complaint: Pancreatitis Subjective: Improving No acute events overnight. He reports that his pain remains anywhere from a 5- 7/10 in severity. He tolerated a clear liquid diet and would like to advance his diet today. Review of Systems 10-point ROS is otherwise unremarkable Gastrointestinal: Abdominal Pain Physical Examination - Vital Signs Temperature: 97.7 F Blood Pressure: 126/79 Pulse: 87 Respirations: 18 Pulse Ox (%): 96 - Studies Medications List Reviewed: Yes Assessment And Plan - Plan - Physical Exam General: Alert, In no apparent distress, Oriented x3, Mild distress HEENT: Atraumatic, Mucous membranes moist, Sclerae nonicteric Neck: Supple, JVD not distended Respiratory: Clear to auscultation bilaterally, Normal air movement Cardiovascular: No edema, Regular rate/rhythm, Normal S1 S2, No gallops, No rubs, No murmurs Gastrointestinal: Hypoactive, No rebound, No guarding, Tenderness (minimal mid- epigastric, improved compared to yesterday) Musculoskeletal: No clubbing Integumentary: No rashes Neurological: Normal speech, Normal affect # Acute Gallstone Pancreatitis # Cholelithiasis # SIRS Criteria (Leukocytosis, Tachycardia) likely secondary to acute pancreatitis - no current source of infection He reports midepigastric pain consistent with acute pancreatitis. His initial lipase was elevated at 2322, and a CT abdomen and pelvis revealed "mild acute pancreatitis is present. Cholelithiasis." His calculated BISAP score was 1, whi ch is suggestive of an increased mortality risk. - Gastroenterology consulted and Dr. Simeon notified - recommendations appreciated - General Surgery consulted and Dr. Shearer notified - recommendations appreciated - Both consultants cleared for discharge when tolerating regular diet - On clear liquid diet - advance as tolerated - Lactated Ringers 125 mL/hour -> 75 mL/hr - Symptom management: - PRN acetaminophen, hydrocodone-acetaminophen (switched hydromorphone), ondansetron - RUQ ultrasound = "Cholelithiasis and gallbladder sludge is present. No sonographic features of acute cholecystitis evident." - Lipid panel = TC 155, HDL 27, LDL 93, TG 177 - He was offered a cholecystectomy while admitted; however, he has decided to postpone this to the outpatient setting. # Hypertension # Gastroesophageal Reflux Disease - Resume home medications as tolerated Abdi Serra M.D. Discharge Plan: Home Plan to discharge in: 24 Hours
[2022-01-21] MEDS ORDERED: Ringers Lactate 1,000 ML IV SCH (14:56)
[2022-01-21] MEDS: HYDROCODONE/APAP 5/325 MG TAB PO PRN ×2 (15:30→23:47)
[2022-01-21] MEDS ORDERED: ENOXAPARIN 40 MG/0.4 ML SQ SCH (17:00)
[2022-01-22 04:05] LABS: Potassium 3.7 mmol/L (3.5-5.1)
[2022-01-22] MEDS: HYDROCODONE/APAP 5/325 MG TAB PO PRN (07:28)
[2022-01-22 07:52] VITALS: O2SAT 95
--- NOTE | 2022-01-22 07:55 | P.DS ---
Admission Date: 01/17/22 Discharge Date: 01/22/22 Disposition: ROUTINE DISCHARGE Discharge Condition: GOOD Reason for Admission: Pancreatitis Consultations: 1. Gastroenterology 2. General Surgery Hospital Course: DIAGNOSES: # Acute Gallstone Pancreatitis # Cholelithiasis # SIRS Criteria (Leukocytosis, Tachycardia) likely secondary to acute pancreatitis - no current source of infection # Hypertension # Gastroesophageal Reflux Disease # Non-Alcoholic Fatty Liver Disease HOSPITAL COURSE: Mr. Terry SaenzJrTory is a pleasant 47-year-old male with a past medical history significant for cholelithiasis, hypertension, and gastroesophageal reflux disease who was admitted to the [facility] on 01/17/2022 for abdominal pain. Upon further evaluation, he was found to have acute gallstone pancreatitis. He was admitted to the Medicine service for further evaluation. He had a CT abdomen and pelvis revealing "mild acute pancreatitis is present. Cholelithiasis" as well as a RUQ ultrasound revealing, "cholelithiasis and gallbladder sludge is present. No sonographic features of acute cholecystitis evident."" He was treated with bowel rest, IV fluids, and symptomatic management. Over the course of his hospitalization, his abdominal pain improved significantly and he was able to tolerate a regular diet without any issues. Of note, he was offered a cholecystectomy while hospitalized; however, he decided to postpone this procedure. It was advised that he follow-up with General Surgery to schedule an outpatient cholecystectomy. He states that he is unsure if he would like to see Dr. Shearer or Dr. Gama. I advised that he schedule an appointment with whichever surgeon he feels most comfortable with. On 01/22/2022, he was seen on morning rounds and deemed medically stable for discharge. He was discharged with instructions to schedule follow-up appointments with his PCP in 3-5 days and General Surgery in 3-5 days. He was given the opportunity to ask questions and reported no further questions. Furthermore, all questions were answered to the best of my ability. Today, I personally spent 20 minutes on his case, of which greater than 50% of the time was spent in patient education, counseling, and coordination of care as described above. - Physical Exam General: Alert, In no apparent distress, Oriented x3 HEENT: Atraumatic, Mucous membranes moist, Sclerae nonicteric Neck: Supple, JVD not distended Respiratory: Clear to auscultation bilaterally, Normal air movement Cardiovascular: No edema, Regular rate/rhythm, Normal S1 S2, No gallops, No rubs, No murmurs Gastrointestinal: Hypoactive, No rebound, No guarding, No tenderness Musculoskeletal: No clubbing Integumentary: No rashes Neurological: Normal speech, Normal affect Vital Signs/Physical Exam: Temp Pulse Resp BP Pulse Ox 98.0 F 94 H 18 114/84 97 01/22/22 04:00 01/22/22 04:00 01/22/22 07:28 01/22/22 04:00 01/22/22 07:28 Laboratory Data at Discharge: WBC 8.1 K/uL (4.3-10.9) D 01/20/22 03:38 Hgb 11.6 g/dL (13.6-17.9) L 01/20/22 03:38 Hct 34.3 % (39.6-49.0) L 01/20/22 03:38 Plt Count 146 K/uL (152-406) L 01/20/22 03:38 Sodium 133 mmol/L (136-145) L 01/22/22 03:26 Potassium 3.7 mmol/L (3.5-5.1) 01/22/22 03:26 BUN 4 mg/dL (7-18) L 01/22/22 03:26 Creatinine 0.62 mg/dL (0.55-1.3) 01/22/22 03:26 Glucose 112 mg/dL (74-106) H 01/22/22 03:26 Total Bilirubin 2.8 mg/dL (0.2-1.0) H 01/20/22 03:38 AST 113 U/L (15-37) H 01/20/22 03:38 ALT 56 U/L (12-78) 01/20/22 03:38 Alkaline Phosphatase 254 U/L (45-117) H D 01/20/22 03:38 Triglycerides Cancelled 01/17/22 19:51 Cholesterol Cancelled 01/17/22 19:51 HDL Cholesterol Cancelled 01/17/22 19:51 Cholesterol/HDL Ratio Cancelled 01/17/22 19:51 Lipase 207 U/L (73-393) 01/20/22 03:38 Home Medications: Amlodipine [Norvasc*] 10 mg PO DAILY 01/18/22 Lansoprazole [Prevacid 24Hr] 15 mg PO DAILY 01/18/22 carvediloL [Coreg*] 12.5 mg PO BID 01/18/22 Physician Discharge Instructions: 1. Please schedule a follow-up with your PCP in 3-5 days 2. Please schedule a follow-up with General Surgery (Dr. Shearer or Dr. Gama) in 3-5 days to schedule your gallbladder removal surgery (cholecystectomy) Diet: Regular Activity: Ad kath Followup: NONE,NONE [Primary Care Provider] - Nghia Gama MD [ACTIVE - CAN ADMIT] - Terry Shearer MD [ACTIVE - CAN ADMIT] - Time spent managing pt's care (in minutes): 20
[2022-01-22] MEDS ORDERED: POTASSIUM CL SA 10 MEQ TAB PO ONE (09:00)
[2022-01-22 09:02] VITALS: BP 125/76; TEMP 97.3
== END 2022-01-22 09:28 | disposition home or self-care (01) | DRG 440 ==
LOC: ER 12:25 → ERHOLD 19:58 → 2ND 21:34
PROVIDERS: ADMIT Internal Medicine; ATTEND Internal Medicine
DX: K85.10 Biliary acute pancreatitis without necrosis or infection (principal); K80.20 Calculus of gallbladder without cholecystitis without obstruction; I10 Essential (primary) hypertension; K21.9 Gastro-esophageal reflux disease without esophagitis; K76.0 Fatty (change of) liver, not elsewhere classified; Z87.891 Personal history of nicotine dependence; Z20.822 Contact with and (suspected) exposure to COVID-19
CPT/HCPCS: 36415; 74177; 76705; 80048; 80053; 80061; 83690; 85025; 87811; 96361; 96374; 96375; 99285; J0360; J1170; J1650; J2405; J2543; J3480; J7030; J7120; J7799; Q9967

== ENCOUNTER 2022-05-31 14:05 | Inpatient (IN) | payer BC ==
[2022-05-31] MEDS ORDERED: NA CHLORIDE 0.9% 1,000 ML ONE ×2 (14:49→17:34)
[2022-05-31] MEDS ORDERED: MORPHINE 4 MG/ML SYR ONE (14:49)
[2022-05-31] MEDS ORDERED: ONDANSETRON 4 MG/2 ML VIAL ONE (14:49)
[2022-05-31 14:56] LABS: Absolute Lymphocytes (CBC) 0.6 K/uL (0.7-4.9); Hematocrit 33.9 % (39.6-49.0); Lymphocytes % 7.7 % (15.3-44.8); MCV 98.8 fL (80-100); RBC Red Blood Cell Count 3.43 M/uL (4.33-5.43)
[2022-05-31] MEDS ORDERED: FAMOTIDINE 20 MG/2 ML VIAL IV ONE (14:59)
--- NOTE | 2022-05-31 15:12 | RAD REPORT ---
EXAM DESCRIPTION: US - Abdomen Exam Limited - 05/31/2022 2:42 pm CLINICAL HISTORY: EPIGASTRIC PAIN COMPARISON: Abdomen Exam Limited dated 01/17/2022 FINDINGS: The gallbladder demonstrates extensive sludge and stones. No pericholecystic fluid or gall bladder wall thickening. The common bile duct is normal measuring 4-5 mm.. The liver demonstrates no findings of intrahepatic biliary dilatation. IMPRESSION: Extensive gallbladder sludge and stones.
[2022-05-31 15:41] LABS: Albumin 3.5 g/dL (3.4-5.0); Bilirubin Total 3.1 mg/dL (0.2-1.0); Potassium 3.6 mmol/L (3.5-5.1); Protein, Total 7.5 g/dL (6.4-8.2)
--- NOTE | 2022-05-31 16:29 | EDPHYS ---
Physician Documentation [facility] Name: Terry Saenz Jr Age: 47 yrs Sex: Male : 1975 Arrival Date: 05/31/2022 Time: 14:06 Bed 20 Private MD: ED Physician Marcus العراقي HPI: 05/31 14:30 This 47 yrs old Male presents to ER via Unassigned with complaints of Abdominal Pain. ms3 14:30 The patient presents with abdominal pain in the epigastric area. Onset: The ms3 symptoms/episode began/occurred 4 day(s) ago. The symptoms do not radiate. Associated signs and symptoms: Pertinent negatives: nausea, vomiting, and diarrhea. The symptoms are described as Throbbing. Modifying factors: The symptoms are alleviated by nothing, the symptoms are aggravated by nothing. Severity of pain: At its worst the pain was severe in the emergency department the pain is unchanged is a 10 / 10. Historical: - Allergies: 15:47 No Known Allergies; ph - PMHx: 14:32 avascular necrosis; chronic back pain; Hypertension; Pancreatitis; jh5 - Immunization history:: Adult Immunizations up to date. - Social history:: Smoking status: Patient denies any tobacco usage or history of. ROS: 14:30 Constitutional: Negative for fever, and chills. Neck: Negative for injury, pain, and ms3 swelling, Cardiovascular: Negative for chest pain, and palpitations. Respiratory: Negative for shortness of breath, cough, wheezing, and pleuritic chest pain, MS/Extremity: Negative for injury and deformity, Skin: Negative for injury, rash, and discoloration. 14:30 Abdomen/GI: Positive for abdominal pain, Negative for nausea, vomiting, and diarrhea. 14:30 All other systems are negative. Exam: 14:30 Constitutional: This is a well developed, well nourished patient who is awake, alert, ms3 and in no acute distress. Head/Face: Normocephalic, atraumatic. Chest/axilla: Normal chest wall appearance and motion. Nontender with no deformity. Cardiovascular: Regular rate and rhythm with a normal S1 and S2. No gallops, murmurs, or rubs. Normal PMI, no JVD. No pulse deficits. Respiratory: Lungs have equal breath sounds bilaterally, clear to auscultation and percussion. No rales, rhonchi or wheezes noted. No increased work of breathing, no retractions or nasal flaring. Skin: Warm, dry with normal turgor. Normal color with no rashes, no lesions, and no evidence of cellulitis. MS/ Extremity: Pulses equal, no cyanosis. Neurovascular intact. Full, normal range of motion. 14:30 Abdomen/GI: Inspection: abdomen appears normal, Bowel sounds: normal, Palpation: severe abdominal tenderness, in the right upper quadrant. Vital Signs: 14:30 BP 115 / 76; Pulse 93; Resp 18; Temp 98.6; Pulse Ox 94% ; Weight 108.86 kg; Height 5 jh5 ft. 9 in. (175.26 cm); Pain 10/10; 14:30 Body Mass Index 35.44 (108.86 kg, 175.26 cm) 5 MDM: 14:20 Patient medically screened. ms3 14:30 Differential diagnosis: cholecystitis, Cholelithiasis, non-specific abd pain, ms3 pancreatitis. 16:29 Data reviewed: vital signs, nurses notes, lab test result(s), radiologic studies, ms3 ultrasound, and as a result, I will admit patient. Counseling: I had a detailed discussion with the patient and/or guardian regarding: the historical points, exam findings, and any diagnostic results supporting the discharge/admit diagnosis, lab results, radiology results, the need for further work-up and treatment in the hospital. ED course: Discussed case with Dr Shearer and he will consult. Will need GI for possible ERCP. Discussed case with Dr Callahan and he would like MRCP, Direct Bili, Indirect Bili, Pt, PTT, MRCP. Discussed case with Dr Villar and he will contact Dr Callahan prior to admission.. 05/31 14:24 Order name: CBC with Diff; Complete Time: 15:32 ms3 05/31 14:24 Order name: CMP ms3 05/31 14:24 Order name: Lipase ms3 05/31 14:24 Order name: Urine Microscopic Only ms3 05/31 16:27 Order name: Bilirubin, Direct ms3 05/31 16:28 Order name: PT-INR ms3 05/31 16:28 Order name: Ptt, Activated ms3 05/31 16:29 Order name: Bilirubin Direct EDMS 05/31 16:31 Order name: SARS RAPID ms3 05/31 17:08 Order name: Lipase EDMS 05/31 17:08 Order name: Lipase EDMS 05/31 17:13 Order name: T4 Free EDMS 05/31 17:13 Order name: Thyroid Stimulating Hormone EDMS 05/31 17:13 Order name: Urinalysis EDMS 05/31 14:24 Order name: Abdomen Limited US; Complete Time: 15:32 ms3 05/31 16:27 Order name: Cholangiogram EDMS 05/31 17:13 Order name: Basic Metabolic Panel EDMS 05/31 17:13 Order name: Basic Metabolic Panel EDMS 05/31 17:13 Order name: CBC with Automated Diff EDMS 05/31 17:13 Order name: CBC with Automated Diff EDMS 05/31 18:35 Order name: Lipid Profile EDMS 05/31 18:38 Order name: Hemoglobin A1c EDMS 05/31 18:55 Order name: Alcohol Serum/Plasma EDMS 05/31 20:23 Order name: Bilirubin Direct EDMS 05/31 20:23 Order name: T4 Free EDMS 05/31 20:23 Order name: Thyroid Stimulating Hormone EDMS 06/01 00:21 Order name: Urine Dipstick-Ancillary EDMS 05/31 14:24 Order name: IV Saline Lock; Complete Time: 14:54 ms3 05/31 14:24 Order name: Labs collected and sent; Complete Time: 14:54 ms3 05/31 14:24 Order name: Urine Dipstick-Ancillary (obtain specimen); Complete Time: 00:14 ms3 05/31 17:11 Order name: NPO EDMS Administered Medications: 14:55 Drug: NS 0.9% 1000 ml Route: IV; Rate: 1 bolus; Site: right antecubital; jh5 15:37 Follow up: IV Status: Completed infusion; IV Intake: 1000ml ss 14:55 Drug: Zofran (Ondansetron) 4 mg Route: IVP; Site: right antecubital; jh5 19:27 Follow up: Response: No adverse reaction ph 14:55 Drug: morphine 4 mg Route: IVP; Infused Over: 4 mins; Site: right antecubital; jh5 17:00 Follow up: Response: No adverse reaction; Pain is unchanged, physician notified ph 14:58 Drug: Pepcid (famotidine) 20 mg Route: IVP; Site: right antecubital; jh5 19:26 Follow up: Response: No adverse reaction ph 17:42 Drug: Dilaudid (HYDROmorphone) 1 mg Route: IVP; Site: right antecubital; ph 19:26 Follow up: Response: No adverse reaction; Pain is decreased ph 17:42 Drug: NS 0.9% 1000 ml Route: IV; Rate: 125 ml/hr; Site: right antecubital; ph 19:26 Follow up: IV Status: Infusion continued upon admission ph Disposition Summary: 05/31/22 16:29 Hospitalization Ordered Hospitalization Status: Inpatient Admission ms3 Provider: José Villar ms3 Condition: Stable ms3 Problem: new ms3 Symptoms: are unchanged ms3 Bed/Room Type: Standard ms3 Location: Telemetry/MedSurg (Inpatient)(06/01/22 11:01) dw Room Assignment: [facility] [place](06/01/22 11:01) Diagnosis - Biliary acute pancreatitis ms3 - Upper abdominal pain, unspecified ms3 - Other cholelithiasis with obstruction ms3 Forms: - Medication Reconciliation Form ms3 - SBAR form ms3 Signatures: Dispatcher [employer] Lexy Rizo RN RN dw Hall, Patricia RN Genevieve Barry ph RN Marcus Rodgers DO DO ms3 Coreen Spears RN RN jh5 Tawnya Romero RN ss Corrections: (The following items were deleted from the chart) 20:49 16:29 Telemetry/MedSurg (Inpatient) ms3 cg 20:49 16:29 ms3 cg 06/01 11:01 05/31 20:49 [facility] ER HOLD cg dw 06/01 11:01 05/31 20:49 ERHOLD- cg dw
--- NOTE | 2022-05-31 16:29 | ER ---
Nurse's Notes [facility] Name: Terry Saenz Jr Age: 47 yrs Sex: Male : 1975 Arrival Date: 05/31/2022 Time: 14:06 Bed 20 Private MD: Diagnosis: Biliary acute pancreatitis;Upper abdominal pain, unspecified;Other cholelithiasis with obstruction Presentation: 05/31 14:30 Chief complaint: Patient states: epigastic pain; feels like when he had pancreatitis 2 jh5 months ago. Coronavirus screen: Vaccine status: Patient reports being unvaccinated. Client denies travel out of the [place] in the last 14 days. Ebola Screen: Patient negative for fever greater than or equal to 101.5 degrees Fahrenheit, and additional compatible Ebola Virus Disease symptoms Patient denies exposure to infectious person. Patient denies travel to an Ebola-affected area in the 21 days before illness onset. Initial Sepsis Screen: Does the patient meet any 2 criteria? No. Patient's initial sepsis screen is negative. Does the patient have a suspected source of infection? No. Patient's initial sepsis screen is negative. Risk Assessment: Do you want to hurt yourself or someone else? Patient reports no desire to harm self or others. 14:30 Method Of Arrival: Ambulatory [facility] 14:30 Acuity: SCOUT 3 5 19:25 Onset of symptoms. Triage Assessment: 14:32 General: Appears uncomfortable, Behavior is calm, cooperative, appropriate for age. jh5 Pain: Complains of pain in abdomen. GI: Reports lower abdominal pain, upper abdominal pain. Historical: - Allergies: 15:47 No Known Allergies; ph - PMHx: 14:32 avascular necrosis; chronic back pain; Hypertension; Pancreatitis; jh5 - Immunization history:: Adult Immunizations up to date. - Social history:: Smoking status: Patient denies any tobacco usage or history of. Screenin:[facility] ED Fall Risk Assessment (Adult) History of falling in the last 3 months, ph including since admission No falls in past 3 months (0 pts) Confusion or Disorientation No (0 pts) Intoxicated or Sedated No (0 pts) Impaired Gait No (0 pts) Mobility Assist Device Used No (0 pt) Altered Elimination No (0 pt) Score/Fall Risk Level 0 - 2 = Low Risk. Humpty Dumpty Scale Fall Assessment Tool (age< 18yrs) Age 13 years and above (1 pt). Humpty Dumpty Scale Fall Assessment Tool (age< 18yrs) Age Gender Male (2 pts) Diagnosis Other diagnosis (1 pt) Cognitive Impairments Oriented to own ability (1 pt) Environmental Factors Outpatient area (1 pt) Medication Usage Other medications/ None (1 pt) Fall Risk Score/ Level Low Fall Risk: </= 11 points Maintained a safe environment: Age specific bed with railing, Bed in low position\T\ wheels locked, Assess need for siderail use, Locks on, Rm \T\ paths clutter \T\ obstacle free, Proper lighting, Call light, personal item w/in reach, Alarms as needed. Abuse screen: Denies threats or abuse. Denies injuries from another. Nutritional screening: No deficits noted. Tuberculosis screening: No symptoms or risk factors identified. Fall Risk No fall in past 12 months (0 pts). No secondary diagnosis (0 pts). IV access (20 points). Ambulatory Aid- None/Bed Rest/Nurse Assist (0 pts). Gait- Normal/Bed Rest/Wheelchair (0 pts) Mental Status- Oriented to own ability (0 pts). Total Wells Fall Scale indicates No Risk (0-24 pts). Assessment: 06/01 03:10 GI: Bowel sounds present X 4 quads. Abd is soft Abdomen is tender to palpation in right aa9 upper quadrant. Vital Signs: 05/31 14:30 BP 115 / 76; Pulse 93; Resp 18; Temp 98.6; Pulse Ox 94% ; Weight 108.86 kg; Height 5 jh5 ft. 9 in. (175.26 cm); Pain 10/10; 14:30 Body Mass Index 35.44 (108.86 kg, 175.26 cm) 5 ED Course: 14:06 Patient arrived in ED. am2 14:07 Marcus العراقي DO is Attending Physician. ms3 14:32 Triage completed. jh5 14:32 Arm band placed on left wrist. jh5 14:44 Abdomen Limited US In Process Unspecified. EDMS 15:41 Anum Patterson, DMITRI is Primary Nurse. ph 16:28 José Villar is Hospitalizing Provider. ms3 17:00 Inserted saline lock: 20 gauge in right antecubital area, using aseptic technique. ph 19:24 No provider procedures requiring assistance completed. ph 19:25 Patient has correct armband on for positive identification. Placed in gown. Bed in low ph position. Call light in reach. Side rails up X 1. Pulse ox on. NIBP on. 19:25 Patient admitted, IV remains in place. ph 06/01 07:08 Primary Nurse role handed off by Anum Patterson RN 07:08 Dandre Lloyd, DMITRI is Primary Nurse. bp Administered Medications: 05/31 14:55 Drug: NS 0.9% 1000 ml Route: IV; Rate: 1 bolus; Site: right antecubital; 5 15:37 Follow up: IV Status: Completed infusion; IV Intake: 1000ml 14:55 Drug: Zofran (Ondansetron) 4 mg Route: IVP; Site: right antecubital; 5 19:27 Follow up: Response: No adverse reaction ph 14:55 Drug: morphine 4 mg Route: IVP; Infused Over: 4 mins; Site: right antecubital; 5 17:00 Follow up: Response: No adverse reaction; Pain is unchanged, physician notified ph 14:58 Drug: Pepcid (famotidine) 20 mg Route: IVP; Site: right antecubital; [facility] 19:26 Follow up: Response: No adverse reaction ph 17:42 Drug: Dilaudid (HYDROmorphone) 1 mg Route: IVP; Site: right antecubital; ph 19:26 Follow up: Response: No adverse reaction; Pain is decreased ph 17:42 Drug: NS 0.9% 1000 ml Route: IV; Rate: 125 ml/hr; Site: right antecubital; ph 19:26 Follow up: IV Status: Infusion continued upon admission ph Medication: 19:25 VIS not applicable for this client. ph Intake: 15:37 IV: 1000ml; Total: 1000ml. Outcome: 16:29 Decision to Hospitalize by Provider. ms3 06/01 03:10 Admitted to ER Hold. Please see [facility] for further documentation. aa9 Admitted to ER Hold. Please see [facility] for further documentation. Condition: stable Instructed on the need for admit. 11:41 Patient left the ED. bp Signatures: Dispatcher [facility] Tawnya Schwab RN RN ss Anum Patterson, RN RN ph Feliz, Karen am2 Dandre Lloyd, RN RN bp Marcus العراقي DO DO ms3 Coreen Spears, RN RN jh5 Emely Sim, RN RN aa9
[2022-05-31] MEDS ORDERED: MORPHINE 4 MG/ML SYR IV PRN (17:04)
[2022-05-31] MEDS ORDERED: LABETALOL 20 MG/4ML SYRINGE IV PRN (17:04)
[2022-05-31] MEDS ORDERED: ACETAMINOPHEN 325 MG TABLET PO PRN (17:04)
[2022-05-31] MEDS ORDERED: ONDANSETRON 4 MG/2 ML VIAL IV PRN (17:11)
[2022-05-31] MEDS ORDERED: SODIUM CHLORIDE 0.9% 10ML INJ IV PRN (17:12)
--- NOTE | 2022-05-31 17:17 | P.HP ---
Certification for Inpatient Patient admitted to: Inpatient With expected LOS: >2 Midnights Patient will require the following post-hospital care: None Practitioner: I am a practitioner with admitting privileges, knowledge of patient current condition, hospital course, and medical plan of care. Services: Services provided to patient in accordance with Admission requirements found in Title 42 Section 412.3 of the Code of Federal Regulations Patient History Date of Service: 06/01/22 Reason for admission: Abdominal pain History of Present Illness: Patient is a 47-year-old male with a past medical history significant for chronic back pain, hypertension, pancreatitis who presents with complaint of abdominal pain that has been ongoing intermittently for the past 4 days. Patient reported abdominal pain started in the epigastric area and abdominal pain is now Generalized. Patient rated pain as 10/10 and described pain as sharp\aching in quality. Patient denies any other signs and symptoms. Symptoms are aggravated or relieved by nothing. Patient decided to present to the hospital due to worsening symptoms. Allergies No Known Drug Allergies Allergy (Verified 01/17/22 23:04) Unknown Home Medications: Amlodipine [Norvasc*] 10 mg PO DAILY 01/18/22 Lansoprazole [Prevacid 24Hr] 15 mg PO DAILY 01/18/22 carvediloL [Coreg*] 12.5 mg PO BID 01/18/22 - Past Medical/Surgical History Diabetic: No -: Pancreatitis -: history of Alcohol use -: Prior tobacco use -: Questionable Avascular necrosis of bilateral hips -: HTN -: GERD -: Bilateral hip surgery -: Back surgery Psychosocial/ Personal History: Pt lives at home with his children, works at [employer]. - Family History Father Notes: Patient with multiple medical issues in his family. Patient with diabetes and pulmonary disease. - Social History Smoking Status: Former smoker Alcohol use: No CD- Drugs: No Caffeine use: No Place of Residence: Home Review of Systems General: Unremarkable Eyes: Unremarkable ENT: Unremarkable Respiratory: Unremarkable Cardiovascular: Unremarkable Gastrointestinal: Abdominal Pain Genitourinary: Unremarkable Musculoskeletal: Unremarkable Integumentary: Unremarkable Neurological: Unremarkable Lymphatics: Unremarkable Physical Examination - Physical Exam General: Alert, In no apparent distress, Oriented x3, Cooperative, Mild distress HEENT: Atraumatic, PERRLA, Mucous membr. moist/pink, EOMI, Sclerae nonicteric Neck: Supple, 2+ carotid pulse no bruit, No LAD, Without JVD or thyroid abnormality Respiratory: Clear to auscultation bilaterally, Normal air movement Cardiovascular: No edema, Normal pulses, Regular rate/rhythm, Normal S1 S2 Gastrointestinal: Hypoactive, Tenderness Musculoskeletal: No clubbing, No swelling, No contractures, No tenderness Integumentary: No rashes, No breakdown, No significant lesion Neurological: Normal speech, Normal tone, Normal affect Lymphatics: No axilla or inguinal lymphadenopathy - Studies Laboratory Data (last 24 hrs) 05/31/22 14:47: Sodium 132 L, Potassium 3.6, BUN 18, Creatinine 1.20, Glucose 101, Total Bilirubin 3.1 H, AST 30, ALT 19, Alkaline Phosphatase 226 H, Lipase 1948 H 05/31/22 14:47: WBC 8.10, Hgb 11.4 L, Hct 33.9 L, Plt Count 176 Assessment and Plan - Plan -- Acute pancreatitis. Lipase elevated--1948. We will keep patient NPO. Gastroenterology consulted. Continue IV hydration. Will await further recommendations. -- Cholelithiasis. Abdominal ultrasound indicates findings consistent extensive gallbladder sludge and stones. Surgeon consulted. We will await further recommendation from surgery. -- Acute pain. We will manage pain with current pain medication regimen. --Chronic back pain. Continue current pain medication regimen. --CKD 2. Stable. We will continue to monitor renal functions. --Anemia of chronic disease. H&H stable. We will continue to monitor hemoglobin and transfuse if less than 7.0. --Hypertension. Stable. Continue home medications when appropriate. We will manage BP with labetalol as needed. --Class II obesity. Likely secondary to excess calories intake. Patient counseled on weight reduction, diet and exercise therapy. --GERD. Continue protonix --DVT prophylaxis with SCDs. Discharge Plan: Home Plan to discharge in: Greater than 2 days - Advance Directives Does patient have a Living Will: No Does patient have a Durable POA for Healthcare: No - Code Status/Comfort Care Code Status Assessed: Yes Physician Review: Patient Assessed, Agree with Above Assessment and Plan Critical Care: No
[2022-05-31 17:20] LABS: Protime INR 1.33
[2022-05-31 17:30] LABS: SARS-CoV-2 Antigen Rapid Res Negative (Negative)
[2022-05-31] MEDS ORDERED: HYDROMORPHONE HCL 1 MG/ML INJ ONE ×2 (17:34→21:58)
[2022-05-31 20:23] LABS: Thyroid Stimulating Hormone 1.16 uIU/mL (0.358-3.740)
[2022-05-31] MEDS: HEPARIN 5000 UNIT/ML 1 ML VIAL SQ SCH (21:00)
[2022-05-31] MEDS: HYDROMORPHONE HCL 1 MG/ML INJ IV PRN (22:01)
[2022-05-31] MEDS: D5 0.9 NS 1,000 ML IV SCH (23:00)
[2022-05-31] MEDS ORDERED: D5 0.45 NS 0 ML IV ONE (23:47)
[2022-05-31] MEDS ORDERED: HEPARIN 5000 UNIT/ML 1 ML VIAL ONE (23:47)
[2022-05-31] MEDS ORDERED: D5 0.9 NS 1,000 ML IV ONE (23:55)
[2022-06-01 00:21] LABS: Urine Blood Negative (Negative); Urine Glucose Negative (Negative); Urine Protein Trace (Negative)
[2022-06-01] MEDS ORDERED: HYDROMORPHONE HCL 1 MG/ML INJ ONE ×4 (00:59→09:59)
[2022-06-01] MEDS: HYDROMORPHONE HCL 1 MG/ML INJ IV PRN ×6 (01:01→20:03)
[2022-06-01] MEDS ORDERED: LORazepam 2 MG/ML VIAL IV ONE ×2 (02:47→14:00)
[2022-06-01 02:52] VITALS: BMI 35.4
[2022-06-01 03:05] LABS: Hematocrit 30.9 % (39.6-49.0); MCV 100.4 fL (80-100); MPV 7.5 fL (7.6-11.3); RBC Red Blood Cell Count 3.08 M/uL (4.33-5.43)
[2022-06-01 03:13] LABS: Potassium 3.4 mmol/L (3.5-5.1)
[2022-06-01] MEDS: D5 0.9 NS 1,000 ML IV SCH ×2 (04:00→17:19)
[2022-06-01] MEDS ORDERED: D5 0.9 NS 1,000 ML IV ONE (05:09)
[2022-06-01] MEDS ORDERED: INFLUENZA VACCINE (for 6+ mo) 0.5 ML DOSE IMVAC ONE (08:00)
[2022-06-01] MEDS: HEPARIN 5000 UNIT/ML 1 ML VIAL SQ SCH ×2 (09:00→20:05)
[2022-06-01] MEDS: PANTOPRAZOLE 40 MG INJ IVP SCH (09:00)
[2022-06-01] MEDS ORDERED: HEPARIN 5000 UNIT/ML 1 ML VIAL ONE (09:58)
[2022-06-01] MEDS ORDERED: PANTOPRAZOLE 40 MG INJ ONE (09:59)
[2022-06-01] MEDS ORDERED: HYDROMORPHONE HCL 2 MG/ML inj IV ONE (12:57)
--- NOTE | 2022-06-01 14:00 | P.CNS ---
Date of Consult: 06/01/22 PC: I was asked to see this 47-year-old male in regards to his right upper quadrant abdominal pain. HPC: Patient has been having problems with right upper quadrant abdominal pain over the last year or 2. Yesterday had a very severe episode. Located in the right upper quadrant. Radiating to his back. He came to the emergency room as he could no longer stand it. PSHx: Negative PMHx: Negative Social Hx: No known allergies Sys R: No cough, wheeze, shortness of breath. No chest pain or palpitations. Denies any urinary complaints. O/E: Awake alert vital signs are stable HEENT: Not jaundiced Chest: Air entry is equal bilaterally Abd: Tender in the right upper quadrant [place]: Intact Data: Has documented gallstones, also elevation of his liver enzymes with gallstone pancreatitis Impression: Gallstone pancreatitis Plan: The patient has been admitted at this time for observation and pain control. GI is aware the patient is in the hospital should he require their intervention. An MR I was ordered last night, but the patient declined to have the procedure as he is claustrophobic. I discussed with him today we are trying to get this MRI done so that we can determine if he has a common duct stone or not. I discussed with him laparoscopic gallbladder surgery with cholangiograms. The risks of this procedure were discussed. The possibility of bleeding, infection, injury to bile ducts blood vessels and intestines has been described. The possible need for further surgeries and procedures were outlined. He understands and wants to proceed.
--- NOTE | 2022-06-01 15:26 | P.PN ---
Subjective Date of Service: 06/01/22 Chief Complaint: Abdominal pain Patient is still complaining of abdominal pain. He is currently n.p.o. No nausea or vomiting. Physical Examination - Vital Signs Temperature: 97.1 F Blood Pressure: 129/77 Pulse: 89 Respirations: 14 Pulse Ox (%): 98 - Studies Laboratory Data (last 24 hrs) 05/31/22 16:59: PT 14.6 H, INR 1.33, APTT 30.9 05/31/22 14:47: Sodium 132 L, Potassium 3.6, BUN 18, Creatinine 1.20, Glucose 101, Total Bilirubin 3.1 H, AST 30, ALT 19, Alkaline Phosphatase 226 H, Lipase 1948 H Assessment And Plan - Current Problems (Diagnosis) (1) Acute pancreatitis Current Visit: No Status: Acute Qualifiers: Pancreatitis type: biliary Acute pancreatitis complication: no infection or necrosis Qualified Code(s): K85.10 - Biliary acute pancreatitis without necrosis or infection (2) Cholelithiasis Current Visit: No Status: Acute (3) HTN (hypertension) Current Visit: No Status: Chronic Qualifiers: Hypertension type: primary hypertension Qualified Code(s): I10 - Essential (primary) hypertension (4) History of alcohol use Current Visit: Yes Status: Acute - Plan Physical Exam General: Alert, Oriented x3. NAD. HEENT: Mucous membr. moist/pink, Sclerae nonicteric Respiratory: Clear to auscultation bilaterally, Normal air movement Cardiovascular: No edema, Normal pulses, Regular rate/rhythm, Normal S1 S2 Gastrointestinal: Normal bowel sounds, Tenderness-upper abdomen Musculoskeletal: No swelling, No tenderness Integumentary: No rashes, No breakdown. Neurological: Normal speech, no focal motor deficit. Plan: Patient with elevated total bilirubin and direct bilirubin. Lipase level trended down to normal from yesterday. Patient seen by general surgery Dr. Shearer who is planning lap cholecystectomy and intraoperative cholangiogram. MRCP done and the result is pending. Continue supportive measures. Pain medication as needed. Empiric IV Rocephin. GI Dr. Callahan consulted given elevated bilirubin and elevated ALP. AST/ALT are normal. Antihypertensives on hold for now.
--- NOTE | 2022-06-01 15:40 | RAD REPORT ---
EXAM DESCRIPTION: ZOAJulmjymiyihhu96/14/2022 2:45 pm CLINICAL HISTORY: Abdominal pain COMPARISON: Ultrasound May 31, 2022 TECHNIQUE: Magnetic resonance cholangiogram was performed.3D MIP reconstruction performed. Additiona l axial and coronal magnetic resonance imaging of abdomen obtained. FINDINGS: Multiple small gallstones. Gallbladder wall is mildly thickened. The evaluation of the biliary tree is somewhat limited secondary to motion artifact. There does appea r to be a filling defect within the distal common bile duct. Biliary tree normal caliber Pancreatic duct is normal caliber The pancreatic head is enlarged. Stranding within the peripancreatic fat IMPRESSION: Cholelithiasis. Thickened gallbladder wall probably indicate cholecystitis Pancreatitis. Enlarged pancreatic head probably secondary to pancreatitis. This should be monitored o n follow-up exam Suboptimal evaluation of the common bile duct. However, there does appear to be a filling defect susp icious for stone
[2022-06-01] MEDS: HYDROMORPHONE HCL 2 MG/ML inj IV PRN (23:00)
[2022-06-02] MEDS: HYDROMORPHONE HCL 2 MG/ML inj IV PRN ×5 (02:09→20:11)
[2022-06-02] MEDS: D5 0.9 NS 1,000 ML IV SCH ×5 (02:13→22:00)
[2022-06-02 05:32] LABS: Specific Gravity 1.013 (1.005-1.030); Urine Bilirubin NEGATIVE (Negative); Urine Blood Negative (Negative); Urine Clarity Clear (Clear); Urine Color Yellow (Yellow); Urine Glucose NEGATIVE (Negative); Urine Protein NEGATIVE (Negative); Urine Urobilinogen 4+ (Over) (Normal)
[2022-06-02 06:00] LABS: Absolute Lymphocytes (CBC) 0.9 K/uL (0.7-4.9); Hematocrit 32.3 % (39.6-49.0); Lymphocytes % 17.8 % (15.3-44.8); MCV 100.1 fL (80-100); MPV 6.9 fL (7.6-11.3); RBC Red Blood Cell Count 3.22 M/uL (4.33-5.43)
[2022-06-02 06:21] LABS: Albumin 3.2 g/dL (3.4-5.0); Potassium 3.4 mmol/L (3.5-5.1); Protein, Total 7.2 g/dL (6.4-8.2)
[2022-06-02] MEDS: KCL 20 MEQ/100 mL IVPB 20 MEQ/100 ML BAG IV SCH ×2 (06:45→09:00)
[2022-06-02] MEDS: PANTOPRAZOLE 40 MG INJ IVP SCH (08:56)
[2022-06-02] MEDS: HEPARIN 5000 UNIT/ML 1 ML VIAL SQ SCH ×2 (08:56→20:11)
[2022-06-02] MEDS ORDERED: Ringers Lactate 1,000 ML IV ONE ×2 (12:34→14:37)
[2022-06-02] MEDS ORDERED: CEFOXITIN SODIUM 1 GM/VIAL ONE (12:58)
[2022-06-02] MEDS ORDERED: GLYCOPYRROLATE 0.2 MG/ML SYR ONE (13:18)
[2022-06-02] MEDS ORDERED: propofoL 200 MG/20 ML VIAL IV ONE (13:18)
[2022-06-02] MEDS ORDERED: LIDOCAINE 2% MPF 5 ML VIAL ONE (13:18)
[2022-06-02] MEDS ORDERED: FENTANYL CITR 250 MCG/5 ML ONE (13:18)
[2022-06-02] MEDS ORDERED: MIDAZOLAM HCL 2 MG/2 ML INJ ONE (13:18)
[2022-06-02] MEDS ORDERED: ROCURONIUM 50 MG/5 ML VIAL IV ONE ×2 (13:19→14:43)
[2022-06-02] MEDS ORDERED: ONDANSETRON 4 MG/2 ML VIAL ONE (13:20)
--- NOTE | 2022-06-02 14:03 | P.PN ---
Subjective Date of Service: 06/02/22 Chief Complaint: Abdominal pain Patient seen sitting at the edge of the bed. He has no new complaint He ss scheduled for lap cholecystectomy today No nausea or vomiting. Physical Examination - Vital Signs Temperature: 97.2 F Blood Pressure: 128/84 Pulse: 97 Respirations: 16 Pulse Ox (%): 96 Assessment And Plan - Current Problems (Diagnosis) (1) Acute pancreatitis Current Visit: No Status: Acute Qualifiers: Pancreatitis type: biliary Acute pancreatitis complication: no infection or necrosis Qualified Code(s): K85.10 - Biliary acute pancreatitis without necrosis or infection (2) Cholelithiasis Current Visit: No Status: Acute (3) HTN (hypertension) Current Visit: No Status: Chronic Qualifiers: Hypertension type: primary hypertension Qualified Code(s): I10 - Essential (primary) hypertension (4) History of alcohol use Current Visit: Yes Status: Acute - Plan Physical Exam General: Alert, Oriented x3. NAD. HEENT: Mucous membr. moist/pink, Sclerae nonicteric Respiratory: Clear to auscultation bilaterally, Normal air movement Cardiovascular: No edema, Normal pulses, Regular rate/rhythm, Normal S1 S2 Gastrointestinal: Normal bowel sounds, Tenderness-upper abdomen Musculoskeletal: No swelling, No tenderness Integumentary: No rashes, No breakdown. Neurological: Normal speech, no focal motor deficit. Plan: Patient with elevated total bilirubin and direct bilirubin. Total bilirubin level is trending down. MRCP results reviewed and report cholelithiasis with acute cholecystitis, and possible filling defect in the CBD. Lipase level trended down to normal. Dr. Sheaerr planning lap cholecystectomy and intraoperative cholangiogram today. GI Dr. Callahan is following for need for ERCP. Continue supportive measures. Pain medication as needed. Empiric IV Rocephin. Antihypertensives on hold for now.
[2022-06-02] MEDS ORDERED: FENTANYL CITR 100 MCG/2 ML ONE (14:45)
--- NOTE | 2022-06-02 15:45 | P.OP ---
Preoperative diagnosis: Cholecystitis with gallstone pancreatitis, possible choledocholithiasis Postoperative diagnosis: Cholecystitis with pancreatitis Primary procedure: Laparoscopic cholecystectomy with intraoperative cholangiogram Secondary procedure: Lysis of extensive intra-abdominal adhesions Anesthesia: General Estimated blood loss: Less than 30 cc Specimen: Gallbladder and content Operative Technique: The patient was brought to the operating room and placed supine on the table. After the induction of adequate general endotracheal anesthesia, there the abdomen was prepped with a DuraPrep solution, and he was positioned and draped in usual aseptic manner. A subumbilical incision was made. This brought down through the skin and subcutaneous tissue. The Visiport was now used to enter the peritoneal cavity and created pneumoperitoneum to approximately 12 mmHg. Under direct vision a 5 mm trocar was placed in the upper midline, and 2 other fives on the right latera l side of the abdomen. The patient was now placed in reverse Trendelenburg. The OR table was rolled to the left. We could visualize the right upper quadrant. It was interesting to note that there is adhesions of the omentum to the inferior edge of the right lobe of the liver all the way across the abdomen past the ligament and into the left lobe. These were taken down using blunt and sharp dissection these are quite thick chronic adhesions. We now were able to identify the gallbladder. It was noted be very enlarged, swollen, and under pressure. The contents were aspirated using our aspirating needle. We can now place a grasper on the fundus of the gallbladder. The body itself this and still had omental adhesions that were markedly adherent to it. There was some evidence of some neovascularization around the gallbladder itself. The small troublesome vessels were controlled with electrocautery. Trejo's pouch was identified. We were now able to apply lateral traction. This distorted gallbladder was carefully peeled out so that we could identify the cystic duct and artery. The cystic duct was identified first. We were able to place a clip on it. An opening was made into the cystic duct through which we obtained a cholangiogram. The cholangiogram showed good flow contrast of dye into the duodenum. There was a little bit of dilation on the distal portion of the common bile duct, but no filling defect hold-up or stone was seen. In addition we were able to pass our cholangiocatheter down into the duodenum with no hanging or anything. The balloon was now deflated, the cath withdrawn back into the common bile duct. After gently inflating the balloon we were able to pull back traction all the way until the catheter was removed out of the cystic duct. No stones or debris was noted. Once again the catheter was filled and the duct was flushed with saline solution. The distal portion of the cystic duct was now controlled by placing 2 clips across the distal portion of the cystic duct which was now fully transected. The artery was identified and it was dealt with with 2 clips as well. Another clip was placed on a small branch that had been bleeding. The gallbladder was now dissected free from the liver bed, placed into an Endo Catch, and brought out through the umbilical trocar site attention was turned back to the gallbladder fossa. This was irrigated with a copious amount of a saline solution. The irrigating fluid was aspirated from the peritoneal cavity. The patient was returned to the neutral position on the OR table. Attention was turned towards the umbilicus. Using the Endo Close 2 absorbable sutures were placed under direct vision. At this point the trochars were removed, this pneumoperitoneum collapsed, and the suture tied. Kajal were then applied to the skin. At the end of the procedure the patient was in a stable condition was sent to the recovery room. Needle sponge instrument count were correct. No drains were placed. Kajal were applied to the skin. Complications: None Transferred to: Recovery Room Condition: Good
--- NOTE | 2022-06-02 15:52 | RAD REPORT ---
EXAM DESCRIPTION: RAD - Cholangiogram Oper-Xray Or - 06/02/2022 3:15 pm CLINICAL HISTORY: LAP XUAN WITH IOC COMPARISON: Cholangiogram dated 06/01/2022 FINDINGS/IMPRESSION: Seventeen intraoperative fluoroscopic images were submitted showing intraoperat jennifer cholangiogram. No retained stones identified. Fluoro time: 1 minutes Cumulative dose: 54.9 mGy
[2022-06-02] MEDS: HYDROMORPHONE HCL 2 MG/ML inj ONE ×4 (16:22→16:41)
[2022-06-02 16:45] VITALS: O2SAT 99
[2022-06-03] MEDS: HYDROMORPHONE HCL 2 MG/ML inj IV PRN ×3 (00:17→07:01)
[2022-06-03 05:44] LABS: Absolute Lymphocytes (CBC) 0.6 K/uL (0.7-4.9); Hematocrit 31.3 % (39.6-49.0); Lymphocytes % 8.8 % (15.3-44.8); MCV 100.8 fL (80-100); MPV 6.8 fL (7.6-11.3); RBC Red Blood Cell Count 3.11 M/uL (4.33-5.43)
[2022-06-03 06:01] LABS: Bilirubin Direct 1.7 mg/dL (0-0.2); Bilirubin Total 2.4 mg/dL (0.2-1.0); Potassium 3.8 mmol/L (3.5-5.1); Protein, Total 6.8 g/dL (6.4-8.2)
[2022-06-03] MEDS: HEPARIN 5000 UNIT/ML 1 ML VIAL SQ SCH (09:56)
[2022-06-03] MEDS: PANTOPRAZOLE 40 MG INJ IVP SCH (09:56)
[2022-06-03] MEDS ORDERED: HYDROCODONE/APAP 10/325 TAB PO PRN (11:47)
--- NOTE | 2022-06-03 14:29 | P.PN ---
Date of Service: 06/03/22 S: Patient feels relatively well today, has been up ambulating. Has some soreness in his abdominal wall. Some bleeding around his umbilicus [patient is on Eliquis] but easily controlled with pressure dressing. Oh: Vital signs are stable, abdomen is soft, cholangiograms from yesterday were reviewed by radiologist they can also agree that there is no common bile duct stone seen. A: Patient is doing well today status post laparoscopic cholecystectomy with a cholangiogram for suspected common bile duct stones and gallstone pancreatitis. P: Patient is surgically stable for discharge. I have called in a prescription for pain medicine HEB for hydrocodone 7.5/325 mg 1 p.o. every 6 hours as needed pain. He has been advised about walking, wound care, diet, he will call on Monday for appointment. He understands and wants to proceed.
--- NOTE | 2022-06-03 15:26 | P.DS ---
Admission Date: 05/31/22 Discharge Date: 06/03/22 Disposition: ROUTINE DISCHARGE Discharge Condition: FAIR Reason for Admission: Abdominal pain - Problems (1) Acute pancreatitis Current Visit: No Status: Acute Qualifiers: Pancreatitis type: biliary Acute pancreatitis complication: no infection or necrosis Qualified Code(s): K85.10 - Biliary acute pancreatitis without necrosis or infection (2) Cholelithiasis Current Visit: No Status: Acute (3) HTN (hypertension) Current Visit: No Status: Chronic Qualifiers: Hypertension type: primary hypertension Qualified Code(s): I10 - Essential (primary) hypertension (4) History of alcohol use Current Visit: Yes Status: Acute Brief History of Present Illness: Patient is a 47-year-old male with a past medical history significant for chronic back pain, hypertension, pancreatitis who presented with complaint of abdominal pain that has been ongoing intermittently for 4 days. Patient rated pain as 10/10 and described pain as sharp\aching in quality. Patient decided to present to the hospital due to worsening symptoms. Right upper quadrant ultrasound demonstrated extensive gallbladder sludge and stones. Lipase level elevated. Patient was admitted for further management of gallstone pancreatitis. Hospital Course: Patient admitted to the medical floor. Total bilirubin and direct bilirubin were elevated but trended down with monitoring. MRCP was done which reported cholelithiasis with acute cholecystitis, and possible filling defect in the CBD. Lipase level trended down to normal the next day on admission. Patient seen by Dr. Shearer who performed lap cholecystectomy and intraoperative cholangiogram. Cholangiogram reported no CBD obstruction. Patient was monitored overnight post lap cholecystectomy. He tolerated diet and was ambulatory Patient deemed stable for discharge per surgery. Vital Signs/Physical Exam: Temp Pulse Resp BP Pulse Ox 97.2 F 95 H 16 101/66 94 06/03/22 12:00 06/03/22 12:00 06/03/22 12:08 06/03/22 12:00 06/03/22 12:08 General: Alert, In no apparent distress, Oriented x3 HEENT: Mucous membr. moist/pink Neck: JVD not distended Respiratory: Clear to auscultation bilaterally, Normal air movement Cardiovascular: Regular rate/rhythm, Normal S1 S2 Gastrointestinal: Normal bowel sounds, Non-distended Musculoskeletal: No erythema Integumentary: No rashes Neurological: Normal strength at 5/5 x4 extr Laboratory Data at Discharge: WBC 6.80 K/uL (4.3-10.9) 06/03/22 05:25 Hgb 10.4 g/dL (13.6-17.9) L 06/03/22 05:25 Hct 31.3 % (39.6-49.0) L 06/03/22 05:25 Plt Count 186 K/uL (152-406) 06/03/22 05:25 PT 14.6 SECONDS (9.5-12.5) H 05/31/22 16:59 INR 1.33 05/31/22 16:59 APTT 30.9 SECONDS (24.3-36.9) 05/31/22 16:59 Sodium 132 mmol/L (136-145) L 06/03/22 05:25 Potassium 3.8 mmol/L (3.5-5.1) 06/03/22 05:25 BUN 9 mg/dL (7-18) 06/03/22 05:25 Creatinine 0.90 mg/dL (0.70-1.30) 06/03/22 05:25 Glucose 118 mg/dL (74-106) H 06/03/22 05:25 Total Bilirubin 2.4 mg/dL (0.2-1.0) H 06/03/22 05:25 AST 53 U/L (15-37) H 06/03/22 05:25 ALT 30 U/L (16-61) 06/03/22 05:25 Alkaline Phosphatase 208 U/L (45-117) H 06/03/22 05:25 Triglycerides 76 mg/dL (<150) 05/31/22 18:06 Cholesterol 87 mg/dL (<200) 05/31/22 18:06 HDL Cholesterol 23 mg/dL (40-60) L 05/31/22 18:06 Cholesterol/HDL Ratio 3.78 05/31/22 18:06 Lipase 95 U/L (73-393) 06/03/22 05:25 Home Medications: Amlodipine [Norvasc*] 10 mg PO DAILY 01/18/22 Lansoprazole [Prevacid 24Hr] 15 mg PO DAILY 01/18/22 carvediloL [Coreg*] 12.5 mg PO BID 01/18/22 Physician Discharge Instructions: Pain medication sent to [facility] in [place]. Please check your blood pressure before you take your blood pressure medications. Your blood pressure has been normal without your blood pressure medications during your hospital. Do not take your blood pressure medication until your top blood pressure value (systolic BP) is greater than 140. Followup: Terry Shearer MD [ACTIVE - CAN ADMIT] - (Call office Monday to make an appointment for ) BILLY CAMPUZANO [Primary Care Provider] - (Call to schedule appointment) Time spent managing pt's care (in minutes): 32
[2022-06-03 16:32] VITALS: BP 100/67; TEMP 97.4
== END 2022-06-03 16:25 | disposition home or self-care (01) | DRG 417 ==
LOC: ER 14:05 → ERHOLD 17:01 → 2ND 06-01 11:09
PROVIDERS: ADMIT Nurse Practitioner Family; ATTEND Internal Medicine
PROC: 0DNW4ZZ Release Peritoneum, Percutaneous Endoscopic Approach (ICD-10-PCS; 2022-06-02)
PROC: BF502Z0 Other Imaging of Bile Ducts using Fluorescing Agent, Intraoperative (ICD-10-PCS; 2022-06-02)
PROC: 0FT44ZZ Resection of Gallbladder, Percutaneous Endoscopic Approach (ICD-10-PCS; principal; 2022-06-02 13:30)
DX: K80.00 Calculus of gallbladder with acute cholecystitis without obstruction (principal); K85.10 Biliary acute pancreatitis without necrosis or infection; F10.21 Alcohol dependence, in remission; I10 Essential (primary) hypertension; K80.20 Calculus of gallbladder without cholecystitis without obstruction; K66.0 Peritoneal adhesions (postprocedural) (postinfection); Z20.822 Contact with and (suspected) exposure to COVID-19
CPT/HCPCS: 36415; 74181; 74300; 76705; 80048; 80053; 80061; 80320; 81003; 81015; 82248; 83036; 83690; 84439; 84443; 85025; 85610; 85730; 87811; 88304; 96361; 96374; 96375; 99285; C9113; J0694; J1170; J1644; J2001; J2250; J2405; J2704; J3010; J3480; J7030; J7042; J7120; J7799; Q9967

== ENCOUNTER 2022-06-26 07:59 | Emergency (ER) | payer BC ==
[2022-06-26] MEDS ORDERED: ONDANSETRON 4 MG/2 ML VIAL ONE ×2 (08:27→11:28)
[2022-06-26] MEDS ORDERED: PANTOPRAZOLE 40 MG INJ ONE (08:27)
[2022-06-26] MEDS ORDERED: Ringers Lactate 1,000 ML IV ONE (08:27)
[2022-06-26 08:47] LABS: Absolute Lymphocytes (CBC) 0.9 K/uL (0.7-4.9); Hematocrit 33.2 % (39.6-49.0); Lymphocytes % 13.9 % (15.3-44.8); MCV 96.2 fL (80-100); MPV 8.3 fL (7.6-11.3); RBC Red Blood Cell Count 3.45 M/uL (4.33-5.43)
[2022-06-26] MEDS ORDERED: MORPHINE 4 MG/ML SYR ONE (08:49)
[2022-06-26 09:02] LABS: Albumin 3.5 g/dL (3.4-5.0); Potassium 3.4 mmol/L (3.5-5.1); Protein, Total 7.6 g/dL (6.4-8.2)
--- NOTE | 2022-06-26 09:47 | RAD REPORT ---
EXAM DESCRIPTION: CTAbdomen Pelvis W Contrast - 06/26/2022 9:34 am CLINICAL HISTORY: Abdominal pain. abdominal pain, vomiting, diarrhea COMPARISON: Abdomen Pelvis W Contrast dated 01/17/2022; Abdomen Pelvis W Contrast dated 06/01/2021 ; Abdomen Pelvis W Contrast dated 04/13/2019; CT ABD PELVIS W CONTRAST dated 11/23/2014 TECHNIQUE: Biphasic CT imaging of the abdomen and pelvis was performed with 100 ml non-ionic IV cont rast. All CT scans are performed using dose optimization technique as appropriate and may include automated exposure control or mA/KV adjustment according to patient size. FINDINGS: The lung bases are clear. Prominent diffuse fatty liver. The spleen is mildly prominent in size. Cholecystectomy clips. Pancreatic head and uncinate process are enlarged and edematous. There are [address] round [address] ructures within the pancreatic head. No bowel obstruction, free air, free fluid or abscess. Prominent sigmoid diverticulosis coli is prese nt without diverticulitis seen. Nonvisualized appendix. No evidence of significant lymphadenopathy. Bilateral total hip arthroplasty. IMPRESSION: Significant edema and inflammation involving the pancreatic head and uncinate process. T wo enhancing rounded 16 mm lesions within the pancreatic head probably represent pseudoaneurysms. Significant diffuse fatty liver pattern. Sigmoid diverticulosis coli is present without diverticulitis.
[2022-06-26] MEDS ORDERED: HYDROMORPHONE HCL 1 MG/ML INJ ONE (10:16)
[2022-06-26] MEDS ORDERED: NA CHLORIDE 0.9% 250 ML ONE (11:10)
[2022-06-26] MEDS ORDERED: KETAMINE HCL 500 MG/5 ML VIAL ONE (11:10)
[2022-06-26 11:12] LABS: SARS-CoV-2 Antigen Rapid Res Negative (Negative)
--- NOTE | 2022-06-26 11:17 | EDPHYS ---
Physician Documentation [facility] Name: Terry Saenz Jr Age: 47 yrs Sex: Male : 1975 Arrival Date: 06/26/2022 Time: 08:00 Bed 19 Private MD: Cathi Ferrell ED Physician Jet Bey HPI: 06/26 08:19 This 47 yrs old Male presents to ER via Ambulatory with complaints of Vomiting, jmm Abdominal Pain. 08:19 The patient presents to the emergency department with nausea, vomiting, diarrhea, jmm abdominal pain. Onset: The symptoms/episode began/occurred gradually, 2 day(s) ago. Possible causes: unknown. This is a 47 year old male with a history of chronic pain, htn, pancreatitis, that presents to the ED with complaints of abdominal pain, diarrhea beginning approx 2 days ago. Patient states he has had some abdominal pain since a cholecystectomy performed 3 weeks ago. Patient decided to go to the ED due to an episode of vomiting with bright red blood. States his diarrhea has been dark. . Historical: - Allergies: 08:10 No Known Drug Allergies; hb - PMHx: 08:10 avascular necrosis; chronic back pain; Hypertension; Pancreatitis; hb - PSHx: 08:10 Appendectomy; Back x 2; hb - Immunization history:: Adult Immunizations not up to date. - Social history:: Smoking status: unknown. ROS: 12:15 Constitutional: Negative for fever, chills, and weight loss, Cardiovascular: Negative jmm for chest pain, palpitations, and edema, Respiratory: Negative for shortness of breath, cough, wheezing, and pleuritic chest pain. 12:15 Abdomen/GI: Positive for abdominal pain, nausea and vomiting, diarrhea, hematemesis. 12:15 All other systems are negative. Exam: 10:56 Constitutional: This is a well developed, well nourished patient who is awake, alert, jmm and in no acute distress. Head/Face: atraumatic. Eyes: EOMI, no conjunctival erythema appreciated ENT: Moist Mucus Membranes Neck: Trachea midline, Supple Chest/axilla: Normal chest wall appearance and motion. Cardiovascular: Regular rate and rhythm. No edema appreciated Respiratory: Normal respirations, no respiratory distress appreciated Abdomen/GI: Non distended Back: Normal ROM Skin: General appearance color normal MS/ Extremity: Moves all extremities, no obvious deformities appreciated, no edema noted to the lower extremities Neuro: Awake and alert Psych: Behavior is normal, Mood is normal, Patient is cooperative and pleasant 10:56 Abdomen/GI: Inspection: abdomen appears normal, Bowel sounds: normal, Palpation: soft, mild abdominal tenderness, in the right upper quadrant and left upper quadrant, Rectal exam: Stool: normal, guaiac positive. Vital Signs: 08:08 BP 120 / 80; Pulse 132; Resp 18; Temp 98.3; Pulse Ox 100% on R/A; Weight 104.33 kg; hb Height 6 ft. (182.88 cm); Pain 8/10; 09:14 BP 107 / 67; Pulse 99; Resp 18; Pulse Ox 99% on R/A; kr3 10:03 BP 121 / 88; Pulse 98; Resp 18; Pulse Ox 99% on R/A; kr3 11:01 BP 106 / 76; Pulse 103; Resp 18; Pulse Ox 97% on R/A; kr3 12:11 BP 124 / 83; Pulse 92; Resp 18; Pulse Ox 96% on R/A; kr3 08:08 Body Mass Index 31.19 (104.33 kg, 182.88 cm) hb MDM: 08:19 Patient medically screened. [facility] 11:15 Data reviewed: vital signs, nurses notes. Counseling: I had a detailed discussion with juan the patient and/or guardian regarding: the historical points, exam findings, and any diagnostic results supporting the discharge/admit diagnosis, lab results, radiology results, the need for further work-up and treatment in the hospital. ED course: I discussed the patient with Dr. Paniagua and Dr. Rubi whom accepted the patient to her service. . 06/26 08:20 Order name: CBC with Diff; Complete Time: 09:00 [facility] 06/26 08:20 Order name: CMP; Complete Time: 09:06 [facility] 06/26 08:20 Order name: Lipase; Complete Time: 09:06 [facility] 06/26 08:20 Order name: Type And Screen; Complete Time: 09:30 [facility] 06/26 10:03 Order name: ABO/RH no charge; Complete Time: 10:09 EDMS 06/26 10:22 Order name: SARS RAPID; Complete Time: 11:13 eb 06/26 08:20 Order name: CT Abd/Pelvis - IV Contrast Only; Complete Time: 09:50 [facility] 06/26 08:20 Order name: IV Saline Lock; Complete Time: 08:45 [facility] 06/26 08:20 Order name: Labs collected and sent; Complete Time: 08:37 [facility] Administered Medications: 08:34 Drug: ProTONIX (pantoprazole) 80 mg Route: IVP; Site: right antecubital; kr3 09:33 Follow up: Response: No adverse reaction kr3 08:36 Drug: Zofran (Ondansetron) 4 mg Route: IVP; Site: right antecubital; kr3 09:33 Follow up: Response: No adverse reaction kr3 08:42 Drug: Lactated Ringers Solution 1000 ml Route: IV; Rate: 1000 ml/hr; Site: right kr3 antecubital; 12:12 Follow up: Response: No adverse reaction; IV Status: Completed infusion; IV Intake: kr3 1000ml 08:51 Drug: morphine 4 mg Route: IVP; Infused Over: 4 mins; Site: right antecubital; kr3 09:59 Follow up: Response: No adverse reaction; RASS: Alert and Calm (0) kr3 10:22 Drug: Dilaudid (HYDROmorphone) 1 mg Route: IVP; Site: right antecubital; kr3 12:12 Follow up: Response: No adverse reaction; RASS: Alert and Calm (0) kr3 11:23 Drug: Ketamine 10 mg Route: IVP; Site: right antecubital; kr3 12:13 Follow up: Response: No adverse reaction; RASS: Alert and Calm (0) kr3 11:34 Drug: Zofran (Ondansetron) 4 mg Route: IVP; Site: right antecubital; kr3 12:13 Follow up: Response: No adverse reaction kr3 Disposition: 15:11 Co-signature as Attending Physician, Jet Bey MD. rn Disposition Summary: 06/26/22 11:16 Transfer Ordered Transfer Location: [facility] Reason: Higher level of care jmm Condition: Stable jmm Problem: new jmm Symptoms: are unchanged jmm Accepting Physician: Dr. Rubi(06/26/22 12:32) kr3 Diagnosis - Acute Pancreatitis [facility] Forms: - Medication Reconciliation Form jmm - SBAR form jm Signatures: Dispatcher [employer] Sudhakar Cunha PA PA jmm Nieto, Roman, MD MD rn Baxter, Heather, RN RN hb Reid, Kelley, RN RN kr3 Corrections: (The following items were deleted from the chart) 12:32 11:16 Dr. Elicia martinez kr3
--- NOTE | 2022-06-26 11:17 | ER ---
Nurse's Notes [facility] Name: Terry Saenz Jr Age: 47 yrs Sex: Male : 1975 Arrival Date: 06/26/2022 Time: 08:00 Bed 19 Private MD: Cathi Ferrell Diagnosis: Acute Pancreatitis Presentation: 06/26 08:08 Chief complaint: Vomiting and abdominal pain since this morning. Reports recent hb appendectomy. Coronavirus screen: At this time, the client does not indicate any symptoms associated with coronavirus-19. Ebola Screen: No symptoms or risks identified at this time. Initial Sepsis Screen: Does the patient meet any 2 criteria? HR > 90 bpm. No. Patient's initial sepsis screen is negative. Does the patient have a suspected source of infection? No. Patient's initial sepsis screen is negative. Risk Assessment: Do you want to hurt yourself or someone else? Patient reports no desire to harm self or others. Onset of symptoms was June 23, 2022. 08:08 Method Of Arrival: Ambulatory hb 08:08 Acuity: SCOUT 2 hb Triage Assessment: 12:32 GI: Reports lower abdominal pain, upper abdominal pain. kr3 Historical: - Allergies: 08:10 No Known Drug Allergies; hb - PMHx: 08:10 avascular necrosis; chronic back pain; Hypertension; Pancreatitis; hb - PSHx: 08:10 Appendectomy; Back x 2; hb - Immunization history:: Adult Immunizations not up to date. - Social history:: Smoking status: unknown. Screenin:30 [facility] ED Fall Risk Assessment (Adult) History of falling in the last 3 months, kr3 including since admission No falls in past 3 months (0 pts) Confusion or Disorientation No (0 pts) Intoxicated or Sedated No (0 pts) Impaired Gait No (0 pts) Mobility Assist Device Used No (0 pt) Altered Elimination No (0 pt) Score/Fall Risk Level 0 - 2 = Low Risk. Abuse screen: Denies threats or abuse. Nutritional screening: No deficits noted. Tuberculosis screening: No symptoms or risk factors identified. Assessment: 08:13 General: Appears in no apparent distress. uncomfortable, Behavior is calm, cooperative, kr3 appropriate for age. Pain: Complains of pain in abdomen. Neuro: Level of Consciousness is awake, alert, obeys commands, Oriented to person, place, time, situation. Cardiovascular: Patient's skin is warm and dry. Respiratory: Airway is patent Respiratory effort is even, unlabored, Respiratory pattern is regular, symmetrical. GI:. GI:. GI: Abdomen is round non-distended. : No signs and/or symptoms were reported regarding the genitourinary system. EENT: No signs and/or symptoms were reported regarding the EENT system. Derm: Skin is intact, is healthy with good turgor. Musculoskeletal: No signs and/or symptoms reported regarding the musculoskeletal system. 09:13 Reassessment: patient states "the pain med didn't do anything its still at an 8". kr3 10:03 Reassessment: Patient appears in no apparent distress at this time. Patient and/or kr3 family updated on plan of care and expected duration. Pain level reassessed. Patient is alert, oriented x 3, equal unlabored respirations, skin warm/dry/pink. 11:02 Reassessment: Patient appears in no apparent distress at this time. Patient and/or kr3 family updated on plan of care and expected duration. Pain level reassessed. Patient is alert, oriented x 3, equal unlabored respirations, skin warm/dry/pink. 12:11 Reassessment: Patient appears in no apparent distress at this time. Patient and/or kr3 family updated on plan of care and expected duration. Pain level reassessed. Patient is alert, oriented x 3, equal unlabored respirations, skin warm/dry/pink. Vital Signs: 08:08 BP 120 / 80; Pulse 132; Resp 18; Temp 98.3; Pulse Ox 100% on R/A; Weight 104.33 kg; hb Height 6 ft. (182.88 cm); Pain 8/10; 09:14 BP 107 / 67; Pulse 99; Resp 18; Pulse Ox 99% on R/A; kr3 10:03 BP 121 / 88; Pulse 98; Resp 18; Pulse Ox 99% on R/A; kr3 11:01 BP 106 / 76; Pulse 103; Resp 18; Pulse Ox 97% on R/A; kr3 12:11 BP 124 / 83; Pulse 92; Resp 18; Pulse Ox 96% on R/A; kr3 08:08 Body Mass Index 31.19 (104.33 kg, 182.88 cm) hb ED Course: 08:00 Patient arrived in ED. am2 08:00 Cathi Ferrell is Private Physician. am2 08:04 Leslie Johnson, DMITRI is Primary Nurse. kr3 08:08 Sudhakar Mckinnon [facility]. jmm 08:08 Jet Bey MD is Attending Physician. jmm 08:10 Triage completed. hb 08:10 Arm band placed on. hb 08:15 Bed in low position. Call light in reach. Side rails up X 1. kr3 08:36 Initial lab(s) drawn, by me, sent to lab. Inserted saline lock: 20 gauge in right tm3 antecubital area, using aseptic technique. 09:36 CT Abd/Pelvis - IV Contrast Only In Process Unspecified. EDMS 10:16 initiated a transfer with Amaris Paulson Rn from the [facility] at the request of the patient/ per [facility] does not have GI and will have to decline the patient in transfer. 10:27 initiated a transfer with Neno Vidal Rn from the [facility]. 10:32 connected the biliary environmental sciences professor for [facility] with Sudhakar LITTLE for patient transfer eb consultation. 10:59 assist provider with a rectal hemoccult exam. kr3 11:10 connected the Hospitalist environmental sciences professor for [facility] with Sudhakar Little for patient transfer eb consultation. 11:15 administrative approval given by Neno Vidal Rn/ patient has been accepted to [facility] rm [id number]/ Dr Sameer Casarez has accepted the patient in transfer/ report to be called to [phone]. 12:04 Report given to DMITRI Gill at [facility]. kr3 12:31 Patient transferred, IV remains in place. kr3 Administered Medications: 08:34 Drug: ProTONIX (pantoprazole) 80 mg Route: IVP; Site: right antecubital; kr3 09:33 Follow up: Response: No adverse reaction kr3 08:36 Drug: Zofran (Ondansetron) 4 mg Route: IVP; Site: right antecubital; kr3 09:33 Follow up: Response: No adverse reaction kr3 08:42 Drug: Lactated Ringers Solution 1000 ml Route: IV; Rate: 1000 ml/hr; Site: right kr3 antecubital; 12:12 Follow up: Response: No adverse reaction; IV Status: Completed infusion; IV Intake: kr3 1000ml 08:51 Drug: morphine 4 mg Route: IVP; Infused Over: 4 mins; Site: right antecubital; kr3 09:59 Follow up: Response: No adverse reaction; RASS: Alert and Calm (0) kr3 10:22 Drug: Dilaudid (HYDROmorphone) 1 mg Route: IVP; Site: right antecubital; kr3 12:12 Follow up: Response: No adverse reaction; RASS: Alert and Calm (0) kr3 11:23 Drug: Ketamine 10 mg Route: IVP; Site: right antecubital; kr3 12:13 Follow up: Response: No adverse reaction; RASS: Alert and Calm (0) kr3 11:34 Drug: Zofran (Ondansetron) 4 mg Route: IVP; Site: right antecubital; kr3 12:13 Follow up: Response: No adverse reaction kr3 Medication: 12:32 VIS not applicable for this client. kr3 Intake: 12:12 IV: 1000ml; Total: 1000ml. kr3 Outcome: 11:16 ER care complete, transfer ordered by MD. martinez 12:31 Transferred by ground EMS to [facility]. kr3 12:31 Condition: stable 12:31 Instructed on the need for transfer. 12:32 Patient left the ED. kr3 Signatures: Dispatcher [employer] EDMS Misael Hopper 3 Sudhakar Mckinnon PA PA jmm Baxter, Heather RN RN Karen Piper am2 Ema Lynne Kelley RN RN kr3 Corrections: (The following items were deleted from the chart) 08:13 08:08 Chief complaint: Three weeks s/p appendectomy by Dr. Shearer, reports worsening hb abdominal pain over last few days and vomiting bright red blood x 2 hours. hb 12:05 12:04 Reassessment: kr3 kr3
[2022-06-26 13:20] VITALS: TEMP 98.3
[2022-06-26 13:25] VITALS: BP 124/83; O2SAT 96
== END 2022-06-26 12:32 | disposition short-term general hospital (02) ==
LOC: ER 07:59
DX: K85.90 Acute pancreatitis without necrosis or infection, unspecified (principal); I10 Essential (primary) hypertension; Z20.822 Contact with and (suspected) exposure to COVID-19
CPT/HCPCS: 96361; 85025; 36415; 86900; 86850; 86901; 83690; 80053; 74177; 96375; 96374; 99285; 87811; Q9967; C9113; J1170; J7120; J7050; J2405 ×2

== ENCOUNTER 2023-07-15 17:48 | Inpatient (IN) | payer OTHER ==
[2023-07-15] MEDS ORDERED: ONDANSETRON 4 MG/2 ML VIAL ONE ×2 (18:34→20:25)
[2023-07-15] MEDS ORDERED: MORPHINE 4 MG/ML SYR ONE (18:34)
[2023-07-15] MEDS ORDERED: NA CHLORIDE 0.9% 1,000 ML ONE ×3 (18:34→21:47)
[2023-07-15 18:49] LABS: Absolute Lymphocytes (CBC) 0.6 K/uL (0.7-4.9); Hematocrit 40.3 % (39.6-49.0); Lymphocytes % 9.2 % (15.3-44.8); MCV 84.1 fL (80-100); MPV 7.5 fL (7.6-11.3); Platelets 95 thou/uL (152-406); RBC Red Blood Cell Count 4.79 M/uL (4.33-5.43)
[2023-07-15 19:06] LABS: Albumin 3.8 g/dL (3.4-5.0); Bilirubin Total 1.9 mg/dL (0.2-1.0)
--- NOTE | 2023-07-15 19:48 | RAD REPORT ---
EXAM DESCRIPTION: CT - Abdomen Pelvis W Contrast - 07/15/2023 7:28 pm CLINICAL HISTORY: Abdominal pain COMPARISON: April 2023 TECHNIQUE: Computed axial tomography of the abdomen pelvis was obtained. 100 cc Isovue-300 was admin istered intravenously. Oral contrast was not requested which limits evaluation of bowel and appendix All CT scans are performed using dose optimization technique as appropriate and may include automated exposure control or mA/KV adjustment according to patient size. FINDINGS: Fatty enlarged liver. Spleen 14 centimeters. Coils have been placed into peripancreatic vessels. 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 Mild stranding adjacent to the junction of the pancreatic body/tail. Moderate stranding and small luke unt of ill-defined fluid extends inferior laterally within the left anterior pararenal space. The adj acent proximal descending colonic wall is thickened. No pseudocyst seen. Kidneys and adrenals are unremarkable No evidence of diverticulitis. Postsurgical changes pelvis IMPRESSION: Core does have been placed into peripancreatic vessels. Residual pseudo aneurysm not see n. The peripancreatic stranding and stranding within the left anterior pararenal space and small amount of ill-defined fluid probably moderate pancreatitis. The colonic wall thickening probably is reactive in nature. A less likely possibility is that the inflammation all arises from the colon. Mild hepatomegaly. Fatty infiltration of the liver. Mild splenomegaly.
[2023-07-15 19:52] LABS: Blood Morphology Comment NOT SEEN (NOT SEEN); Platelet Estimate DECR; White Blood Cell Scan OK (OK)
[2023-07-15] MEDS ORDERED: HYDROMORPHONE HCL 2 MG/ML inj ONE (20:25)
--- NOTE | 2023-07-15 20:46 | EDPHYS ---
Physician Documentation [facility] Name: Mckenna Saenz Jr Age: 48 yrs Sex: Male : 1975 Arrival Date: 07/15/2023 Time: 17:48 Bed 7 Private MD: ED Physician Artemio Bojorquez HPI: 07/15 18:59 This 48 yrs old Male presents to ER via Ambulatory with complaints of Abdominal Pain, rt Nausea. 18:59 Patient with prior history of pancreatitis, multiple times presents to the ED with rt abdominal pain to the epigastrium radiating to the back starting a few days ago. He tried to treat at home by drinking clear fluids, states that the symptoms continue to worsen. Reports nausea, vomiting but denies other acute complaints, symptoms are moderate in severity, aching nature, no other aggravating or elevating factors. He had a gallbladder removal done over 1 year ago.. Historical: - Allergies: 18:09 No Known Allergies; as6 - PMHx: 18:09 avascular necrosis; chronic back pain; Hypertension; Pancreatitis; as6 - PSHx: 18:09 Appendectomy; back X 2; Cholecystectomy; as6 - Immunization history:: Adult Immunizations up to date. - Social history:: Smoking status: Patient denies any tobacco usage or history of. - Family history:: not pertinent. ROS: 18:59 Constitutional: Negative for fever, chills, and weight loss, Cardiovascular: Negative rt for chest pain, palpitations, and edema, Respiratory: Negative for shortness of breath, cough, wheezing, and pleuritic chest pain, MS/Extremity: Negative for injury and deformity, Skin: Negative for injury, rash, and discoloration, Neuro: Negative for headache, weakness, numbness, tingling, and seizure, Psych: Negative for depression, anxiety, suicide ideation, homicidal ideation, and hallucinations, 18:59 Abdomen/GI: Positive for abdominal pain, nausea, Exam: 18:59 Constitutional: This is a well developed, well nourished patient who is awake, alert, rt and in no acute distress. Head/Face: Normocephalic, atraumatic. Chest/axilla: Normal chest wall appearance and motion. Nontender with no deformity. No lesions are appreciated. Cardiovascular: Regular rate and rhythm with a normal S1 and S2. No gallops, murmurs, or rubs. Normal PMI, no JVD. No pulse deficits. Respiratory: Lungs have equal breath sounds bilaterally, clear to auscultation and percussion. No rales, rhonchi or wheezes noted. No increased work of breathing, no retractions or nasal flaring. Skin: Warm, dry with normal turgor. Normal color with no rashes, no lesions, and no evidence of cellulitis. MS/ Extremity: Pulses equal, no cyanosis. Neurovascular intact. Full, normal range of motion. Neuro: Awake and alert, GCS 15, oriented to person, place, time, and situation. Cranial nerves II-XII grossly intact. Motor strength 5/5 in all extremities. Sensory grossly intact. Cerebellar exam normal. Normal gait. Psych: Awake, alert, with orientation to person, place and time. Behavior, mood, and affect are within normal limits. 18:59 Abdomen/GI: Tenderness to the epigastrium without rebound, guarding, distention, Vital Signs: 18:05 BP 141 / 97; Pulse 94; Resp 18 S; Temp 98.6(O); Pulse Ox 100% on R/A; Weight 108.86 kg as6 (R); Height 6 ft. 0 in. (R); Pain 10/10; 18:56 BP 151 / 97; Pulse 82; Pulse Ox 100% on R/A; ap3 19:00 BP 155 / 98; Pulse 81; Resp 16; Pulse Ox 99% ; la4 20:00 BP 153 / 97; Pulse 84; Resp 16; Pulse Ox 100% ; la4 21:00 BP 145 / 94; Pulse 82; Resp 16; Pulse Ox 95% ; la4 22:00 BP 156 / 100; Pulse 79; Resp 16; Pulse Ox 97% ; la4 18:05 Body Mass Index 32.55 (108.86 kg, 182.88 cm) as6 18:05 Pain Scale: Adult as6 [place] Coma Score: 22:00 Eye Response: spontaneous(4). Motor Response: obeys commands(6). Verbal Response: la4 oriented(5). Total: 15. MDM: 18:15 Patient medically screened. rt 07/15 18:20 Order name: CBC with Diff; Complete Time: 20:35 rt 07/15 18:20 Order name: CMP; Complete Time: 20:35 rt 07/15 18:20 Order name: Lipase; Complete Time: 20:35 rt 07/15 19:52 Order name: CBC Smear Scan; Complete Time: 20:35 EDMS 07/15 18:20 Order name: CT Abd/Pelvis - IV Contrast Only; Complete Time: 20:35 rt 07/15 20:52 Interpretation: Per Radiologist's finding(s): [place] [id number] [facility] REPORT Name: MCKENNA SAENZ JR Acct Number: [id number] :1975 Age:48 Sex:M Ord Phys: Raymon Cowart Unit Number: [id number] Prim Care Dr: NONE Status: REG ER Exam Date: 07/15/23 EXAM DESCRIPTION: CT - Abdomen Pelvis W Contrast - 07/15/2023 7:28 pm CLINICAL HISTORY: Abdominal pain COMPARISON: April 2023 TECHNIQUE: Computed axial tomography of the abdomen pelvis was obtained. 100 cc Isovue-300 was administered intravenously. Oral contrast was not requested which limits evaluation of bowel and appendix All CT scans are performed using dose optimization technique as appropriate and may include automated exposure control or mA/KV adjustment according to patient size. FINDINGS: Fatty enlarged liver. Spleen 14 centimeters. Coils have been placed into peripancreatic vessels. 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 Mild stranding adjacent to the junction of the pancreatic body/tail. Moderate stranding and small amount of ill-defined fluid extends inferior laterally within the left anterior pararenal space. The adjacent proximal descending colonic wall is thickened. No pseudocyst seen. Kidneys and adrenals are unremarkable No evidence of diverticulitis. Postsurgical changes pelvis IMPRESSION: Core does have been placed into peripancreatic vessels. 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 The peripancreatic stranding and stranding within the left anterior pararenal space and small amount of ill-defined fluid probably moderate pancreatitis. The colonic wall thickening probably is reactive in nature. A less likely possibility is that the inflammation all arises from the colon. Mild hepatomegaly. Fatty infiltration of the liver. Mild splenomegaly. Signed By: Sabas Sanchez MD Signed AT: 07/15/23 1948 . 07/15 18:20 Order name: IV Saline Lock; Complete Time: 18:36 rt 07/15 18:20 Order name: Labs collected and sent; Complete Time: 18:36 rt 07/15 20:46 Order name: Misc. Order: nothing, already done; Complete Time: 21:42 hortencia Administered Medications: 18:47 Drug: NS 0.9% IV 1000 ml IV at 1 bolus Per protocol; 1000 mL bolus Route: IV; Rate: 1 ap3 bolus; Site: right antecubital; 18:47 Drug: Ondansetron IVP 4 mg IVP once; over 2 minutes Route: IVP; Site: right antecubital;ap3 18:47 Drug: morphine IVP or IV 4 mg IVP once over 4 mins Route: IVP; Infused Over: 4 mins; ap3 Site: right antecubital; 20:38 Drug: NS 0.9% IV 1000 ml IV at 1 bolus Per protocol; 1000 mL bolus Route: IV; Rate: 1 la4 bolus; Site: right antecubital; 22:33 Follow up: IV Status: Completed infusion; IV Intake: 1000ml la4 20:46 Drug: HYDROmorphone IVP 2 mg IVP once {Note: given with 10cc of normal saline.} Route: nw1 IVP; Site: right antecubital; 22:31 Follow up: Response: No adverse reaction; No change in condition la4 20:46 Drug: Ondansetron IVP 8 mg IVP once; over 2 minutes Route: IVP; Site: right antecubital;nw1 22:31 Follow up: Response: No adverse reaction; No change in condition la4 22:10 Drug: NS 0.9% IV (20 ml/kg) 20 ml/kg IV at 1 bolus once Route: IV; Rate: 1 bolus; Site: la4 right forearm; 22:33 Follow up: Response: No adverse reaction; No change in condition; IV Status: Completed la4 infusion; IV Intake: 1000ml 22:10 Drug: Potassium Chloride IV 20 mEq IV at per protocol once; administer over 1-2 hours la4 Route: IV; Rate: per protocol; Site: right forearm; 22:32 Follow up: Response: No adverse reaction; No change in condition; IV Status: Completed la4 infusion; IV Intake: 100ml 22:10 Drug: NS 0.9% with KCl IV 20 mEq/L 1000 ml IV at 125 ml/hr continuous Route: IV; Rate: la4 125 ml/hr; Site: right forearm; 22:31 Follow up: Response: No adverse reaction; No change in condition; IV Status: Completed la4 infusion; IV Intake: 1000ml 22:10 Drug: Meropenem IV 1 grams IV at per protocol once; (mix in NS 100 mL) Route: IV; Rate: la4 per protocol; Site: right antecubital; 22:34 Follow up: Response: No adverse reaction; IV Status: Completed infusion; IV Intake: la4 100ml 22:10 Drug: Pantoprazole IVP 40 mg IVP once Route: IVP; Site: right antecubital; la4 22:30 Follow up: Response: No adverse reaction; No change in condition la4 Disposition Summary: 07/15/23 20:45 Hospitalization Ordered Notes: Hospitalization Status: Inpatient Admission hortencia Provider: Dani Magaña cha Location: Telemetry/MedSurg (Inpatient) hortencia Condition: Fair hortencia Problem: new hortencia Symptoms: have improved hortencia Bed/Room Type: Standard [facility] Room Assignment: 218(07/15/23 21:38) pm6 Diagnosis - Abdominal tenderness hortencia - Hypokalemia hortencia - Idiopathic acute pancreatitis without necrosis or infection hortencia Forms: - Medication Reconciliation Form hortencia - SBAR form hortencia - Leadership Thank You Letter hortencia Signatures: Dispatcher [employer] Artemio Church MD MD cha Prokisch, Amanda RN RN ap3 Jorden Kang RN RN as6 Raymon Cowart MD MD rt Andrews, La'Rea, RN RN la4 Nahomi Aparicio RN RN nw1 Dani Magaña MD MD cu Picket, Megan pm6 Corrections: (The following items were deleted from the chart) 21:38 20:45 hortencia pm6
--- NOTE | 2023-07-15 20:46 | ER ---
Nurse's Notes [facility] Name: Terry Saenz Jr Age: 48 yrs Sex: Male : 1975 Arrival Date: 07/15/2023 Time: 17:48 Bed 7 Private MD: Diagnosis: Abdominal tenderness;Hypokalemia;Idiopathic acute pancreatitis without necrosis or infection Presentation: 07/15 18:05 Chief complaint: Patient states: "I'm having some pretty bad abdominal pain. I' had as6 pancreatitis before and this feels the same". Coronavirus screen: At this time, the client does not indicate any symptoms associated with coronavirus-19. Ebola Screen: No symptoms or risks identified at this time. Initial Sepsis Screen: Does the patient meet any 2 criteria? No. Patient's initial sepsis screen is negative. Does the patient have a suspected source of infection? No. Patient's initial sepsis screen is negative. Risk Assessment: Do you want to hurt yourself or someone else? Patient reports no desire to harm self or others. Onset of symptoms was July 13, 2023. 18:05 Acuity: SCOUT 3 as6 18:05 Method Of Arrival: Ambulatory as6 Historical: - Allergies: 18:09 No Known Allergies; as6 - PMHx: 18:09 avascular necrosis; chronic back pain; Hypertension; Pancreatitis; as6 - PSHx: 18:09 Appendectomy; back X 2; Cholecystectomy; as6 - Immunization history:: Adult Immunizations up to date. - Social history:: Smoking status: Patient denies any tobacco usage or history of. - Family history:: not pertinent. Screenin:[address] [facility] ED Fall Risk Assessment (Adult) History of falling in the last 3 months, ap3 including since admission No falls in past 3 months (0 pts). Abuse screen: Denies threats or abuse. Nutritional screening: No deficits noted. Tuberculosis screening: No symptoms or risk factors identified. Assessment: 18:47 General: Appears in no apparent distress. Behavior is calm, cooperative, appropriate ap3 for age. Pain: Complains of pain in abdomen Pain does not radiate. Pain currently is 10 out of 10 on a pain scale. Pain began 2-3 days ago. Neuro: Level of Consciousness is awake, alert, obeys commands, Oriented to person, place, time, situation, Appropriate for age. Cardiovascular: Patient's skin is warm and dry. Respiratory: Airway is patent Respiratory effort is even, unlabored, Respiratory pattern is regular, symmetrical. GI: Abdomen is round Abd is soft. 22:13 Reassessment: No changes from previously documented assessment. Patient is alert, la4 oriented x 3, equal unlabored respirations, skin warm/dry/pink. All ordered medications, updated on plan of care. GI: Bowel sounds present X 4 quads. Abd is soft X 4 quads Abdomen is tender to palpation in right upper quadrant. Vital Signs: 18:05 BP 141 / 97; Pulse 94; Resp 18 S; Temp 98.6(O); Pulse Ox 100% on R/A; Weight 108.86 kg as6 (R); Height 6 ft. 0 in. (R); Pain 10/10; 18:56 BP 151 / 97; Pulse 82; Pulse Ox 100% on R/A; ap3 19:00 BP 155 / 98; Pulse 81; Resp 16; Pulse Ox 99% ; la4 20:00 BP 153 / 97; Pulse 84; Resp 16; Pulse Ox 100% ; la4 21:00 BP 145 / 94; Pulse 82; Resp 16; Pulse Ox 95% ; la4 22:00 BP 156 / 100; Pulse 79; Resp 16; Pulse Ox 97% ; la4 18:05 Body Mass Index 32.55 (108.86 kg, 182.88 cm) as6 18:05 Pain Scale: Adult as6 Vitals: 22:00 Cardiac Rhythm Assessment Regular Sinus rhythm. la4 [place] Coma Score: 22:00 Eye Response: spontaneous(4). Motor Response: obeys commands(6). Verbal Response: la4 oriented(5). Total: 15. ED Course: 17:53 Patient arrived in ED. mr 17:57 Raymon Cowart MD is Attending Physician. rt 18:08 Triage completed. as6 18:09 Arm band placed on. as6 18:36 CBC with Diff Sent. bc6 18:36 CMP Sent. bc6 18:36 Lipase Sent. bc6 18:36 Inserted saline lock: 20 gauge in right antecubital area, using aseptic technique. bc6 Blood collected. 18:47 Karen Mckinney, DMITRI is Primary Nurse. ap3 18:48 Patient has correct armband on for positive identification. Bed in low position. Call ap3 light in reach. Side rails up X 1. Pulse ox on. NIBP on. 19:30 CT Abd/Pelvis - IV Contrast Only In Process Unspecified. EDMS 20:20 Primary Nurse role handed off by Karen Mckinney, DMITRI la4 20:20 Ada Chavarria, RN is Primary Nurse. la4 20:20 Report received from Karen RIZVI. la4 20:35 Attending Physician role handed off by Raymon Cowart MD hortencia 20:35 Artemio Bojorquez MD is Attending Physician. [facility] 20:43 Dani Magaña MD is Hospitalizing Provider. [facility] 22:23 Provided Education on: Notified of room number and plan of care. la4 22:23 No provider procedures requiring assistance completed. Patient admitted, IV remains in la4 place. Administered Medications: 18:47 Drug: NS 0.9% IV 1000 ml IV at 1 bolus Per protocol; 1000 mL bolus Route: IV; Rate: 1 ap3 bolus; Site: right antecubital; 18:47 Drug: Ondansetron IVP 4 mg IVP once; over 2 minutes Route: IVP; Site: right antecubital;ap3 18:47 Drug: morphine IVP or IV 4 mg IVP once over 4 mins Route: IVP; Infused Over: 4 mins; ap3 Site: right antecubital; 20:38 Drug: NS 0.9% IV 1000 ml IV at 1 bolus Per protocol; 1000 mL bolus Route: IV; Rate: 1 la4 bolus; Site: right antecubital; 22:33 Follow up: IV Status: Completed infusion; IV Intake: 1000ml la4 20:46 Drug: HYDROmorphone IVP 2 mg IVP once {Note: given with 10cc of normal saline.} Route: nw1 IVP; Site: right antecubital; 22:31 Follow up: Response: No adverse reaction; No change in condition la4 20:46 Drug: Ondansetron IVP 8 mg IVP once; over 2 minutes Route: IVP; Site: right antecubital;nw1 22:31 Follow up: Response: No adverse reaction; No change in condition la4 22:10 Drug: NS 0.9% IV (20 ml/kg) 20 ml/kg IV at 1 bolus once Route: IV; Rate: 1 bolus; Site: la4 right forearm; 22:33 Follow up: Response: No adverse reaction; No change in condition; IV Status: Completed la4 infusion; IV Intake: 1000ml 22:10 Drug: Potassium Chloride IV 20 mEq IV at per protocol once; administer over 1-2 hours la4 Route: IV; Rate: per protocol; Site: right forearm; 22:32 Follow up: Response: No adverse reaction; No change in condition; IV Status: Completed la4 infusion; IV Intake: 100ml 22:10 Drug: NS 0.9% with KCl IV 20 mEq/L 1000 ml IV at 125 ml/hr continuous Route: IV; Rate: la4 125 ml/hr; Site: right forearm; 22:31 Follow up: Response: No adverse reaction; No change in condition; IV Status: Completed la4 infusion; IV Intake: 1000ml 22:10 Drug: Meropenem IV 1 grams IV at per protocol once; (mix in NS 100 mL) Route: IV; Rate: la4 per protocol; Site: right antecubital; 22:34 Follow up: Response: No adverse reaction; IV Status: Completed infusion; IV Intake: la4 100ml 22:10 Drug: Pantoprazole IVP 40 mg IVP once Route: IVP; Site: right antecubital; la4 22:30 Follow up: Response: No adverse reaction; No change in condition la4 Medication: 18:48 VIS not applicable for this client. ap3 Intake: 22:31 IV: 1000ml; Total: 1000ml. la4 22:32 IV: 100ml; Total: 1100ml. la4 22:33 IV: 1000ml; Total: 2100ml. la4 22:33 IV: 1000ml; Total: 3100ml. la4 22:34 IV: 100ml; Total: 3200ml. la4 Outcome: 20:45 Decision to Hospitalize by Provider. hortencia 22:20 Admitted to Med/surg room 218, with chart, Report called to Jude RIZVI la4 22:20 Condition: improved 22:20 Instructed on the need for admit, Demonstrated understanding of medications, plan for further medication and possible updates in plan of care after Hospitalist evaluation 22:45 Patient left the ED. la4 Signatures: Dispatcher [employer] EDMS Artemio Bojorquez MD MD cha Rivera, Mary, Reg Reg Karen Brewer, RN RN ap3 Jorden Kang, RN RN as6 Raymon Cowart MD MD rt Jessica Cabrera6 Ada Chavarria, RN RN la4 Nahomi Aparicio, RN RN nw1
[2023-07-15] MEDS ORDERED: Meropenem 1000 MG/VIAL IV ONE (21:46)
[2023-07-15] MEDS ORDERED: PANTOPRAZOLE 40 MG INJ ONE (21:46)
--- NOTE | 2023-07-15 21:46 | P.HP ---
Certification for Inpatient With expected LOS: >2 Midnights Practitioner: I am a practitioner with admitting privileges, knowledge of patient current condition, hospital course, and medical plan of care. Services: Services provided to patient in accordance with Admission requirements found in Title 42 Section 412.3 of the Code of Federal Regulations Patient History Date of Service: 07/15/23 Reason for admission: Acute pancreatitis History of Present Illness: 48-year-old male with a history of hypertension and recurrent pancreatitis presented to the ED with 5 days of dull epigastric abdominal pain that radiated to the back. Associated with nausea but no vomiting or diarrhea. Patient has had recurrent pancreatitis and tried to drink clear liquid diet however pain continued to worsen and yesterday became unbearable. He recently had cholecystectomy last month to see if this will reduce the episodes of for his recurrent pancreatitis. States he drinks occasionally about 5 beers last intake was a few days before onset of symptoms. On arrival to the ED his vital signs were within normal. His labs showed Na 134, potassium 3, platelets [address] abdomen and pelvis revealed pancreatitis and mild hepatomegaly with fatty liver infiltration. Patient had received 4 mg IV morphine, 2 mg IV Dilaudid, 4 mg Zofran and 1 L IV fluid bolus in the ED. Allergies No Known Drug Allergies Allergy (Verified 01/17/22 23:04) Unknown Home Medications: Amlodipine [Norvasc*] 10 mg PO DAILY 01/18/22 Lansoprazole [Prevacid 24Hr] 15 mg PO DAILY 01/18/22 carvediloL [Coreg*] 12.5 mg PO BID 01/18/22 - Past Medical/Surgical History Diabetic: No -: Pancreatitis -: history of Alcohol use -: Prior tobacco use -: Questionable Avascular necrosis of bilateral hips -: HTN -: GERD -: Bilateral hip surgery -: Back surgery Psychosocial/ Personal History: Pt lives at home with his children, works at [employer]. - Family History Father Notes: Patient with multiple medical issues in his family. Patient with diabetes and pulmonary disease. - Social History Alcohol use: No CD- Drugs: No Caffeine use: No Review of Systems 10-point ROS is otherwise unremarkable (Except for HPI) Physical Examination - Vital Signs Temperature: 98.6 F Blood Pressure: 141/97 Pulse: 94 Respirations: 18 Pulse Ox (%): 100 - Physical Exam General: Alert, In no apparent distress, Oriented x3 HEENT: Atraumatic, Normocephalic, PERRLA, Mucous membr. moist/pink Neck: Supple, JVD not distended, No Thyromegaly Respiratory: Clear to auscultation bilaterally, Normal air movement Cardiovascular: No edema, Regular rate/rhythm, Normal S1 S2 Gastrointestinal: Normal bowel sounds, Soft and benign, Non-distended, No rebound, No guarding, Tenderness (Epigastric) Musculoskeletal: No swelling, No erythema, No tenderness Integumentary: No rashes, No breakdown - Studies Laboratory Data (last 24 hrs) 07/15/23 07/15/23 18:35 18:35 WBC 6.30 Hgb 13.4 L Hct 40.3 Plt Count 95 L Sodium 134 L Potassium 3.0 L BUN 7 Creatinine 1.12 Glucose 120 H Total Bilirubin 1.9 H AST 48 H ALT 52 Alkaline Phosphatase 245 H Lipase 425 H Assessment and Plan - Plan Acute recurrent pancreatitis IV fluid, pain control with Dilaudid IV and Percocet in between Protonix twice daily Antiemetics, NPO and advance as tolerated Hypertension Resume carvedilol and amlodipine as clinically appropriate - Advance Directives Does patient have a Living Will: No Does patient have a Durable POA for Healthcare: No
[2023-07-15] MEDS ORDERED: KCL 20 MEQ/100 mL IVPB 100 ML IV ONE (21:47)
[2023-07-15] MEDS ORDERED: NS KCL 20MEQ 1,000 ML IV ONE (21:47)
[2023-07-15] MEDS ORDERED: NA CHLORIDE 0.9% 100 ML ONE (21:48)
[2023-07-15] MEDS ORDERED: SODIUM CHLORIDE 0.9% 10ML INJ IV PRN (21:57)
[2023-07-15] MEDS: NA CHLORIDE 0.9% 1,000 ML IV SCH (22:00)
[2023-07-15 22:46] VITALS: BMI 35.1
[2023-07-15] MEDS: Oxycodone HCl/Acetaminophen 5/325 MG TAB PO PRN (23:03)
[2023-07-16] MEDS: HYDROMORPHONE HCL 1 MG/ML INJ IV PRN (00:21)
[2023-07-16 01:20] LABS: Urine Bacteria None Seen /HPF (<20); Urine Bilirubin NEGATIVE (Negative); Urine Blood Negative (Negative); Urine Clarity Clear (Clear); Urine Color Yellow (Yellow); Urine Glucose NEGATIVE (Negative); Urine Protein TRACE (Negative); Urine RBC <5 /HPF (None Seen); Urine Urobilinogen Normal (Normal)
[2023-07-16 04:14] LABS: Hematocrit 34.4 % (39.6-49.0); Lymphocytes % 16.9 % (15.3-44.8); MCV 85.6 fL (80-100); MPV 8.3 fL (7.6-11.3); Platelets 107 thou/uL (152-406); RBC Red Blood Cell Count 4.02 M/uL (4.33-5.43)
[2023-07-16 04:31] LABS: Albumin 3.2 g/dL (3.4-5.0); Bilirubin Total 1.5 mg/dL (0.2-1.0); Magnesium 1.5 mg/dL (1.6-2.4); Potassium 3.2 mEq/L (3.5-5.1); Protein, Total 6.6 g/dL (6.4-8.2)
[2023-07-16] MEDS: PANTOPRAZOLE 40 MG INJ IVP SCH (08:53)
--- NOTE | 2023-07-16 09:25 | P.PN ---
Subjective Date of Service: 07/16/23 Chief Complaint: Acute pancreatitis Reports generalized abdominal pain, no reported nausea, as needed analgesics IV n.p.o. at - Physical Exam General: Alert, In no apparent distress, Oriented x3 HEENT: Atraumatic, Normocephalic, PERRLA, Mucous membr. moist/pink Neck: Supple, JVD not distended, No Thyromegaly Respiratory: Clear to auscultation bilaterally, Normal air movement Cardiovascular: No edema, Regular rate/rhythm, Normal S1 S2 Gastrointestinal: Normal bowel sounds, Soft and benign, Non-distended, No rebound, No guarding, Tenderness (Epigastric) Musculoskeletal: No swelling, No erythema, No tenderness Integumentary: No rashes, No breakdown Review of Systems per HPI (per HPI) Physical Examination - Vital Signs Temperature: 97.1 F Blood Pressure: 132/81 Pulse: 84 Respirations: 16 Pulse Ox (%): 94 - Studies Laboratory Data (last 24 hrs) 07/15/23 07/15/23 18:35 18:35 WBC 6.30 Hgb 13.4 L Hct 40.3 Plt Count 95 L Sodium 134 L Potassium 3.0 L BUN 7 Creatinine 1.12 Glucose 120 H Total Bilirubin 1.9 H AST 48 H ALT 52 Alkaline Phosphatase 245 H Lipase 425 H Assessment And Plan - Plan - Plan Acute recurrent pancreatitis IV fluid, pain control with Dilaudid IV and Percocet in between Protonix twice daily Antiemetics, NPO and advance as tolerated -425 trend lipase IV fluids increased to 150 today 07/16 Hypokalemia 3.0, repeat 3.2 Replaced daily Hypocalcemia 7.8, trend, replace daily Hypo-magnesium 1.5, trend, replaced Thrombocytopenia platelets 95, repeat 107 Microcytic anemia 13 point 4 repeat 11.5 SCDs for DVT Hypertension Resume carvedilol and amlodipine as clinically appropriate DVT Lovenox Full code Diet n.p.o. Discharge Plan: Home - Code Status/Comfort Care Code Status: Full Code Critical Care: No Time Spent Managing PTS Care (In Minutes): 35
[2023-07-16] MEDS: POTASSIUM 25 MEQ EFFERV TAB ONE (11:46)
[2023-07-16] MEDS: POTASSIUM 25 MEQ EFFERV TAB PO ONE (11:48)
[2023-07-16] MEDS: MAGNESIUM SULFATE 1 gm IVPB 1 GM/100 ML BAG IV ONE (11:50)
[2023-07-16] MEDS: ENOXAPARIN 40 MG/0.4 ML SQ SCH (11:50)
[2023-07-16] MEDS: NA CHLORIDE 0.9% 1,000 ML IV SCH (11:50)
[2023-07-16] MEDS: CALCIUM GLUCONATE 1 GM IVPB 1 GM/50 ML BAG IV ONE (13:09)
[2023-07-16] MEDS: ONDANSETRON 4 MG/2 ML VIAL IV PRN (15:53)
[2023-07-16] MEDS: NA CHLORIDE 0.9% 500 ML IV ONE (15:53)
[2023-07-16] MEDS: HYDROMORPHONE HCL 0.5 MG/0.5 ML INJ IV PRN (17:00)
[2023-07-16] MEDS: HYDROMORPHONE HCL 1 MG/ML INJ IV ONE (21:11)
[2023-07-17] MEDS: HYDROCODONE/APAP 10/325 TAB PO PRN (01:16)
[2023-07-17 05:48] LABS: Absolute Lymphocytes (CBC) 0.9 K/uL (0.7-4.9); Hematocrit 34.9 % (39.6-49.0); MPV 7.8 fL (7.6-11.3); Platelets 100 thou/uL (152-406); RBC Red Blood Cell Count 4.06 M/uL (4.33-5.43)
[2023-07-17 06:14] LABS: Magnesium 1.7 mg/dL (1.6-2.4); Potassium 3.5 mEq/L (3.5-5.1)
--- NOTE | 2023-07-17 13:30 | P.PN ---
Date of Service: 07/16/23 Patient has been doing well clinically. Patient is still having some pain and is wanting large doses of Dilaudid and Percocet. I have told him I will continue the Dilaudid for now but will deescalate the Percocet to hydrocodone. Will try to wean off the IV pain medication. Lipase has improved. Patient was able to tolerate a liquid diet with no nausea or vomiting. He denies taking pain medication at home. Patient has been given large doses of narcotics with very little relief. Will continue to monitor and try to review old records as well. May be able to advanced diet to a low-fat diet in the morning.
[2023-07-17] MEDS: POLYETHYL GLY 3350 17 GM/DOSE PO ONE (15:10)
--- NOTE | 2023-07-17 15:23 | P.PN ---
Subjective Date of Service: 07/17/23 Chief Complaint: Acute pancreatitis Pt is resting comfortably in bed. Pt reports no flatulence or BM. he is tolerating CLD. Will reduce frequency of pain med and give miralax. No other complaints. Review of Systems Unremarkable General: Unremarkable Eyes: Unremarkable ENT: Unremarkable Respiratory: Unremarkable Cardiovascular: Unremarkable Gastrointestinal: Abdominal Pain Genitourinary: Unremarkable Musculoskeletal: Unremarkable Integumentary: Unremarkable Neurological: Unremarkable Lymphatics: Unremarkable Physical Examination - Vital Signs Temperature: 97.9 F Blood Pressure: 143/83 Pulse: 86 Respirations: 16 Pulse Ox (%): 96 - Physical Exam General: Alert, In no apparent distress, Oriented x3 HEENT: Atraumatic, Normocephalic Neck: Supple, 2+ carotid pulse no bruit Respiratory: Clear to auscultation bilaterally, Normal air movement Cardiovascular: No edema, Normal pulses, Regular rate/rhythm, Normal S1 S2 Capillary refill: <2 Seconds Gastrointestinal: Normal bowel sounds, Soft and benign, Non-distended Musculoskeletal: No clubbing, No swelling Integumentary: No rashes, No breakdown Neurological: Normal speech, Normal strength at 5/5 x4 extr, Normal tone Lymphatics: No axilla or inguinal lymphadenopathy Assessment And Plan - Plan Acute recurrent pancreatitis: Lipase is trending down 125 <- 275 <- 425. Pt was advised to stop drinking alcohol. Last alcohol intake was last week. Will continue IVF, prn percocet. Constipation: continue prn miralax. Hypokalemia: k is 3.5. Will monitor. Hypocalcemia: Calcium is 9.1. resolved. Hypomagnesemia: mag was 1.5. repleted. Thrombocytopenia: platelets 100. Will avoid antiplatelet. Microcytic anemia: hgb is 11.3. Will monitor H/H Hypertension: Continue carvedilol and amlodipine as clinically appropriate DVT ppx: Lovenox Dispo: Pending hospital course
[2023-07-17] MEDS: carvediloL 12.5 MG TAB PO SCH (17:10)
[2023-07-17] MEDS: AMLODIPINE 10 MG TAB PO SCH (17:11)
[2023-07-18 00:19] VITALS: O2SAT 98
[2023-07-18 06:41] LABS: Absolute Lymphocytes (CBC) 0.8 K/uL (0.7-4.9); Hematocrit 34.2 % (39.6-49.0); Lymphocytes % 21.7 % (15.3-44.8); MCV 85.7 fL (80-100); MPV 7.9 fL (7.6-11.3); Platelets 111 thou/uL (152-406); RBC Red Blood Cell Count 3.99 M/uL (4.33-5.43)
[2023-07-18 06:52] LABS: Magnesium 1.7 mg/dL (1.6-2.4); Potassium 3.5 mEq/L (3.5-5.1)
--- NOTE | 2023-07-18 12:00 | P.PN ---
Subjective Date of Service: 07/18/23 Chief Complaint: Acute pancreatitis Pt is resting comfortably in bed. Pt complains of abd apin. he also had BM this am. He is tolerating CLD. Will reduce frequency of pain med and give miralax. No other complaints. Review of Systems Unremarkable General: Unremarkable Eyes: Unremarkable ENT: Unremarkable Respiratory: Unremarkable Cardiovascular: Unremarkable Gastrointestinal: Abdominal Pain Genitourinary: Unremarkable Musculoskeletal: Unremarkable Integumentary: Unremarkable Neurological: Unremarkable Lymphatics: Unremarkable Physical Examination - Vital Signs Temperature: 97.9 F Blood Pressure: 126/75 Pulse: 86 Respirations: 18 Pulse Ox (%): 126 - Physical Exam General: Alert, In no apparent distress, Oriented x3 HEENT: Atraumatic, Normocephalic, PERRLA Neck: Supple, 2+ carotid pulse no bruit Respiratory: Clear to auscultation bilaterally, Normal air movement Cardiovascular: No edema, Normal pulses, Regular rate/rhythm, Normal S1 S2 Capillary refill: <2 Seconds Gastrointestinal: Normal bowel sounds, Soft and benign, Non-distended, Tenderness Musculoskeletal: No clubbing, No swelling Integumentary: No rashes, No breakdown Neurological: Normal speech, Normal strength at 5/5 x4 extr, Normal tone, Sensation intact Lymphatics: No axilla or inguinal lymphadenopathy Assessment And Plan - Plan Acute recurrent pancreatitis: Lipase is trending down 117<- 125 <- 275 <- 425. Pt was advised to stop drinking alcohol. Last alcohol intake was last week. Will continue IVF, prn percocet. Constipation: continue prn miralax. Hypokalemia: k is 3.5. Will monitor. Hypocalcemia: Calcium is 9.1. resolved. Hypomagnesemia: mag was 1.5. repleted. Thrombocytopenia: platelets 111. Will avoid antiplatelet. Microcytic anemia: hgb is 11.3. Will monitor H/H Hypertension: Continue carvedilol and amlodipine as clinically appropriate DVT ppx: Lovenox Dispo: Pending hospital course
[2023-07-18] MEDS: NA CHLORIDE 0.9% 1,000 ML IV SCH (12:35)
[2023-07-19 07:21] LABS: Absolute Lymphocytes (CBC) 0.9 K/uL (0.7-4.9); Hematocrit 37.7 % (39.6-49.0); Lymphocytes % 26.9 % (15.3-44.8); MCV 86.5 fL (80-100); MPV 7.9 fL (7.6-11.3); Platelets 137 thou/uL (152-406); RBC Red Blood Cell Count 4.35 M/uL (4.33-5.43)
[2023-07-19 07:34] LABS: Potassium 3.4 mEq/L (3.5-5.1)
[2023-07-19 08:55] VITALS: BP 144/82; TEMP 97.2
--- NOTE | 2023-07-19 10:41 | P.DS ---
Admission Date: 07/15/23 Discharge Date: 07/19/23 Disposition: ROUTINE DISCHARGE Discharge Condition: GOOD Reason for Admission: Acute pancreatitis Brief History of Present Illness: 48-year-old male with a history of hypertension and recurrent pancreatitis presented to the ED with 5 days of dull epigastric abdominal pain that radiated to the back. Associated with nausea but no vomiting or diarrhea. Patient has had recurrent pancreatitis and tried to drink clear liquid diet however pain continued to worsen and yesterday became unbearable. He recently had cholecystectomy last month to see if this will reduce the episodes of for his recurrent pancreatitis. States he drinks occasionally about 5 beers last intake was a few days before onset of symptoms. On arrival to the ED his vital signs were within normal. His labs showed Na 134, potassium 3, platelets [address] abdomen and pelvis revealed pancreatitis and mild hepatomegaly with fatty liver infiltration. Patient had received 4 mg IV morphine, 2 mg IV D ilaudid, 4 mg Zofran and 1 L IV fluid bolus in the ED. Hospital Course: Pt is a 48 yo male with past medical history of hypertension and recurrent pancreatitis who presented to the ED with 5 days of dull epigastric abdominal pain that radiated to the back. It was associated with nausea but no vomiting or diarrhea. He drank alcohol about a few days before this admission. Of note, pt recently had cholecystectomy last month to see if this will reduce the episodes of for his recurrent pancreatitis. On admission ,lab studies showed Na 134, potassium 3, platelets [address] abdomen and pelvis revealed pancreatitis and mild hepatomegaly with fatty liver infiltration. We admitted pt for acute recurrent pancreatitis. We gave IVF, prn pain med and kept him NPO. We trended lipase 89<- 117<- 125 <- 275 <- 425. Pt was advised to stop drinking alcohol. We repleted electrolytes and gave prn miralax for constipation. Pt tolerated full liquid diet before discharge. The abd pain improved and pt requested to be discharged. He was in NAD prior to discharge. Vital Signs/Physical Exam: Temp Pulse Resp BP Pulse Ox 97.2 F 78 19 144/82 H 97 07/19/23 08:00 07/19/23 09:07 07/19/23 09:15 07/19/23 09:07 07/19/23 09:15 Laboratory Data at Discharge: WBC 3.50 thou/uL (4.3-10.9) L 07/19/23 06:56 Hgb 12.0 g/dL (13.6-17.9) L 07/19/23 06:56 Hct 37.7 % (39.6-49.0) L 07/19/23 06:56 Plt Count 137 thou/uL (152-406) L 07/19/23 06:56 Sodium 134 mEq/L (136-145) L 07/19/23 06:56 Potassium 3.4 mEq/L (3.5-5.1) L 07/19/23 06:56 BUN 3 mg/dL (7-18) L 07/19/23 06:56 Creatinine 0.63 mg/dL (0.70-1.30) L 07/19/23 06:56 Glucose 96 mg/dL (74-106) 07/19/23 06:56 Magnesium 1.7 mg/dL (1.6-2.4) 07/18/23 06:10 Total Bilirubin 1.5 mg/dL (0.2-1.0) H 07/16/23 03:09 AST 37 U/L (15-37) 07/16/23 03:09 ALT 40 U/L (16-61) 07/16/23 03:09 Alkaline Phosphatase 194 U/L (45-117) H D 07/16/23 03:09 Lipase 89 U/L (13-75) H 07/19/23 06:56 Home Medications: Amlodipine [Norvasc*] 10 mg PO DAILY 01/18/22 Lansoprazole [Prevacid 24Hr] 15 mg PO PRN PRN 01/18/22 carvediloL [Coreg*] 12.5 mg PO BID 01/18/22 Physician Discharge Instructions: Continue ad kath activity. Stop drinking alcohol. Continue home meds. follow up with PCP within 1 - 2 weeks Diet: Regular Activity: Ad kath
== END 2023-07-19 12:06 | disposition home or self-care (01) | DRG 439 ==
LOC: ER 17:48 → ERHOLD 21:26 → 2ND 22:22
PROVIDERS: ADMIT Internal Medicine; ATTEND Hospitalist
DX: K85.00 Idiopathic acute pancreatitis without necrosis or infection (principal); E87.1 Hypo-osmolality and hyponatremia; I10 Essential (primary) hypertension; E87.6 Hypokalemia; E83.51 Hypocalcemia; E83.42 Hypomagnesemia; D69.6 Thrombocytopenia, unspecified; K59.00 Constipation, unspecified; D50.9 Iron deficiency anemia, unspecified; K76.0 Fatty (change of) liver, not elsewhere classified; K21.9 Gastro-esophageal reflux disease without esophagitis; Z79.02 Long term (current) use of antithrombotics/antiplatelets; Z90.49 Acquired absence of other specified parts of digestive tract; Z79.899 Other long term (current) drug therapy
CPT/HCPCS: 36415; 74177; 80048; 80053; 81001; 83690; 83735; 85025; 99285; C9113; J0612; J1170; J1650; J2185; J2405; J3475; J3480; J7030; J7040; Q9967

== ENCOUNTER 2025-03-19 19:42 | Emergency (ER) | payer OTHER, SELFPAY ==
[2025-03-19] MEDS ORDERED: ONDANSETRON 4 MG/2 ML VIAL ONE (20:05)
[2025-03-19] MEDS ORDERED: HYDROMORPHONE HCL 0.5 MG/0.5 ML INJ ONE (20:33)
[2025-03-19 21:06] LABS: ALT/SGPT 94.0 U/L (16-61); AST/SGOT 171.0 U/L (15-37); Albumin 1.6 g/dL (3.4-5.0); Albumin/Globulin Ratio 0.4 (1.1-1.8); Alkaline Phosphatase 153.0 U/L (45-117); Anion Gap 12.2 mEq/L (5.0-15.0); BUN Blood Urea Nitrogen 18.0 mg/dL (7-18); Globulin 4.0 g/dL (2.3-3.5); Glucose Level 128.0 mg/dL (74-106); Lipase 38.0 U/L (13-75); Potassium 3.2 mEq/L (3.5-5.1)
[2025-03-19 21:07] LABS: Absolute Lymphocytes (CBC) 0.7 K/uL (0.7-4.9); Hematocrit 20.2 % (39.6-49.0); Hemoglobin 7.2 g/dL (13.6-17.9); MCH 36.3 pg (27.0-35.0); MCHC 35.3 g/dL (32.0-36.0); MCV 102.8 fL (80-100); MPV 8.1 fL (7.6-11.3); Nucleated RBC Absolute Count 0.0 (0-0); Nucleated Red Blood Cells % 0.1 % (0-0); RBC Red Blood Cell Count 1.97 M/uL (4.33-5.43); White Blood Count 14.60 thou/uL (4.3-10.9)
[2025-03-19 21:46] LABS: Anisocytosis 1+; Blood Morphology Comment NOTED (NOT SEEN); Hypochromasia 1+; White Blood Cell Scan OK (OK)
[2025-03-19 22:46] LABS: PT Prothrombin Time 20.1 SECONDS (10-13.0); PTT, Activated Partial Thromb 42.0 SECONDS (27.2-37.4); Protime INR 1.81
[2025-03-19] MEDS ORDERED: NA CHLORIDE 0.9% 100 ML ONE (23:21)
[2025-03-19] MEDS ORDERED: PIPERACIL/TAZO 4.5 GM VIAL IV ONE (23:21)
--- NOTE | 2025-03-19 23:40 | ER ---
Nurse's Notes [facility] Name: Terry Saenz Jr Age: 50 yrs Sex: Male : 1975 Arrival Date: 03/19/2025 Time: 19:40 Bed 8 Private MD: Diagnosis: Alcoholic cirrhosis of liver Presentation: 03/19 19:57 Chief complaint: Patient states: Pt from home via EMS c/o abd pain. pt has been mf3 receiving treatment for cirrhosis. pt is jaundice. pt a/o x4. Coronavirus screen: At this time, the client does not indicate any symptoms associated with coronavirus-19. Ebola Screen: No symptoms or risks identified at this time. Initial Sepsis Screen: Does the patient meet any 2 criteria? No. Patient's initial sepsis screen is negative. Does the patient have a suspected source of infection? No. Patient's initial sepsis screen is negative. Risk Assessment: Do you want to hurt yourself or someone else? Patient reports no desire to harm self or others. Onset of symptoms was March 19, 2025. 19:57 Method Of Arrival: EMS: [facility] 19:57 Acuity: SCOUT 3 3 Triage Assessment: 19:59 General: Appears in no apparent distress. Behavior is calm, cooperative, appropriate mf3 for age, Smells of. Pain: Denies pain. Complains of pain in abdomen Pain currently is 8 out of 10 on a pain scale. GI: Abdomen is round Reports lower abdominal pain, upper abdominal pain, vomiting. : No signs and/or symptoms were reported regarding the genitourinary system. Derm: Skin is intact, Skin is jaundiced. Musculoskeletal: Capillary refill < 3 seconds. Historical: - Home Meds: 19:59 amlodipine 10 mg tablet daily [Active]; carvedilol 12.5 mg Oral tablet 2 times per day mf3 [Active]; Prevacid 30 mg Oral capsule as needed [Active]; - PMHx: 19:59 avascular necrosis; chronic back pain; etoh abuse; cirrhosis of liver; Pancreatitis; mf3 Hypertension; - PSHx: 19:59 back X 2; Appendectomy; Cholecystectomy; mf3 - Immunization history:: Adult Immunizations up to date. - Infectious Disease History:: Denies. - Social history:: Smoking status: Patient denies any tobacco usage or history of. Screenin:01 [facility] ED Fall Risk Assessment (Adult) History of falling in the last 3 months, mf3 including since admission No falls in past 3 months (0 pts) Confusion or Disorientation No (0 pts) Intoxicated or Sedated No (0 pts) Impaired Gait Yes (1 pt) Mobility Assist Device Used No (0 pt) Altered Elimination No (0 pt) Score/Fall Risk Level 0 - 2 = Low Risk Oriented to surroundings. Abuse screen: Denies threats or abuse. Denies injuries from another. Nutritional screening: No deficits noted. Tuberculosis screening: No symptoms or risk factors identified. Assessment: 20:01 General: Appears in no apparent distress. Behavior is calm, cooperative, appropriate mf3 for age. Pain: Complains of pain in abdomen Pain currently is 8 out of 10 on a pain scale. Neuro: Level of Consciousness is awake, alert, obeys commands. Cardiovascular: Heart tones S1 S2. Respiratory: Airway is patent Trachea midline Respiratory effort is even, unlabored. GI: Bowel sounds present X 4 quads. Abd is non tender. EENT: No signs and/or symptoms were reported regarding the EENT system. Derm: Skin is intact, Skin is dry. 21:00 Reassessment: Patient appears in no apparent distress at this time. Patient and/or jb4 family updated on plan of care and expected duration. Pain level reassessed. Patient is alert, oriented x 3, equal unlabored respirations, skin warm/dry/pink. 22:00 Reassessment: Patient appears in no apparent distress at this time. Patient and/or jb4 family updated on plan of care and expected duration. Pain level reassessed. Patient is alert, oriented x 3, equal unlabored respirations, skin warm/dry/pink. 23:00 Reassessment: Patient appears in no apparent distress at this time. Patient and/or jb4 family updated on plan of care and expected duration. Pain level reassessed. Patient is alert, oriented x 3, equal unlabored respirations, skin warm/dry/pink. 03/20 00:00 Reassessment: Patient appears in no apparent distress at this time. Patient and/or jb4 family updated on plan of care and expected duration. Pain level reassessed. Patient is alert, oriented x 3, equal unlabored respirations, skin warm/dry/pink. 01:00 Reassessment: Patient appears in no apparent distress at this time. Patient and/or jb4 family updated on plan of care and expected duration. Pain level reassessed. Patient is alert, oriented x 3, equal unlabored respirations, skin warm/dry/pink. 02:00 Reassessment: Patient appears in no apparent distress at this time. Patient and/or jb4 family updated on plan of care and expected duration. Pain level reassessed. Patient is alert, oriented x 3, equal unlabored respirations, skin warm/dry/pink. 03:14 Reassessment: Patient appears in no apparent distress at this time. Patient and/or jb4 family updated on plan of care and expected duration. Pain level reassessed. Patient is alert, oriented x 3, equal unlabored respirations, skin warm/dry/pink. attempted to call report, instructed to wait for call back. Vital Signs: 03/19 19:57 BP 104 / 57; Pulse 91; Resp 18; Temp 98.5; Pulse Ox 100% on R/A; Weight 104.33 kg; [facility] Height 6 ft. 0 in. ; Pain 8/10; 21:00 BP 92 / 51; Pulse 86; Resp 16; Pulse Ox 100% ; [facility] 22:30 BP 108 / 82; Pulse 93; Resp 16; Pulse Ox 100% ; [facility] 23:30 BP 106 / 63; Pulse 100; Resp 17; Pulse Ox 100% ; [facility] 03/20 00:30 BP 109 / 67; Pulse 92; Resp 18; Pulse Ox 100% ; [facility] 01:36 BP 85 / 51; Pulse 87; Resp 18; Pulse Ox 99% ; [facility] 02:30 BP 88 / 54; Pulse 87; Resp 11; Pulse Ox 99% on R/A; [facility] 03:14 BP 103 / 55; Pulse 85; Resp 12; Pulse Ox 99% on R/A; [facility] 03:40 BP 93 / 48; Pulse 92; Resp 17; Pulse Ox 98% on R/A; [facility] 03/19 19:57 Body Mass Index 31.19 (104.33 kg, 182.88 cm) [facility] 03/19 19:57 Pain Scale: Adult [facility] Jessica Coma Score: 03/19 20:01 Eye Response: spontaneous(4). Motor Response: obeys commands(6). Verbal Response: 3 oriented(5). Total: 15. ED Course: 19:40 Patient arrived in ED. rv1 19:49 Checo Juan DO is Attending Physician. tt7 19:56 Corina Narayanan, RN is Primary Nurse. mf3 19:59 Triage completed. mf3 19:59 Arm band placed on left wrist. mf3 20:01 Bed in low position. Call light in reach. Side rails up X2. Provided Education on: pt 3 A/O X4. 20:14 CBC with Diff Sent. mf3 20:14 CMP Sent. mf3 20:14 Lipase Sent. mf3 20:30 AMMONIA Sent. mf3 20:39 Inserted saline lock: 20 gauge in right antecubital area, using aseptic technique. 3 Blood collected. Flushed with 10 mL NS. 22:48 CXR XRAY In Process Unspecified. EDMS 23:08 CT Abd/Pelvis - IV Contrast Only In Process Unspecified. EDMS 03/20 03:42 No provider procedures requiring assistance completed. 3 03:42 Patient transferred, IV remains in place. 3 Administered Medications: 03/19 20:13 Drug: Ondansetron IVP 4 mg IVP once; over 2 minutes Route: IVP; Site: right antecubital;3 20:39 Drug: HYDROmorphone IVP 0.5 mg IVP once Route: IVP; Site: right antecubital; 3 03/20 03:41 Follow up: Response: No adverse reaction [facility] 03/19 23:29 Drug: Piperacillin-Tazobactam IVPB 4.5 grams IVPB once over 60 mins; (mix in 100 mL NS) jb4 Route: IVPB; Infused Over: 60 mins; Site: right antecubital; 03/20 03:41 Follow up: Response: No adverse reaction 3 03:43 Follow up: IV Status: Completed infusion 3 00:49 Drug: HYDROmorphone IVP 0.5 mg IVP once Route: IVP; Site: right antecubital; 3 03:41 Follow up: Response: No adverse reaction 3 02:26 Drug: NS 0.9% IV 500 ml 500 ml IV at 1 bolus once; to be given as a bolus over 30 jb4 minutes Volume: 500 ml; Route: IV; Rate: 1 bolus; Site: right antecubital; 03:41 Follow up: Response: No adverse reaction; IV Status: Completed infusion mf3 Medication: 03/19 20:01 VIS not applicable for this client. mf3 Outcome: 23:39 ER care complete, transfer ordered by tt7 03/20 03:42 Transferred by ground EMS to [facility], [facility] [place] [place], [facility] Condition: stable Instructed on the need for transfer, 03:43 Patient left the ED. 3 Signatures: Dispatcher [employer] EDMS Terry Salazar RN RN jb4 Ángela Story rv1 Corina Narayanan RN RN mf3 Checo Juan DO DO tt7 Corrections: (The following items were deleted from the chart) 01:35 01:33 BP 108 / 82; Pulse 93bpm; Resp 16bpm; Pulse Ox 100%; 3 mf3 01:36 01:34 BP 109 / 67; Pulse 92bpm; Resp 18bpm; Pulse Ox 100%; 3 3 03:24 03:14 Reassessment: Patient appears in no apparent distress at this time. Patient jb4 and/or family updated on plan of care and expected duration. Pain level reassessed. Patient is alert, oriented x 3, equal unlabored respirations, skin warm/dry/pink. jb4
--- NOTE | 2025-03-19 23:40 | EDPHYS ---
Physician Documentation [facility] Name: Terry Saenz Jr Age: 50 yrs Sex: Male : 1975 Arrival Date: 03/19/2025 Time: 19:40 Bed 8 Private MD: ED Physician Checo Juan HPI: 03/20 07:31 This 50 yrs old Male presents to ER via EMS with complaints of Abdominal Pain. tt7 07:31 Patient reports 3 days of epigastric abdominal pain with associated nausea and tt7 vomiting, pain is sharp in character and intermittent, no associated fever, he has a history of cirrhosis and pancreatitis, was recently hospitalized at [facility] in the [facility] for decompensated cirrhosis approximately 1 week ago. Historical: - Home Meds: 03/19 19:59 amlodipine 10 mg tablet daily [Active]; carvedilol 12.5 mg Oral tablet 2 times per day mf3 [Active]; Prevacid 30 mg Oral capsule as needed [Active]; - PMHx: 19:59 avascular necrosis; chronic back pain; etoh abuse; cirrhosis of liver; Pancreatitis; mf3 Hypertension; - PSHx: 19:59 back X 2; Appendectomy; Cholecystectomy; mf3 - Immunization history:: Adult Immunizations up to date. - Infectious Disease History:: Denies. - Social history:: Smoking status: Patient denies any tobacco usage or history of. ROS: 03/20 07:32 Constitutional: negative for fever. Cardiovascular: negative for chest pain. tt7 Respiratory: negative for shortness of breath. MS/Extremity: negative for injury and deformity. Skin: negative for rash. Neuro: negative for focal weakness. Abdomen/GI: Positive for abdominal pain, nausea and vomiting, Negative for hematemesis, black/tarry stool, Exam: 07:33 Constitutional: vital signs reviewed, extremely jaundiced appearing. Head/Face: tt7 normocephalic, atraumatic. Eyes: no conjunctival injection, significant scleral icterus bilaterally ENT: mucus membranes moist. Neck: trachea midline, no JVD, no meningismus. Chest/axilla: normal chest wall appearance and motion, nontender, no crepitus. Cardiovascular: regular rate and rhythm, no murmurs, no rubs, no lower extremity edema. Respiratory: normal respiratory effort, no accessory muscle use, lungs CTAB. Abdomen/GI: soft, nondistended, moderate diffuse abdominal tenderness, no guarding or rebound, negative Pelaez's sign, no McBurney point tenderness. Skin: warm, dry, intact, normal turgor, extremely jaundiced, no rash MS/ Extremity: normal ROM of extremities, no gross deformities. Neuro: alert and oriented with appropriate mental status, normal speech, follows commands, no focal neurologic deficits. Psych: appropriate mood and affect. Vital Signs: 03/19 19:57 BP 104 / 57; Pulse 91; Resp 18; Temp 98.5; Pulse Ox 100% on R/A; Weight 104.33 kg; 3 Height 6 ft. 0 in. ; Pain 8/10; 21:00 BP 92 / 51; Pulse 86; Resp 16; Pulse Ox 100% ; 3 22:30 BP 108 / 82; Pulse 93; Resp 16; Pulse Ox 100% ; 3 23:30 BP 106 / 63; Pulse 100; Resp 17; Pulse Ox 100% ; 3 03/20 00:30 BP 109 / 67; Pulse 92; Resp 18; Pulse Ox 100% ; 3 01:36 BP 85 / 51; Pulse 87; Resp 18; Pulse Ox 99% ; 3 02:30 BP 88 / 54; Pulse 87; Resp 11; Pulse Ox 99% on R/A; jb4 03:14 BP 103 / 55; Pulse 85; Resp 12; Pulse Ox 99% on R/A; jb4 03:40 BP 93 / 48; Pulse 92; Resp 17; Pulse Ox 98% on R/A; 3 03/19 19:57 Body Mass Index 31.19 (104.33 kg, 182.88 cm) 3 03/19 19:57 Pain Scale: Adult 3 Jessica Coma Score: 03/19 20:01 Eye Response: spontaneous(4). Motor Response: obeys commands(6). Verbal Response: 3 oriented(5). Total: 15. MDM: 19:49 Medical Screening Exam initiated tt7 03/20 07:34 Differential Diagnosis Acute liver failure, hepatic encephalopathy, sepsis, tt7 pancreatitis, hyponatremia, GI hemorrhage. Data reviewed: vital signs, nurses notes, old medical records, lab test result(s), radiologic studies. Counseling: I had a detailed discussion with the patient and/or guardian regarding the historical points, exam findings, and any diagnostic results supporting the discharge/admit diagnosis, lab results, radiology results, the need to transfer to another facility. 07:37 ED course: 50-year-old male with abdominal pain, he is extremely jaundiced, has a tt7 history of cirrhosis, workup was ordered including laboratory studies and CT imaging of the abdomen/pelvis, labs show a leukocytosis of 14,000, anemia with hemoglobin of 7.2, thrombocytopenia with platelets of 67,000, hyponatremia with sodium of 124, mild acidosis with bicarb of 20, elevated total bilirubin of 26.4,, I reviewed patient's past medical records from this facility and patient does appear to have a drop in his hemoglobin of about 2 point send the hyponatremia appears acute, most recent sodium was approximately 131, CT imaging does not demonstrate any acute findings, will transfer to [facility] for continuity of care with his liver team, I discussed the case with hospitalist at [facility] who accepts patient for transfer. 03/19 19:56 Order name: CBC with Diff; Complete Time: 22:21 tt7 03/19 19:56 Order name: CMP; Complete Time: 22:21 tt7 03/19 19:56 Order name: Lipase; Complete Time: 22:21 tt7 03/19 19:56 Order name: AMMONIA; Complete Time: 22:21 tt7 03/19 21:46 Order name: CBC Smear Scan; Complete Time: 22:21 EDMS 03/19 22:24 Order name: PT-INR; Complete Time: 23:28 tt7 03/19 22:27 Order name: Blood Culture Adult (2) tt7 03/19 22:27 Order name: Lactate w/ 2H reflex if indic.; Complete Time: 01:32 tt7 03/19 22:40 Order name: PTT, Activated Partial Thromb; Complete Time: 23:28 EDMS 03/19 23:58 Order name: Ghost Lactate-NO COLLECT Timer; Complete Time: 02:10 EDMS 03/20 03:12 Order name: Lactate Sepsis 2 HR Follow-up; Complete Time: 03:17 EDMS 03/19 22:27 Order name: CXR XRAY; Complete Time: 07:35 tt7 03/19 22:27 Order name: CT Abd/Pelvis - IV Contrast Only; Complete Time: 01:32 tt7 03/19 19:56 Order name: IV Saline Lock; Complete Time: 20:13 tt7 03/19 19:56 Order name: Labs collected and sent; Complete Time: 20:14 tt7 03/19 22:27 Order name: Cardiac monitoring; Complete Time: 23:17 tt7 03/19 22:27 Order name: IV Saline Lock - Large Bore; Complete Time: 23:36 tt7 03/19 22:27 Order name: O2 Per Protocol; Complete Time: 23:36 tt7 03/19 22:27 Order name: O2 Sat Monitoring; Complete Time: 23:36 tt7 03/19 22:27 Order name: Vital Signs; Complete Time: 23:36 tt7 Administered Medications: 03/19 20:13 Drug: Ondansetron IVP 4 mg IVP once; over 2 minutes Route: IVP; Site: right antecubital;3 20:39 Drug: HYDROmorphone IVP 0.5 mg IVP once Route: IVP; Site: right antecubital; 3 03/20 03:41 Follow up: Response: No adverse reaction 3 03/19 23:29 Drug: Piperacillin-Tazobactam IVPB 4.5 grams IVPB once over 60 mins; (mix in 100 mL NS) jb4 Route: IVPB; Infused Over: 60 mins; Site: right antecubital; 03/20 03:41 Follow up: Response: No adverse reaction mf3 03:43 Follow up: IV Status: Completed infusion mf3 00:49 Drug: HYDROmorphone IVP 0.5 mg IVP once Route: IVP; Site: right antecubital; mf3 03:41 Follow up: Response: No adverse reaction 3 02:26 Drug: NS 0.9% IV 500 ml 500 ml IV at 1 bolus once; to be given as a bolus over 30 jb4 minutes Volume: 500 ml; Route: IV; Rate: 1 bolus; Site: right antecubital; 03:41 Follow up: Response: No adverse reaction; IV Status: Completed infusion 3 Disposition: 07:38 Co-signature as Attending Physician, Checo Juan DO. tt7 Disposition Summary: 03/19/25 23:39 Transfer Ordered Notes: Transfer Location: [facility] tt7 Reason: Higher level of care tt7 Condition: Serious tt7 Problem: an acute exacerbation tt7 Symptoms: have worsened tt7 Accepting Physician: (03/20/25 03:43) mf3 Diagnosis - Alcoholic cirrhosis of liver tt7 Forms: - Medication Reconciliation Form tt7 - SBAR form tt7 Signatures: Dispatcher [employer] EDMS Terry Salazar, RN RN jb4 Corina Narayanan RN RN mf3 Checo Juan, DO tt7 Corrections: (The following items were deleted from the chart) 03/19 22:28 22:28 Abdomen Pelvis W Con+CT.RAD.BRZ ordered. EDMS EDMS 22:39 22:28 PTT, ACTIVATED+COAG.LAB.BRZ ordered. EDMS EDMS 03/20 03:43 03/19 23:39 tt7 mf3
[2025-03-20] MEDS ORDERED: HYDROMORPHONE HCL 0.5 MG/0.5 ML INJ ONE (00:42)
--- NOTE | 2025-03-20 00:45 | RAD REPORT ---
EXAM: CT Abdomen and Pelvis With Intravenous Contrast CLINICAL HISTORY: The patient is 50 years old and is Male; ABD PAIN TECHNIQUE: Axial computed tomography images of the abdomen and pelvis with intravenous contrast. Sagittal an d coronal reformatted images were created and reviewed. This CT exam was performed using one or more of the following dose reduction techniques: automated exposure control, adjustment of the mA a nd/or kV according to patient size, and/or use of iterative reconstruction technique. COMPARISON: March 02, 2025 FINDINGS: LUNG BASES: Unremarkable. No mass. No consolidation. ABDOMEN: LIVER: The liver is enlarged and diffusely fatty. The liver is heterogeneous in appearance. GALLBLADDER AND BILE DUCTS: Surgical clips are present in the right upper quadrant, consistent wi th previous cholecystectomy. PANCREAS: The pancreas is atrophic. SPLEEN: The spleen is enlarged and heterogeneous. ADRENALS: Unremarkable. No mass. KIDNEYS AND URETERS: Unremarkable. The kidneys enhance symmetrically. No obstructing renal or ure teral calculus is seen. No hydronephrosis or hydroureter. No perinephric fluid or stranding. STOMACH AND BOWEL: The stomach is minimally filled with fluid. The small bowel is normal in calib er. Stool is present throughout the colon. Scattered colonic diverticula are noted without surrounding inflammation. There is no evidence of obstruction. PELVIS: APPENDIX: No findings to suggest acute appendicitis. BLADDER: The bladder is well distended. REPRODUCTIVE: Unremarkable as visualized. ABDOMEN and PELVIS: INTRAPERITONEAL SPACE: Mild ascites is present throughout the abdomen and pelvis. No free air. BONES/JOINTS: Bilateral hip prostheses are present causing streak artifact limiting evaluation. P ostsurgical change at L5-S1 is present. There is no acute fracture. SOFT TISSUES: Mild diffuse body wall edema is present. VASCULATURE: Enlargement of the splenic vein is noted. Vascular coils within the right upper qu adrant are present. Recanalization of the umbilical vein is noted. The IVC is duplex. Minimal atherosclerosis of the vasculature is present. LYMPH NODES: Unremarkable. No enlarged lymph nodes. IMPRESSION: 1. Cirrhotic liver with splenomegaly, ascites and findings consistent with portal hypertension. 2. Colonic diverticulosis. No bowel obstruction. Electronically signed by: Elif Cleveland MD 03/19/2025 11:57 PM CDT RP Due to temporary technical issues with the PACS/[employer] reporting system, reports are being tatyana d by the in-house radiologist without review as a courtesy to ensure prompt reporting the interpreting radiologist is fully responsible for the content of the report. Transcribed Date/Time: 03/20/2025 12:45 AM
[2025-03-20] MEDS ORDERED: NA CHLORIDE 0.9% 500 ML ONE (02:20)
[2025-03-20 04:16] VITALS: TEMP 98.5
[2025-03-20 04:27] VITALS: BP 93/48; O2SAT 98
--- NOTE | 2025-03-20 05:10 | RAD REPORT ---
TIME OF STUDY: 03/19/2025 10:27 PM CDT REASON FOR EXAM: FEVER COMPARISON: None. FINDINGS: AP view of the chest was obtained, chest 1 view. Lungs: The lungs are adequately inflated. Bilateral hazy airspace opacities are noted. Elevation of t he right hemidiaphragm is noted.. Pleura: No pneumothorax. There is no pleural effusion. Heart and Mediastinum: Normal cardiomediastinal silhouette and great vessels.. Bones: No acute bony abnormality.. IMPRESSION: 1. Hazy opacities noted bilaterally. 2. Elevation of the right hemidiaphragm. Electronically signed by: Gerald Selby MD 03/19/2025 11:37 PM CDT RP Due to temporary technical issues with the PACS/[employer] reporting system, reports are being tatyana d by the in-house radiologist without review as a courtesy to ensure prompt reporting the interpreting radiologist is fully responsible for the content of the report. Transcribed Date/Time: 03/20/2025 5:09 AM
== END 2025-03-20 03:43 | disposition short-term general hospital (02) ==
LOC: ER 19:42
DX: K70.30 Alcoholic cirrhosis of liver without ascites (principal)
CPT/HCPCS: 96365; 87040 ×2; 85025; 36415; 82140; 85610; 83605 ×2; 85730; 83690; 80053; 74177; 71045; 96375; 99285; 96366; Q9967; J1171 ×2; J2405; J7040